=== PATIENT | female | born 1940 | race Caucasian/White ===

== ENCOUNTER 2017-03-09 05:23 | Inpatient (IN) ==
--- NOTE | 2017-03-07 13:31 | XRay Report ---
CLINICAL INFORMATION: Preoperative evaluation TECHNIQUE: Upright PA chest x-ray COMPARISON: Previous examinations dated 10/05/2016, 06/04/2016, 03/10/2016 FINDINGS: Lungs are negative. No parenchymal infiltrate or mass. Heart size and vascularity are normal. Mignon and mediastinum are negative. No pulmonary edema. No pulmonary congestion. Incidental note is made of an anterior cervical fusion plate IMPRESSION: Negative PA chest x-ray Interpreted and Authenticated by: Terence Quick 03/07/17
[2017-03-07 13:56] LABS: Basophils # (Auto) 0 K/mcL (0.0-0.3); Basophils % (Auto) 0.8 % (0.0-2.0); Eosinophils # (Auto) 0.2 K/mcL (0.0-0.7); Eosinophils % (Auto) 3.2 % (0.0-7.0); Granulocytes % (Auto) 65.2 % (38.0-78.0); Lymphocytes # (Auto) 1.4 K/mcL (1.5-4.8); Lymphocytes % (Auto) 22.6 % (15.5-49.0); Mean Cell Volume 93.9 fL (80.0-100.0); Mean Corpuscular HGB Conc 33.1 g/dL (31.0-36.0); Mean Corpuscular Hemoglobin 31.1 pg (26.0-34.0); Monocytes # (Auto) 0.5 K/mcL (0.1-0.9); Monocytes % (Auto) 8.2 % (1.0-12.0); Platelet Count 331 K/mcL (140-440); RBC 3.32 M/mcL (4.00-5.20); Red Cell Distribution Width 15.9 % (11.5-14.5)
[2017-03-07 14:05] LABS: Appearance,Urine CLEAR; Bilirubin,Urine NEG (NEG); Color,Urine YELLOW; Glucose,Urine (UA) NEGATIVE (NEG); Leukocyte Esterase,Urine NEG /uL (NEG); Nitrate,Urine NEG (NEG); Protein,Urine NEG (NEG); Specific Gravity,Urine 1.017 (1.000-1.035); Urine Blood NEG mg/dL (<0.03); Urobilinogen,Urine NEG (NEG)
[2017-03-07 14:22] LABS: ALT/SGPT 19 U/l (0-40); Albumin 4.6 gm/dL (3.2-5.2); Albumin/Globulin Ratio 2.1 (1.0-2.3); Alkaline Phosphatase 68 U/L (39-117); Blood Urea Nitrogen 34 mg/dl (8-23)
[~2017-03-09 05:23] MED LIST: 0.9 % SODIUM CHLORIDE 250 ML IV SCH
[2017-03-09] MEDS ORDERED: PIPERACILLIN SODIUM/TAZOBACTAM 3.375 GM in DEXTROSE 5% IN WATER 50 ML IV SCH (06:30)
[2017-03-09] MEDS ORDERED: metroNIDAZOLE 500 MG/100 ML BAG IV SCH (06:30)
[2017-03-09] MEDS ORDERED: PIPERACILLIN SODIUM/TAZOBACTAM 3.375 GM VIAL IV ONE (08:20)
[2017-03-09] MEDS ORDERED: LIDOCAINE HCL/PF 100 MG/5 ML SYRINGE IV ONE (08:20)
[2017-03-09] MEDS ORDERED: metroNIDAZOLE 500 MG/100 ML BAG IV ONE ×2 (08:20→11:10)
[2017-03-09] MEDS ORDERED: GLYCOPYRROLATE 0.2 MG/ML VIAL IV ONE (08:20)
[2017-03-09] MEDS ORDERED: fentaNYL 250 MCG/5 ML VIAL IV ONE (08:20)
[2017-03-09] MEDS ORDERED: MIDAZOLAM 2 MG/2 ML VIAL IV ONE (08:20)
[2017-03-09] MEDS ORDERED: ROCURONIUM 10 MG/ML ML IV ONE (08:20)
[2017-03-09] MEDS ORDERED: PROPOFOL 200 MG/20 ML VIAL IV ONE (08:20)
[2017-03-09] MEDS ORDERED: DEXAMETHASONE 10 MG/ML VIAL IV ONE (08:20)
[2017-03-09] MEDS ORDERED: HETASTARCH 6% 500 ML BAG IV ONE (08:20)
[2017-03-09] MEDS ORDERED: HYDROmorphone 2 MG/ML SYRINGE IV ONE (08:20)
[2017-03-09] MEDS ORDERED: ONDANSETRON 4 MG/2 ML VIAL IV ONE (08:20)
[2017-03-09] MEDS ORDERED: ePHEDrine 50 MG/ML AMPUL IV ONE (08:20)
[2017-03-09] MEDS ORDERED: NEOSTIGMINE 1 MG/ML VIAL IV ONE (08:20)
[2017-03-09] MEDS ORDERED: PHENYLEPHRINE 10 MG/ML VIAL IV ONE (08:20)
[2017-03-09] MEDS ORDERED: PIPERACILLIN SODIUM/TAZOBACTAM 3.375 GM in DEXTROSE 5% IN WATER 50 ML IV ONE (11:09)
--- NOTE | 2017-03-09 14:15 | Brief Operative Note ---
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
[2017-03-09] MEDS ORDERED: ACETAMINOPHEN 1,000 MG/100 ML BOTTLE IV PRN ×2 (14:33→14:36)
[2017-03-09] MEDS ORDERED: HYDROmorphone 2 MG/ML SYRINGE IV PRN (14:33)
[2017-03-09] MEDS ORDERED: 0.9 % SODIUM CHLORIDE 250 ML IV SCH (14:36)
[2017-03-09] MEDS: 0.9 % SODIUM CHLORIDE 1,000 ML IV SCH (15:10)
[2017-03-09] MEDS: HYDROmorphone 2 MG/ML SYRINGE IV PRN ×3 (16:21→21:53)
[2017-03-09] MEDS: ONDANSETRON 4 MG/2 ML VIAL IV PRN (16:40)
[2017-03-09] MEDS: metroNIDAZOLE 500 MG/100 ML BAG IV SCH ×2 (17:42→22:44)
[2017-03-09] MEDS: METOCLOPRAMIDE 10 MG/2 ML VIAL IV SCH (17:44)
[2017-03-09] MEDS ORDERED: METOCLOPRAMIDE 10 MG/2 ML VIAL IV SCH (18:00)
[2017-03-09] MEDS: PIPERACILLIN SODIUM/TAZOBACTAM 3.375 GM in DEXTROSE 5% IN WATER 50 ML IV SCH (18:52)
[2017-03-09] MEDS: 0.9 % SODIUM CHLORIDE 10 ML SYRINGE IV SCH (21:54)
[2017-03-10] MEDS: METOCLOPRAMIDE 10 MG/2 ML VIAL IV SCH ×4 (00:08→17:33)
[2017-03-10] MEDS: PIPERACILLIN SODIUM/TAZOBACTAM 3.375 GM in DEXTROSE 5% IN WATER 50 ML IV SCH ×4 (00:08→17:34)
[2017-03-10] MEDS: 0.9 % SODIUM CHLORIDE 1,000 ML IV SCH ×5 (00:09→20:31)
[2017-03-10] MEDS: ONDANSETRON 4 MG/2 ML VIAL IV PRN (04:09)
[2017-03-10] MEDS: HYDROmorphone 2 MG/ML SYRINGE IV PRN ×4 (04:09→23:25)
[2017-03-10] MEDS: metroNIDAZOLE 500 MG/100 ML BAG IV SCH ×5 (04:42→22:57)
[2017-03-10] MEDS: 0.9 % SODIUM CHLORIDE 10 ML SYRINGE IV SCH ×3 (05:29→21:11)
[2017-03-10 06:37] LABS: Basophils # (Auto) 0 K/mcL (0.0-0.3); Basophils % (Auto) 0 % (0.0-2.0); Eosinophils # (Auto) 0 K/mcL (0.0-0.7); Eosinophils % (Auto) 0 % (0.0-7.0); Granulocytes % (Auto) 92.4 % (38.0-78.0); Lymphocytes # (Auto) 0.3 K/mcL (1.5-4.8); Lymphocytes % (Auto) 1.9 % (15.5-49.0); Mean Cell Volume 94.1 fL (80.0-100.0); Mean Corpuscular HGB Conc 33.3 g/dL (31.0-36.0); Mean Corpuscular Hemoglobin 31.3 pg (26.0-34.0); Monocytes # (Auto) 0.8 K/mcL (0.1-0.9); Monocytes % (Auto) 5.7 % (1.0-12.0); Platelet Count 284 K/mcL (140-440); RBC 2.87 M/mcL (4.00-5.20); Red Cell Distribution Width 16.3 % (11.5-14.5)
[2017-03-10] MEDS: PANTOPRAZOLE 40 MG VIAL IV SCH (07:26)
[2017-03-10] MEDS ORDERED: PANTOPRAZOLE 40 MG VIAL IV SCH (07:30)
--- NOTE | 2017-03-10 11:41 | General Surgery Progress Note ---
Subjective Patient reports: still having pain, no flatus, no bowel movement, afebrile Narrative: Note initiated : 03/10/17 at 11:38 am Service Date, if different from initiated Date: [] Patient: Danni Dhillon 76 y/o F admitted on 03/09/17 for Colostomy Closure. Chief Complaint: [Patient is doing well. She has had an uneventful night. Her systolic blood pressure has been in the 90s. Her hemoglobin has drifted down to 9 and she will probably need to be transfused. Output through her DURAN is bloody. She does not complain of nausea. She denies chest pain or shortness of breath. Urine output has been acceptable.] Objective Temp Pulse Resp BP Pulse Ox 97.7 F 66 18 97/45 97 03/10/17 08:00 03/10/17 03:58 03/10/17 08:00 03/10/17 08:00 03/10/17 08:00 - Additional Data Intake & Output - Last 24 hours: Intake & Output 03/08/17 03/09/17 03/10/17 03/11/17 05:59 05:59 05:59 05:59 Intake Total 3400 / 3400 Output Total 1515 / 1515 30 / 30 Balance 1885 / 1885 -30 / -30 Weight 170 lb 165 lb 8 oz 175 lb 8 oz - General physical appearance moderate distress, moderate pain - Eyes PERRL - ENT no congestion - Neck no venous distension - Respiratory normal expansion, normal respiratory effort, clear to auscultation - Cardiovascular Cardiovascular exam: Present: normal rate and rhythm, RRR, +S1, +S2. Absent: JVD - Abdomen soft, tender, bowel sounds, distended (Abdomen is distended with active bowel sounds. Her incision looks good.) - Integumentary no rash, no growths, no abnormal pigmentation - Neurologic normal coordination, normal sensation - Psychiatric oriented to time, oriented to person, oriented to place, speech is normal, memory intact - Labs 03/10/17 03:55 03/07/17 12:26 Assessment and Plan (1) Status post colostomy takedown Status: Acute Assessment and plan: Stable first postoperative day Current Visit: Yes (2) Anemia Status: Chronic Assessment and plan: We will transfuse 2 units of packed red cells Current Visit: No (3) Gastroesophageal reflux disease with esophagitis Status: Chronic Assessment and plan: Pantoprazole 40 mg IV daily Current Visit: No (4) Hypertension, essential, benign Status: Chronic Assessment and plan: Hold antihypertensive medications Current Visit: No - Time Spent With Patient Total time spent is greater than 50% in coordination of care (as documented) at patient's floor/unit and/or counseling patient:
[2017-03-10] MEDS ORDERED: 0.9 % SODIUM CHLORIDE 250 ML IV SCH (11:45)
[2017-03-11] MEDS: PIPERACILLIN SODIUM/TAZOBACTAM 3.375 GM in DEXTROSE 5% IN WATER 50 ML IV SCH ×4 (00:11→18:42)
[2017-03-11] MEDS: METOCLOPRAMIDE 10 MG/2 ML VIAL IV SCH ×4 (00:14→17:19)
[2017-03-11] MEDS: 0.9 % SODIUM CHLORIDE 1,000 ML IV SCH ×3 (04:40→15:50)
[2017-03-11] MEDS: metroNIDAZOLE 500 MG/100 ML BAG IV SCH ×4 (05:32→23:00)
[2017-03-11] MEDS: 0.9 % SODIUM CHLORIDE 10 ML SYRINGE IV SCH ×3 (05:53→22:10)
[2017-03-11 06:21] LABS: Basophils # (Auto) 0 K/mcL (0.0-0.3); Basophils % (Auto) 0.2 % (0.0-2.0); Eosinophils # (Auto) 0 K/mcL (0.0-0.7); Eosinophils % (Auto) 0.1 % (0.0-7.0); Granulocytes % (Auto) 90.4 % (38.0-78.0); Lymphocytes # (Auto) 0.5 K/mcL (1.5-4.8); Lymphocytes % (Auto) 2.5 % (15.5-49.0); Mean Cell Volume 93.3 fL (80.0-100.0); Mean Corpuscular HGB Conc 33.5 g/dL (31.0-36.0); Mean Corpuscular Hemoglobin 31.3 pg (26.0-34.0); Monocytes # (Auto) 1.3 K/mcL (0.1-0.9); Monocytes % (Auto) 6.8 % (1.0-12.0); Platelet Count 269 K/mcL (140-440); RBC 3.65 M/mcL (4.00-5.20); Red Cell Distribution Width 16.6 % (11.5-14.5)
[2017-03-11] MEDS: PANTOPRAZOLE 40 MG VIAL IV SCH (07:39)
[2017-03-11] MEDS: ONDANSETRON 4 MG/2 ML VIAL IV PRN ×2 (07:39→13:29)
[2017-03-11] MEDS: HYDROmorphone 2 MG/ML SYRINGE IV PRN (07:50)
[2017-03-11 13:25] LABS: Basophils # (Auto) 0 K/mcL (0.0-0.3); Basophils % (Auto) 0 % (0.0-2.0); Eosinophils # (Auto) 0 K/mcL (0.0-0.7); Eosinophils % (Auto) 0 % (0.0-7.0); Granulocytes % (Auto) 92.4 % (38.0-78.0); Lymphocytes # (Auto) 0.4 K/mcL (1.5-4.8); Lymphocytes % (Auto) 2.4 % (15.5-49.0); Mean Cell Volume 93.2 fL (80.0-100.0); Mean Corpuscular HGB Conc 32.9 g/dL (31.0-36.0); Mean Corpuscular Hemoglobin 30.7 pg (26.0-34.0); Monocytes # (Auto) 0.9 K/mcL (0.1-0.9); Monocytes % (Auto) 5.2 % (1.0-12.0); Platelet Count 285 K/mcL (140-440); Red Cell Distribution Width 16.4 % (11.5-14.5)
[2017-03-11 13:42] LABS: ALT/SGPT 17 U/l (0-40); Albumin 3.4 gm/dL (3.2-5.2); Albumin/Globulin Ratio 1.6 (1.0-2.3); Alkaline Phosphatase 52 U/L (39-117); Bilirubin,Direct < 0.2 mg/dL (0.0-0.3); Blood Urea Nitrogen 15 mg/dl (8-23); Gamma Glutamyl Transpeptidase 13 U/L (5-36); Magnesium 1.9 mg/dL (1.6-2.5); Uric Acid 3.9 mg/dL (2.5-8.0)
--- NOTE | 2017-03-11 14:19 | General Surgery Progress Note ---
Subjective Patient reports: feels better, still having pain, no flatus, no bowel movement Narrative: Note initiated : 03/11/17 at 2:17 pm Service Date, if different from initiated Date: [] Patient: Danni Dhillon 76 y/o F admitted on 03/09/17 for Colostomy Closure. Chief Complaint: [Patient is doing fairly well. She complains of thirst. She has not been receiving ice chips and popsicles as ordered. She also would like to try the [employer]ICE so this will be instituted. She denies shortness of breath. She has not had flatus or bowel movement. DURAN drainage is serosanguineous and small volume.] Objective Temp Pulse Resp BP Pulse Ox 99.0 F H 79 18 146/71 96 03/11/17 12:00 03/11/17 12:00 03/11/17 12:00 03/11/17 08:00 03/11/17 12:00 - Additional Data Intake & Output - Last 24 hours: Intake & Output 03/09/17 03/10/17 03/11/17 03/12/17 05:59 05:59 05:59 05:59 Intake Total 3550 / 3550 3181 / 3181 250 / 250 Output Total 1515 / 1515 1979 / 1979 Balance 2034 / 2034 1201 / 1201 250 / 250 Weight 165 lb 8 oz 175 lb 8 oz 174 lb - General physical appearance no distress, moderate pain - Eyes PERRL - ENT no congestion - Neck no venous distension - Respiratory other (Coarse rhonchi bilaterally; she has very poor cough effort. No wheezes noted) - Cardiovascular Cardiovascular exam: Present: normal rate and rhythm, RRR, +S1, +S2. Absent: JVD - Abdomen soft, tender, bowel sounds, distended (Abdomen is distended with few active bowel sounds; DURAN drainage is serosanguineous; incision looks good) - Integumentary no rash, no growths, no abnormal pigmentation - Neurologic normal coordination, normal sensation - Psychiatric oriented to time, oriented to person, oriented to place, speech is normal, memory intact - Labs 03/11/17 12:29 03/11/17 12:29 Diabetes panel 03/11/17 Range/Units 12:29 Sodium 146 H (133-145) mmol/L Potassium 3.7 (3.3-5.1) mmol/L Chloride 112 H (96-108) mmol/L Carbon Dioxide 22 (22-30) mmol/L BUN 15 (8-23) mg/dl Creatinine 1.0 (0.6-1.1) mg/dl Glucose 125 H (70-105) mg/dL Calcium 8.1 L (8.6-10.4) mg/dl AST 22 (0-37) U/l ALT 17 (0-40) U/l Alkaline Phosphatase 52 (39-117) U/L Total Protein 5.5 L (5.9-8.4) gm/dL Albumin 3.4 (3.2-5.2) gm/dL Triglycerides 38 (<150) mg/dl Calcium panel 03/11/17 Range/Units 12:29 Calcium 8.1 L (8.6-10.4) mg/dl Phosphorus 1.9 L (2.7-4.5) mg/dL Albumin 3.4 (3.2-5.2) gm/dL Pituitary panel 03/11/17 Range/Units 12:29 Sodium 146 H (133-145) mmol/L Potassium 3.7 (3.3-5.1) mmol/L Chloride 112 H (96-108) mmol/L Carbon Dioxide 22 (22-30) mmol/L BUN 15 (8-23) mg/dl Creatinine 1.0 (0.6-1.1) mg/dl Glucose 125 H (70-105) mg/dL Calcium 8.1 L (8.6-10.4) mg/dl Adrenal panel 03/11/17 Range/Units 12:29 Sodium 146 H (133-145) mmol/L Potassium 3.7 (3.3-5.1) mmol/L Chloride 112 H (96-108) mmol/L Carbon Dioxide 22 (22-30) mmol/L BUN 15 (8-23) mg/dl Creatinine 1.0 (0.6-1.1) mg/dl Glucose 125 H (70-105) mg/dL Calcium 8.1 L (8.6-10.4) mg/dl Total Bilirubin 0.6 (0.0-1.0) mg/dL AST 22 (0-37) U/l ALT 17 (0-40) U/l Alkaline Phosphatase 52 (39-117) U/L Total Protein 5.5 L (5.9-8.4) gm/dL Albumin 3.4 (3.2-5.2) gm/dL Assessment and Plan (1) Status post colostomy takedown Status: Acute Assessment and plan: Stable second postoperative day Current Visit: Yes (2) Anemia Status: Chronic Assessment and plan: Posttransfusion hemoglobin 11.4. There is less blood per DURAN Current Visit: No (3) Gastroesophageal reflux disease with esophagitis Status: Chronic Assessment and plan: Pantoprazole 40 mg IV daily Current Visit: No (4) Hypertension, essential, benign Status: Chronic Assessment and plan: Hold antihypertensive medications Current Visit: No - Time Spent With Patient Total time spent is greater than 50% in coordination of care (as documented) at patient's floor/unit and/or counseling patient:
[2017-03-12] MEDS: METOCLOPRAMIDE 10 MG/2 ML VIAL IV SCH ×5 (00:11→23:52)
[2017-03-12] MEDS: PIPERACILLIN SODIUM/TAZOBACTAM 3.375 GM in DEXTROSE 5% IN WATER 50 ML IV SCH ×5 (00:15→23:52)
[2017-03-12] MEDS: 0.9 % SODIUM CHLORIDE 1,000 ML IV SCH ×4 (02:51→22:13)
[2017-03-12] MEDS: metroNIDAZOLE 500 MG/100 ML BAG IV SCH ×4 (04:41→22:36)
[2017-03-12 05:43] LABS: Basophils # (Auto) 0 K/mcL (0.0-0.3); Basophils % (Auto) 0.2 % (0.0-2.0); Eosinophils # (Auto) 0 K/mcL (0.0-0.7); Eosinophils % (Auto) 0 % (0.0-7.0); Granulocytes % (Auto) 91.9 % (38.0-78.0); Lymphocytes # (Auto) 0.5 K/mcL (1.5-4.8); Lymphocytes % (Auto) 2.9 % (15.5-49.0); Mean Cell Volume 93.6 fL (80.0-100.0); Mean Corpuscular HGB Conc 33.1 g/dL (31.0-36.0); Monocytes # (Auto) 0.8 K/mcL (0.1-0.9); Platelet Count 263 K/mcL (140-440); RBC 3.44 M/mcL (4.00-5.20); Red Cell Distribution Width 16.4 % (11.5-14.5)
[2017-03-12 06:01] LABS: ALT/SGPT 16 U/l (0-40); Albumin 3.2 gm/dL (3.2-5.2); Albumin/Globulin Ratio 1.5 (1.0-2.3); Alkaline Phosphatase 56 U/L (39-117); Bilirubin,Direct < 0.2 mg/dL (0.0-0.3); Blood Urea Nitrogen 15 mg/dl (8-23); Gamma Glutamyl Transpeptidase 15 U/L (5-36); Magnesium 1.9 mg/dL (1.6-2.5)
[2017-03-12] MEDS: 0.9 % SODIUM CHLORIDE 10 ML SYRINGE IV SCH ×3 (06:04→21:51)
[2017-03-12] MEDS: PANTOPRAZOLE 40 MG VIAL IV SCH (07:38)
--- NOTE | 2017-03-12 14:24 | General Surgery Progress Note ---
Subjective Patient reports: feels better, pain is less, flatus, bowel movement, diarrhea, afebrile Narrative: Note initiated : 03/12/17 at 2:22 pm Service Date, if different from initiated Date: [] Patient: Danni Dhillon 76 y/o F admitted on 03/09/17 for Colostomy Closure. Chief Complaint: [Patient is doing well. Multiple bowel movements and is passing flatus multiple times. She denies abdominal pain and does not have nausea. Nasogastric tube has drained minimal fluid. She has had some tachycardia up to 140 bpm but denies chest pain or shortness of breath. Her blood pressure is creeping up. DURAN drainage is serosanguineous.] Objective Temp Pulse Resp BP Pulse Ox 98.7 F 95 H 18 162/88 93 03/12/17 12:03 03/12/17 12:03 03/12/17 13:00 03/12/17 12:03 03/12/17 12:03 - Additional Data Intake & Output - Last 24 hours: Intake & Output 03/10/17 03/11/17 03/12/17 03/13/17 05:59 05:59 05:59 05:59 Intake Total 3550 / 3550 3181 / 3181 2642 / 2642 1150 / 1150 Output Total 1515 / 1515 1979 / 1979 50 / 50 Balance 2034 / 2034 1201 / 1201 627 / 627 1100 / 1100 Weight 175 lb 8 oz 174 lb 180 lb 8 oz - General physical appearance well nourished, no distress, moderate pain - Eyes PERRL - ENT no congestion - Neck no masses, no venous distension - Respiratory normal expansion, normal respiratory effort, clear to auscultation - Cardiovascular Cardiovascular exam: Present: irregular rhythm, +S1, +S2, tachycardia. Absent: JVD - Abdomen soft, tender, bowel sounds, distended (Abdomen is minimally distended. She has good active bowel sounds. DURAN drainage is serosanguineous. Her incision looks good.) - Integumentary no rash, no growths, no abnormal pigmentation - Neurologic normal coordination, normal sensation - Musculoskeletal normal gait, normal posture - Psychiatric oriented to time, oriented to person, oriented to place, speech is normal, memory intact - Labs 03/12/17 03:47 03/12/17 03:47 Diabetes panel 03/12/17 Range/Units 03:47 Sodium 146 H (133-145) mmol/L Potassium 3.3 (3.3-5.1) mmol/L Chloride 112 H (96-108) mmol/L Carbon Dioxide 20 L (22-30) mmol/L BUN 15 (8-23) mg/dl Creatinine 1.0 (0.6-1.1) mg/dl Glucose 116 H (70-105) mg/dL Calcium 8.4 L (8.6-10.4) mg/dl AST 20 (0-37) U/l ALT 16 (0-40) U/l Alkaline Phosphatase 56 (39-117) U/L Total Protein 5.4 L (5.9-8.4) gm/dL Albumin 3.2 (3.2-5.2) gm/dL Triglycerides 43 (<150) mg/dl Calcium panel 03/12/17 Range/Units 03:47 Calcium 8.4 L (8.6-10.4) mg/dl Phosphorus 1.1 L (2.7-4.5) mg/dL Albumin 3.2 (3.2-5.2) gm/dL Pituitary panel 03/12/17 Range/Units 03:47 Sodium 146 H (133-145) mmol/L Potassium 3.3 (3.3-5.1) mmol/L Chloride 112 H (96-108) mmol/L Carbon Dioxide 20 L (22-30) mmol/L BUN 15 (8-23) mg/dl Creatinine 1.0 (0.6-1.1) mg/dl Glucose 116 H (70-105) mg/dL Calcium 8.4 L (8.6-10.4) mg/dl Adrenal panel 03/12/17 Range/Units 03:47 Sodium 146 H (133-145) mmol/L Potassium 3.3 (3.3-5.1) mmol/L Chloride 112 H (96-108) mmol/L Carbon Dioxide 20 L (22-30) mmol/L BUN 15 (8-23) mg/dl Creatinine 1.0 (0.6-1.1) mg/dl Glucose 116 H (70-105) mg/dL Calcium 8.4 L (8.6-10.4) mg/dl Total Bilirubin 0.7 (0.0-1.0) mg/dL AST 20 (0-37) U/l ALT 16 (0-40) U/l Alkaline Phosphatase 56 (39-117) U/L Total Protein 5.4 L (5.9-8.4) gm/dL Albumin 3.2 (3.2-5.2) gm/dL Assessment and Plan (1) Status post colostomy takedown Status: Acute Assessment and plan: Stable third postoperative day Early return of the intestinal function with flatus and bowel movement Current Visit: Yes (2) Anemia Status: Chronic Assessment and plan: Posttransfusion hemoglobin 11.4. There is less blood per DURAN Current Visit: No (3) Gastroesophageal reflux disease with esophagitis Status: Chronic Assessment and plan: Pantoprazole 40 mg IV daily Current Visit: No (4) Hypertension, essential, benign Status: Chronic Assessment and plan: Hold antihypertensive medications Current Visit: No - Time Spent With Patient Total time spent is greater than 50% in coordination of care (as documented) at patient's floor/unit and/or counseling patient:
[2017-03-12] MEDS: METOPROLOL TARTRATE 5 MG/5 ML VIAL IV PRN ×2 (16:45→21:51)
[2017-03-12] MEDS ORDERED: DIGOXIN 500 MCG/2 ML AMPUL IV ONE ×6 (17:21→18:30)
[2017-03-12] MEDS ORDERED: METOPROLOL SUCCINATE 25 MG TAB.XL.24H PO ONE (20:00)
[2017-03-12] MEDS ORDERED: 0.9 % SODIUM CHLORIDE 1,000 ML IV SCH (20:15)
[2017-03-13] MEDS: metroNIDAZOLE 500 MG/100 ML BAG IV SCH ×4 (04:52→22:57)
[2017-03-13] MEDS: 0.9 % SODIUM CHLORIDE 10 ML SYRINGE IV SCH ×3 (05:39→22:57)
[2017-03-13] MEDS: PIPERACILLIN SODIUM/TAZOBACTAM 3.375 GM in DEXTROSE 5% IN WATER 50 ML IV SCH ×4 (05:39→23:50)
[2017-03-13] MEDS: METOCLOPRAMIDE 10 MG/2 ML VIAL IV SCH ×4 (05:39→23:50)
[2017-03-13 06:11] LABS: Basophils # (Auto) 0 K/mcL (0.0-0.3); Basophils % (Auto) 0.1 % (0.0-2.0); Eosinophils # (Auto) 0 K/mcL (0.0-0.7); Eosinophils % (Auto) 0.2 % (0.0-7.0); Granulocytes % (Auto) 87.7 % (38.0-78.0); Lymphocytes # (Auto) 0.6 K/mcL (1.5-4.8); Lymphocytes % (Auto) 4.4 % (15.5-49.0); Mean Cell Volume 93.5 fL (80.0-100.0); Mean Corpuscular HGB Conc 33.1 g/dL (31.0-36.0); Monocytes % (Auto) 7.6 % (1.0-12.0); Platelet Count 286 K/mcL (140-440); RBC 3.45 M/mcL (4.00-5.20); Red Cell Distribution Width 15.6 % (11.5-14.5)
[2017-03-13 06:50] LABS: ALT/SGPT 16 U/l (0-40); Albumin 3.2 gm/dL (3.2-5.2); Albumin/Globulin Ratio 1.5 (1.0-2.3); Alkaline Phosphatase 56 U/L (39-117); Bilirubin,Direct < 0.2 mg/dL (0.0-0.3); Blood Urea Nitrogen 17 mg/dl (8-23); Gamma Glutamyl Transpeptidase 16 U/L (5-36); Magnesium 1.8 mg/dL (1.6-2.5); Uric Acid 4.5 mg/dL (2.5-8.0)
[2017-03-13] MEDS: LEVOTHYROXINE SODIUM 112 MCG TABLET PO SCH (07:53)
[2017-03-13] MEDS: PANTOPRAZOLE 40 MG VIAL IV SCH (07:53)
[2017-03-13] MEDS ORDERED: POTASSIUM PHOSPHATE 40 MEQ in DEXTROSE 5% IN WATER 500 ML IV ONE (13:00)
--- NOTE | 2017-03-13 13:09 | General Surgery Progress Note ---
Subjective Patient reports: feels better, pain is less, tolerating liquids well, flatus, bowel movement, diarrhea, afebrile Narrative: Note initiated : 03/13/17 at 1:06 pm Service Date, if different from initiated Date: [] Patient: Danni Dhillon 76 y/o F admitted on 03/09/17 for Colostomy Closure. Chief Complaint: [Patient continues to do well. She had atrial fibrillation with rapid ventricular response last evening. She converted to sinus rhythm with IV dig 2 and metoprolol IV 2. She is now in sinus rhythm with a controlled response less than 90. She did not have any chest pain or shortness of breath. Her serum phosphorus and potassium on decreased and will be replaced. She is tolerating liquids without difficulty and is having multiple bowel movements. DURAN drainage is serosanguineous and minimal in volume.] Objective Temp Pulse Resp BP Pulse Ox 98.3 F 116 H 16 165/83 94 03/13/17 12:00 03/12/17 19:55 03/13/17 12:00 03/13/17 12:00 03/13/17 12:00 - Additional Data Intake & Output - Last 24 hours: Intake & Output 03/11/17 03/12/17 03/13/17 03/14/17 05:59 05:59 05:59 05:59 Intake Total 3181 / 3181 2642 / 2642 2500 / 2500 350 / 350 Output Total 1979 / 1979 2540 / 2540 300 / 300 Balance 1201 / 1201 627 / 627 -40 / -40 50 / 50 Weight 174 lb 180 lb 8 oz 181 lb - General physical appearance well nourished, no distress - Eyes PERRL - ENT no congestion - Neck no venous distension - Respiratory other (Lungs with coarse tubular breath sounds bilaterally with coarse wheezes. Inspiratory effort is extremely poor with measured volume of only about 600 cc on inspiration. Patient does not exert much effort using her inspiratory care.) - Cardiovascular Cardiovascular exam: Present: irregular rhythm, +S1, +S2. Absent: JVD - Abdomen soft, tender, distended (Abdomen is mildly distended she has good active bowel sounds. Her incision looks good and DURAN drainage is serosanguineous) - Integumentary no rash, no growths, no abnormal pigmentation - Neurologic normal coordination, normal sensation - Musculoskeletal normal gait, normal posture - Psychiatric oriented to time, oriented to person, oriented to place, speech is normal, memory intact - Labs 03/13/17 03:44 03/13/17 03:44 Diabetes panel 03/13/17 Range/Units 03:44 Sodium 148 H (133-145) mmol/L Potassium 3.3 (3.3-5.1) mmol/L Chloride 112 H (96-108) mmol/L Carbon Dioxide 22 (22-30) mmol/L BUN 17 (8-23) mg/dl Creatinine 1.0 (0.6-1.1) mg/dl Glucose 119 H (70-105) mg/dL Calcium 8.5 L (8.6-10.4) mg/dl AST 21 (0-37) U/l ALT 16 (0-40) U/l Alkaline Phosphatase 56 (39-117) U/L Total Protein 5.4 L (5.9-8.4) gm/dL Albumin 3.2 (3.2-5.2) gm/dL Triglycerides 50 (<150) mg/dl Calcium panel 03/13/17 Range/Units 03:44 Calcium 8.5 L (8.6-10.4) mg/dl Phosphorus 1.1 L (2.7-4.5) mg/dL Albumin 3.2 (3.2-5.2) gm/dL Pituitary panel 03/13/17 Range/Units 03:44 Sodium 148 H (133-145) mmol/L Potassium 3.3 (3.3-5.1) mmol/L Chloride 112 H (96-108) mmol/L Carbon Dioxide 22 (22-30) mmol/L BUN 17 (8-23) mg/dl Creatinine 1.0 (0.6-1.1) mg/dl Glucose 119 H (70-105) mg/dL Calcium 8.5 L (8.6-10.4) mg/dl Adrenal panel 03/13/17 Range/Units 03:44 Sodium 148 H (133-145) mmol/L Potassium 3.3 (3.3-5.1) mmol/L Chloride 112 H (96-108) mmol/L Carbon Dioxide 22 (22-30) mmol/L BUN 17 (8-23) mg/dl Creatinine 1.0 (0.6-1.1) mg/dl Glucose 119 H (70-105) mg/dL Calcium 8.5 L (8.6-10.4) mg/dl Total Bilirubin 0.6 (0.0-1.0) mg/dL AST 21 (0-37) U/l ALT 16 (0-40) U/l Alkaline Phosphatase 56 (39-117) U/L Total Protein 5.4 L (5.9-8.4) gm/dL Albumin 3.2 (3.2-5.2) gm/dL Assessment and Plan (1) Status post colostomy takedown Status: Acute Assessment and plan: Stable fourth postoperative day Early return of the intestinal function with flatus and bowel movement Current Visit: Yes (2) Anemia Status: Chronic Assessment and plan: Posttransfusion hemoglobin 11.4. There is less blood per DURAN Current Visit: No (3) Gastroesophageal reflux disease with esophagitis Status: Chronic Assessment and plan: Pantoprazole 40 mg IV daily Current Visit: No (4) Hypertension, essential, benign Status: Chronic Assessment and plan: Hold antihypertensive medications Current Visit: No (5) Atrial fibrillation Status: Acute Assessment and plan: Heart rate is controlled and she is primarily in sinus rhythm on digoxin and metoprolol IV Current Visit: Yes - Time Spent With Patient Total time spent is greater than 50% in coordination of care (as documented) at patient's floor/unit and/or counseling patient:
[2017-03-13] MEDS: DIGOXIN 500 MCG/2 ML AMPUL IV SCH (13:46)
--- NOTE | 2017-03-13 16:41 | XRay Report ---
CLINICAL INFORMATION: Wheezing. Abnormal physical examination. TECHNIQUE: AP, semierect portable chest x-ray COMPARISON: Previous chest x-rays dated 03/07/2017, 10/05/2016, 06/04/2016 FINDINGS: Bilateral pulmonary parenchymal infiltrates. There are bibasilar infiltrates. There is dense consolidation in the right upper lobe. There is right perihilar infiltrate. These findings are consistent with pneumonia. Infiltrates are new since 03/07/2017. No change in heart size or pulmonary vascularity. Mild blunting of left costophrenic angle consistent with small effusion IMPRESSION: Bilateral parenchymal infiltrates with dense right upper lobe consolidation. Appearance is consistent with pneumonia. Interpreted and Authenticated by: Terence Quick 03/13/17
[2017-03-14] MEDS: PIPERACILLIN SODIUM/TAZOBACTAM 3.375 GM in DEXTROSE 5% IN WATER 50 ML IV SCH ×4 (05:04→23:53)
[2017-03-14] MEDS: metroNIDAZOLE 500 MG/100 ML BAG IV SCH ×4 (05:46→22:50)
[2017-03-14] MEDS: METOCLOPRAMIDE 10 MG/2 ML VIAL IV SCH (05:46)
[2017-03-14 05:55] LABS: Basophils # (Auto) 0.1 K/mcL (0.0-0.3); Basophils % (Auto) 0.6 % (0.0-2.0); Eosinophils # (Auto) 0.1 K/mcL (0.0-0.7); Eosinophils % (Auto) 1.3 % (0.0-7.0); Granulocytes % (Auto) 86.2 % (38.0-78.0); Lymphocytes # (Auto) 0.7 K/mcL (1.5-4.8); Lymphocytes % (Auto) 5.9 % (15.5-49.0); Mean Cell Volume 91.5 fL (80.0-100.0); Mean Corpuscular HGB Conc 34.3 g/dL (31.0-36.0); Mean Corpuscular Hemoglobin 31.4 pg (26.0-34.0); Monocytes # (Auto) 0.7 K/mcL (0.1-0.9); Platelet Count 271 K/mcL (140-440); RBC 3.27 M/mcL (4.00-5.20); Red Cell Distribution Width 14.6 % (11.5-14.5)
[2017-03-14] MEDS: 0.9 % SODIUM CHLORIDE 10 ML SYRINGE IV SCH ×3 (05:58→21:20)
[2017-03-14] MEDS: LEVOTHYROXINE SODIUM 112 MCG TABLET PO SCH (06:52)
[2017-03-14] MEDS: PANTOPRAZOLE 40 MG VIAL IV SCH (06:52)
[2017-03-14] MEDS: IPRATROPIUM/ALBUTEROL 3 ML AMPUL.NEB NEB SCH ×4 (11:58→23:11)
[2017-03-14] MEDS: DIGOXIN 500 MCG/2 ML AMPUL IV SCH (14:04)
--- NOTE | 2017-03-14 15:14 | General Surgery Progress Note ---
Subjective Patient reports: feels better, pain is less, tolerating liquids well, flatus, bowel movement, shortness of breath, afebrile Narrative: Note initiated : 03/14/17 at 3:12 pm Service Date, if different from initiated Date: [] Patient: Danni Dhillon 76 y/o F admitted on 03/09/17 for Colostomy Closure. Chief Complaint: [Patient is having no difficulty referable to her GI tract. She is tolerating full liquids and is having multiple bowel movements and passing copious flatus. She however has been poorly cooperative with regards to breathing and she has had mild hypoxemia and required more oxygen to maintain her saturation above 92%. Chest x-ray shows developing pneumonitis in the right apex and right mid lung field. She is made aware of this and strongly encouraged to participate with her lung toilet. She will get DuoNeb's every 4 hours. She will also be required to be out of bed sitting up as much as possible and to use her inspiratory care every hour while awake. Hopefully her pneumonitis will not progress.] Objective Temp Pulse Resp BP Pulse Ox 98.6 F 77 16 142/64 93 03/14/17 11:59 03/14/17 12:00 03/14/17 12:00 03/14/17 11:59 03/14/17 11:59 - Additional Data Intake & Output - Last 24 hours: Intake & Output 03/12/17 03/13/17 03/14/17 03/15/17 05:59 05:59 05:59 05:59 Intake Total 2642 / 2642 2500 / 2500 1400 / 1400 1764.0909 / 1764.0909 Output Total 2014 2540 / 2540 1460 / 1460 440 / 440 Balance 627 / 627 -40 / -40 -60 / -60 1324.0909 / 1324.0909 Weight 180 lb 8 oz 181 lb 181 lb 6.4 oz 181 lb 6.4 oz - General physical appearance no distress - Eyes PERRL - ENT no congestion - Neck no venous distension - Respiratory other (Decreased breath sounds bilaterally due to poor inspiratory effort. She has markedly decreased lung sounds on the right with coarse tubular breath sounds and coarse wheezes on the right) - Cardiovascular Cardiovascular exam: Present: irregular rhythm, +S1, +S2. Absent: JVD - Abdomen soft, non tender, bowel sounds (Good active bowel sounds throughout; incision looks good; DURAN drainage is serosanguineous) - Integumentary no rash, no growths, no abnormal pigmentation - Neurologic normal coordination, normal sensation - Musculoskeletal normal gait, normal posture - Psychiatric oriented to time, oriented to person, oriented to place, speech is normal, memory intact - Labs 03/14/17 03:37 03/13/17 03:44 Assessment and Plan (1) Status post colostomy takedown Status: Acute Assessment and plan: Stable fifth postoperative day Early return of the intestinal function with flatus and bowel movement Current Visit: Yes (2) Anemia Status: Chronic Assessment and plan: Posttransfusion hemoglobin 11.4. There is less blood per DURAN Current Visit: No (3) Gastroesophageal reflux disease with esophagitis Status: Chronic Assessment and plan: Pantoprazole 40 mg IV daily Current Visit: No (4) Hypertension, essential, benign Status: Chronic Assessment and plan: Hold antihypertensive medications Current Visit: No (5) Atrial fibrillation Status: Acute Assessment and plan: Heart rate is controlled and she is primarily in sinus rhythm on digoxin and metoprolol IV Current Visit: Yes (6) Pneumonitis Status: Acute Assessment and plan: Increase in Spira care every hour DuoNeb every 4 hours Out of bed as much as possible Current Visit: Yes - Time Spent With Patient Total time spent is greater than 50% in coordination of care (as documented) at patient's floor/unit and/or counseling patient:
[2017-03-15] MEDS: IPRATROPIUM/ALBUTEROL 3 ML AMPUL.NEB NEB SCH ×6 (03:23→23:04)
[2017-03-15] MEDS: metroNIDAZOLE 500 MG/100 ML BAG IV SCH ×2 (04:51→11:01)
[2017-03-15] MEDS: 0.9 % SODIUM CHLORIDE 10 ML SYRINGE IV SCH ×3 (05:56→21:18)
[2017-03-15] MEDS: PIPERACILLIN SODIUM/TAZOBACTAM 3.375 GM in DEXTROSE 5% IN WATER 50 ML IV SCH ×4 (05:56→17:53)
[2017-03-15] MEDS: ONDANSETRON 4 MG/2 ML VIAL IV PRN (07:07)
[2017-03-15] MEDS: PANTOPRAZOLE 40 MG VIAL IV SCH (07:32)
[2017-03-15] MEDS: LEVOTHYROXINE SODIUM 112 MCG TABLET PO SCH (07:32)
--- NOTE | 2017-03-15 08:07 | XRay Report ---
HISTORY: Reason for Exam: Follow-up pulmonary infiltrates FINDINGS: There are residual mild generalized infiltrates in both lungs. The greatest involvement is in the right upper lobe and above the left diaphragm and medial to the left heart border. There has been significant improvement since 03/13/17. There is a tiny left-sided pleural effusion. The heart size is normal.. Distal end of the right clavicle has been previously resected. IMPRESSION: Resolving bilateral pneumonia Interpreted and Authenticated by: Shady Mazariegos 03/15/17
--- NOTE | 2017-03-15 11:08 | General Surgery Progress Note ---
Subjective Patient reports: feels better, pain is less, tolerating liquids well, flatus, bowel movement, afebrile Narrative: Note initiated : 03/15/17 at 11:05 am Service Date, if different from initiated Date: [] Patient: Danni Dhillon 76 y/o F admitted on 03/09/17 for Colostomy Closure. Chief Complaint: [Patient is more cooperative today. She has a more productive cough. She is moving much more air in her lungs bilaterally. She still has coarse tubular breath sounds and rhonchi. Air movement on the right is less than on the left. She denies abdominal pain and she is tolerated full liquids without difficulty.] Objective Temp Pulse Resp BP Pulse Ox 98.4 F 83 20 127/66 93 03/15/17 07:34 03/15/17 08:01 03/15/17 08:01 03/15/17 08:36 03/15/17 08:01 - Additional Data Intake & Output - Last 24 hours: Intake & Output 03/13/17 03/14/17 03/15/17 03/16/17 05:59 05:59 05:59 05:59 Intake Total 2500 / 2500 1400 / 1400 3354.0909 / 3354.0909 370 / 370 Output Total 2540 / 2540 1460 / 1460 1065 / 1065 100 / 100 Balance -40 / -40 -60 / -60 2289.0909 / 2289.0909 270 / 270 Weight 181 lb 181 lb 6.4 oz 182 lb - General physical appearance no distress, no pain - Eyes PERRL - ENT no congestion - Neck no venous distension - Respiratory other (Coarse tubular breath sounds and coarse wheezes bilaterally with decreased air movement on the right) - Cardiovascular Cardiovascular exam: Present: irregular rhythm, +S1, +S2. Absent: JVD - Abdomen soft, non tender (Abdomen is nondistended. She has good active bowel sounds. Her incision looks good.) - Neurologic normal coordination, normal sensation - Musculoskeletal normal gait, normal posture - Psychiatric oriented to time, oriented to person, oriented to place, speech is normal, memory intact - Labs 03/14/17 03:37 03/13/17 03:44 Assessment and Plan (1) Status post colostomy takedown Status: Acute Assessment and plan: Stable sixth postoperative day Early return of the intestinal function with flatus and bowel movement Current Visit: Yes (2) Anemia Status: Chronic Assessment and plan: . There is less blood per DURAN Current Visit: No (3) Gastroesophageal reflux disease with esophagitis Status: Chronic Assessment and plan: Pantoprazole 40 mg IV daily Current Visit: No (4) Hypertension, essential, benign Status: Chronic Assessment and plan: Hold antihypertensive medications Current Visit: No (5) Atrial fibrillation Status: Acute Assessment and plan: Heart rate is controlled and she is primarily in sinus rhythm on digoxin and metoprolol IV Current Visit: Yes (6) Pneumonitis Status: Acute Assessment and plan: Increase in Spira care every hour DuoNeb every 4 hours Out of bed as much as possible Current Visit: Yes - Time Spent With Patient Total time spent is greater than 50% in coordination of care (as documented) at patient's floor/unit and/or counseling patient:
[2017-03-15] MEDS ORDERED: MEPERIDINE 50 MG TABLET PO PRN (11:12)
[2017-03-15] MEDS ORDERED: ACETAMINOPHEN 1,000 MG/100 ML BOTTLE IV PRN (12:01)
[2017-03-15] MEDS ORDERED: ONDANSETRON 4 MG/2 ML VIAL IV PRN (12:01)
[2017-03-15 13:52] LABS: ALT/SGPT 16 U/l (0-40); Albumin 3.4 gm/dL (3.2-5.2); Albumin/Globulin Ratio 1.8 (1.0-2.3); Alkaline Phosphatase 44 U/L (39-117); Bilirubin,Direct < 0.2 mg/dL (0.0-0.3); Blood Urea Nitrogen 14 mg/dl (8-23); Gamma Glutamyl Transpeptidase 17 U/L (5-36); Magnesium 1.6 mg/dL (1.6-2.5); Uric Acid 2.5 mg/dL (2.5-8.0)
[2017-03-15 13:54] LABS: Basophils # (Auto) 0 K/mcL (0.0-0.3); Basophils % (Auto) 0.4 % (0.0-2.0); Eosinophils # (Auto) 0.2 K/mcL (0.0-0.7); Eosinophils % (Auto) 2.3 % (0.0-7.0); Granulocytes % (Auto) 77.4 % (38.0-78.0); Lymphocytes # (Auto) 0.8 K/mcL (1.5-4.8); Mean Cell Volume 92.9 fL (80.0-100.0); Mean Corpuscular HGB Conc 33.8 g/dL (31.0-36.0); Mean Corpuscular Hemoglobin 31.4 pg (26.0-34.0); Monocytes # (Auto) 0.8 K/mcL (0.1-0.9); Monocytes % (Auto) 9.9 % (1.0-12.0); Platelet Count 312 K/mcL (140-440); Red Cell Distribution Width 15.3 % (11.5-14.5)
[2017-03-15] MEDS ORDERED: POTASSIUM CHLORIDE 40 MEQ in DEXTROSE 5% IN WATER 500 ML IV ONE (13:57)
[2017-03-15] MEDS ORDERED: DIGOXIN 125 MCG TABLET PO SCH (14:00)
[2017-03-15] MEDS: MEPERIDINE 50 MG TABLET PO PRN ×2 (15:16→21:11)
[2017-03-15] MEDS: DIGOXIN 125 MCG TABLET PO SCH (15:18)
[2017-03-15] MEDS: BRIMONIDINE TARTRATE OD SCH (20:26)
[2017-03-15] MEDS: LATANOPROST 0.005% OS SCH (20:26)
[2017-03-15] MEDS ORDERED: BRIMONIDINE TARTRATE OD SCH (21:00)
[2017-03-15] MEDS ORDERED: LATANOPROST 0.005% OS SCH (21:00)
[2017-03-16] MEDS: IPRATROPIUM/ALBUTEROL 3 ML AMPUL.NEB NEB SCH ×6 (03:02→23:17)
[2017-03-16 05:01] LABS: Basophils # (Auto) 0 K/mcL (0.0-0.3); Basophils % (Auto) 0.6 % (0.0-2.0); Eosinophils # (Auto) 0.4 K/mcL (0.0-0.7); Eosinophils % (Auto) 5.1 % (0.0-7.0); Granulocytes % (Auto) 71.9 % (38.0-78.0); Lymphocytes % (Auto) 12.5 % (15.5-49.0); Mean Cell Volume 92.4 fL (80.0-100.0); Mean Corpuscular HGB Conc 33.3 g/dL (31.0-36.0); Mean Corpuscular Hemoglobin 30.8 pg (26.0-34.0); Monocytes # (Auto) 0.8 K/mcL (0.1-0.9); Monocytes % (Auto) 9.9 % (1.0-12.0); Platelet Count 301 K/mcL (140-440); RBC 3.14 M/mcL (4.00-5.20); Red Cell Distribution Width 15.8 % (11.5-14.5)
[2017-03-16 05:25] LABS: ALT/SGPT 13 U/l (0-40); Albumin/Globulin Ratio 1.4 (1.0-2.3); Alkaline Phosphatase 41 U/L (39-117); Bilirubin,Direct < 0.2 mg/dL (0.0-0.3); Blood Urea Nitrogen 13 mg/dl (8-23); Gamma Glutamyl Transpeptidase 17 U/L (5-36); Magnesium 1.6 mg/dL (1.6-2.5); Uric Acid 2.3 mg/dL (2.5-8.0)
[2017-03-16] MEDS: PIPERACILLIN SODIUM/TAZOBACTAM 3.375 GM in DEXTROSE 5% IN WATER 50 ML IV SCH ×4 (05:34→17:42)
[2017-03-16] MEDS: 0.9 % SODIUM CHLORIDE 10 ML SYRINGE IV SCH ×3 (05:34→23:08)
[2017-03-16] MEDS ORDERED: PANTOPRAZOLE 40 MG VIAL IV SCH (07:30)
[2017-03-16] MEDS: PANTOPRAZOLE 40 MG VIAL IV SCH (08:16)
[2017-03-16] MEDS: METOPROLOL SUCCINATE 25 MG TAB.XL.24H PO SCH (08:17)
[2017-03-16] MEDS: LEVOTHYROXINE SODIUM 112 MCG TABLET PO SCH (08:17)
[2017-03-16] MEDS: BRIMONIDINE TARTRATE OD SCH ×2 (08:18→21:00)
--- NOTE | 2017-03-16 08:26 | XRay Report ---
HISTORY: Reason for Exam:f/u of pneumothorax and pneumonia. FINDINGS: No pneumothorax or pleural effusion are present. Patient still has mild bilateral pneumonia with involvement in the right upper lobe and medially in the left lower lobe. The heart size is normal. There has been no significant change since 03/15/17. IMPRESSION: Stable mild bilateral pneumonia with greatest involvement in the right upper lobe Interpreted and Authenticated by: Shady Mazariegos 03/16/17
[2017-03-16] MEDS ORDERED: METOPROLOL SUCCINATE 25 MG TAB.XL.24H PO SCH (09:00)
[2017-03-16] MEDS: DIGOXIN 125 MCG TABLET PO SCH (14:12)
[2017-03-16] MEDS ORDERED: POTASSIUM PHOSPHATE 40 MEQ in DEXTROSE 5% IN WATER 500 ML IV ONE (16:07)
--- NOTE | 2017-03-16 16:13 | General Surgery Progress Note ---
Subjective Patient reports: feels better, pain is less, tolerating a regular diet, flatus, bowel movement, afebrile Narrative: Note initiated : 03/16/17 at 4:10 pm Service Date, if different from initiated Date: [] Patient: Danni Dhillon 76 y/o F admitted on 03/09/17 for Colostomy Closure. Chief Complaint: [Patient is doing much better. She has minimal nonproductive cough. She has good oxygen saturation of 95% on room air. Her lungs are much clearer especially on the right. Chest x-ray is significantly improved.] Objective Temp Pulse Resp BP Pulse Ox 98.1 F 78 20 115/74 95 03/16/17 12:00 03/16/17 11:05 03/16/17 12:00 03/16/17 12:00 03/16/17 12:00 - Additional Data Intake & Output - Last 24 hours: Intake & Output 03/14/17 03/15/17 03/16/17 03/17/17 05:59 05:59 05:59 05:59 Intake Total 1400 / 1400 3354.0909 / 3354.0909 1580 / 1580 490 / 490 Output Total 1460 / 1460 1065 / 1065 115 / 115 Balance -60 / -60 2289.0909 / 2289.0909 1465 / 1465 490 / 490 Weight 181 lb 6.4 oz 182 lb 181 lb 181 lb - Respiratory normal expansion, normal respiratory effort, clear to auscultation - Cardiovascular Cardiovascular exam: Present: irregular rhythm, +S1, +S2. Absent: JVD - Abdomen soft, non tender, bowel sounds (Abdomen is benign and nontender. She has good active bowel sounds. Her incision looks good.) - Integumentary no rash, no growths, no abnormal pigmentation - Neurologic normal coordination, normal sensation - Musculoskeletal normal gait, normal posture - Psychiatric oriented to time, oriented to person, oriented to place, speech is normal, memory intact - Labs 03/16/17 03:40 03/16/17 03:40 Diabetes panel 03/16/17 Range/Units 03:40 Sodium 144 (133-145) mmol/L Potassium 3.0 L (3.3-5.1) mmol/L Chloride 105 (96-108) mmol/L Carbon Dioxide 26 (22-30) mmol/L BUN 13 (8-23) mg/dl Creatinine 0.9 (0.6-1.1) mg/dl Glucose 116 H (70-105) mg/dL Calcium 8.1 L (8.6-10.4) mg/dl AST 13 (0-37) U/l ALT 13 (0-40) U/l Alkaline Phosphatase 41 (39-117) U/L Total Protein 5.1 L (5.9-8.4) gm/dL Albumin 3.0 L (3.2-5.2) gm/dL Triglycerides 69 (<150) mg/dl Calcium panel 03/16/17 Range/Units 03:40 Calcium 8.1 L (8.6-10.4) mg/dl Phosphorus 1.9 L (2.7-4.5) mg/dL Albumin 3.0 L (3.2-5.2) gm/dL Pituitary panel 03/16/17 Range/Units 03:40 Sodium 144 (133-145) mmol/L Potassium 3.0 L (3.3-5.1) mmol/L Chloride 105 (96-108) mmol/L Carbon Dioxide 26 (22-30) mmol/L BUN 13 (8-23) mg/dl Creatinine 0.9 (0.6-1.1) mg/dl Glucose 116 H (70-105) mg/dL Calcium 8.1 L (8.6-10.4) mg/dl Adrenal panel 03/16/17 Range/Units 03:40 Sodium 144 (133-145) mmol/L Potassium 3.0 L (3.3-5.1) mmol/L Chloride 105 (96-108) mmol/L Carbon Dioxide 26 (22-30) mmol/L BUN 13 (8-23) mg/dl Creatinine 0.9 (0.6-1.1) mg/dl Glucose 116 H (70-105) mg/dL Calcium 8.1 L (8.6-10.4) mg/dl Total Bilirubin 0.4 (0.0-1.0) mg/dL AST 13 (0-37) U/l ALT 13 (0-40) U/l Alkaline Phosphatase 41 (39-117) U/L Total Protein 5.1 L (5.9-8.4) gm/dL Albumin 3.0 L (3.2-5.2) gm/dL Assessment and Plan (1) Status post colostomy takedown Status: Acute Assessment and plan: Stable 7th postoperative day Current Visit: Yes (2) Anemia Status: Chronic Assessment and plan: Stable Current Visit: No (3) Gastroesophageal reflux disease with esophagitis Status: Chronic Assessment and plan: Pantoprazole 40 mg IV daily Current Visit: No (4) Hypertension, essential, benign Status: Chronic Assessment and plan: Hold antihypertensive medications Current Visit: No (5) Atrial fibrillation Status: Acute Assessment and plan: Heart rate is controlled and she is primarily in sinus rhythm on digoxin and metoprolol IV Current Visit: Yes (6) Pneumonitis Status: Acute Assessment and plan: Increase in Spira care every hour DuoNeb every 4 hours Out of bed as much as possible Current Visit: Yes - Time Spent With Patient Total time spent is greater than 50% in coordination of care (as documented) at patient's floor/unit and/or counseling patient:
[2017-03-16] MEDS ORDERED: MAGNESIUM SULFATE 32.48 MEQ in DEXTROSE 5% IN WATER 50 ML IV ONE (16:21)
[2017-03-16] MEDS: LATANOPROST 0.005% OS SCH (21:00)
[2017-03-17] MEDS: PIPERACILLIN SODIUM/TAZOBACTAM 3.375 GM in DEXTROSE 5% IN WATER 50 ML IV SCH ×2 (00:15→05:33)
[2017-03-17] MEDS: IPRATROPIUM/ALBUTEROL 3 ML AMPUL.NEB NEB SCH ×2 (03:42→07:00)
[2017-03-17] MEDS: 0.9 % SODIUM CHLORIDE 10 ML SYRINGE IV SCH (05:34)
[2017-03-17 07:07] LABS: Basophils # (Auto) 0 K/mcL (0.0-0.3); Basophils % (Auto) 0.6 % (0.0-2.0); Eosinophils # (Auto) 0.5 K/mcL (0.0-0.7); Granulocytes % (Auto) 71.2 % (38.0-78.0); Lymphocytes # (Auto) 0.9 K/mcL (1.5-4.8); Lymphocytes % (Auto) 11.9 % (15.5-49.0); Mean Cell Volume 92.7 fL (80.0-100.0); Mean Corpuscular HGB Conc 33.5 g/dL (31.0-36.0); Mean Corpuscular Hemoglobin 31.1 pg (26.0-34.0); Monocytes # (Auto) 0.8 K/mcL (0.1-0.9); Monocytes % (Auto) 10.3 % (1.0-12.0); Platelet Count 362 K/mcL (140-440); RBC 3.33 M/mcL (4.00-5.20); Red Cell Distribution Width 15.3 % (11.5-14.5)
[2017-03-17] MEDS: PANTOPRAZOLE 40 MG VIAL IV SCH (07:14)
[2017-03-17] MEDS: LEVOTHYROXINE SODIUM 112 MCG TABLET PO SCH (07:14)
[2017-03-17 07:43] LABS: ALT/SGPT 14 U/l (0-40); Albumin 3.4 gm/dL (3.2-5.2); Albumin/Globulin Ratio 1.5 (1.0-2.3); Alkaline Phosphatase 45 U/L (39-117); Bilirubin,Direct < 0.2 mg/dL (0.0-0.3); Blood Urea Nitrogen 10 mg/dl (8-23); Gamma Glutamyl Transpeptidase 25 U/L (5-36); Magnesium 2.2 mg/dL (1.6-2.5); Uric Acid 2.2 mg/dL (2.5-8.0)
--- NOTE | 2017-03-17 08:42 | XRay Report ---
HISTORY: Reason for Exam:f/u pneumonia FINDINGS: Patient has a small to moderate size consolidating infiltrate behind the left heart border. There is also a tiny left-sided pleural effusion. This has become worse since 03/16/17. The right upper lobe infiltrate has nearly resolved. The remainder the lungs are clear. The heart size is within normal limits. IMPRESSION: Worsening infiltrate left lower lobe and resolving right upper lobe infiltrate Interpreted and Authenticated by: Shady Mazariegos 03/17/17
[2017-03-17] MEDS: METOPROLOL SUCCINATE 25 MG TAB.XL.24H PO SCH (09:06)
[2017-03-17] MEDS: BRIMONIDINE TARTRATE OD SCH (09:06)
--- NOTE | 2017-03-17 11:25 | Discharge Summary ---
Providers - Providers Patient information: Note initiated : 03/17/17 at 11:22 am Service Date, if different from initiated Date: [] Patient: Danni Dhillon 76 y/o F admitted on 03/09/17 for Colostomy Closure. Chief Complaint: [] Date of admission: 03/09/17 Discharge date: 03/17/17 Attending physician: Benita Oliver Hospitalization Hospital course: 76-year-old female who was admitted on 09 March after colonoscopy closure. She had an uneventful hospital stay except for development of right sided pneumonitis due to atelectasis and inactivity. This was treated with IV antibiotics and pulmonary toilet. She has gradually improved and now her lungs are essentially clear though she has a small amount of residual infiltrate on her chest x-ray. She did not have any difficulty relative to her colon re- anastomosis. She was having bowel movements on the third postoperative day and had rapid progression of her diet. Her DURAN drain has minimal fluid output and is removed on the day of discharge. She has short-term atrial fibrillation with fast ventricular response. This responded to digoxin and metoprolol. These will be continued for 1 month postdischarge and she will be referred to her primary physician. She has no other difficulties and is stable for discharge Discharge diagnosis: Colostomy status Secondary discharge diagnosis: Paroxysmal atrial fibrillation with rapid ventricular response acute pneumonitis right lung Hypertension Reason for admission: Colostomy closure Procedures: Colostomy closure Pertinent studies/significant findings: None Complications: Postoperative acute pneumonitis and atrial fibrillation with RVR Exam Temp Pulse Resp BP Pulse Ox 97.7 F 76 16 145/72 97 03/17/17 07:29 03/17/17 07:51 03/17/17 07:51 03/17/17 07:29 03/17/17 07:53 - General physical appearance well developed, well nourished, no distress, other (Patient is weak but otherwise is doing well) - Eyes PERRL, normal ocular movement - ENT normal pinna, normal nares, normal mucosa, no hearing loss, no congestion - Head Head exam IM: Present: atraumatic, normocephalic - Neck no masses, no bruits, trachea midline, no lymphadectomy, no venous distension - Cardiovascular Cardiovascular exam IM: Present: normal rate and rhythm - Respiratory normal expansion, normal respiratory effort, clear to percussion, other ( Decreased breath sounds right lung field with scattered rhonchi) - Abdomen Abdomen: Present: soft, tender, bowel sounds, surgical scars (Small amount of blood along incision otherwise healing uneventfully) Hernia: Present: none - Genitourinary Present: normal external genitalia - Integumentary Present: no rash, no growths, no abnormal pigmentation - Neurologic Present: normal coordination, normal sensation - Musculoskeletal Present: normal gait, normal posture - Psychiatric Present: oriented to time, oriented to person, oriented to place, speech is normal, memory intact Discharge Plan - Patient/Caregiver Discharge Instructions Activity: increase activity as tolerated Diet: Regular Diet Additional Instructions: Use INSpira care every hour while awake Regular diet as tolerated Amoxicillin 875 mg twice daily 7 days KCl 20 mEq twice daily 5 days Follow-up office visit on 29 March 2017 - Follow up Plan Disposition: Home, Self-Care Prognosis: Good Rehab Potential: Good I certify that the patient requires SNF services.: No Overall status at discharge: patient is not back to baseline Pending Studies Resuscitation Status Full Code Diet Regular Diet Start TueMar 15 Lunch Albuterol/Ipratropium (Duoneb) 3 ml NEB Q4HRT [facility] Last Admin: 03/17/17 07:00 Dose: 3 ml Admin: 03/17/17 03:42 Dose: 3 ml Admin: 03/16/17 23:17 Dose: 3 ml Admin: 03/16/17 19:50 Dose: 3 ml Admin: 03/16/17 16:06 Dose: 3 ml Admin: 03/16/17 11:05 Dose: 3 ml Admin: 03/16/17 07:02 Dose: 3 ml Admin: 03/16/17 03:02 Dose: 3 ml Admin: 03/15/17 23:04 Dose: 3 ml Admin: 03/15/17 18:49 Dose: Not Given Admin: 03/15/17 18:48 Dose: 3 ml Digoxin (Lanoxin) 250 mcg PO DAILY@1400 [facility] Last Admin: 03/16/17 14:12 Dose: 250 mcg Admin: 03/15/17 15:18 Dose: 250 mcg Piperacillin Sod/Tazobactam (Sod 3.375 gm/ Dextrose) 50 mls @ 100 mls/hr IV Q6H [facility] Last Infusion: 03/17/17 07:18 Dose: 100 mls/hr Admin: 03/17/17 05:33 Dose: 100 mls/hr Infusion: 03/17/17 00:45 Dose: 100 mls/hr Admin: 03/17/17 00:15 Dose: 100 mls/hr Infusion: 03/16/17 18:12 Dose: 100 mls/hr Admin: 03/16/17 17:42 Dose: 100 mls/hr Infusion: 03/16/17 13:23 Dose: 100 mls/hr Admin: 03/16/17 12:53 Dose: 100 mls/hr Infusion: 03/16/17 08:19 Dose: 0 mls/hr Admin: 03/16/17 05:34 Dose: 100 mls/hr Infusion: 03/16/17 00:30 Dose: 0 mls/hr Admin: 03/16/17 00:00 Dose: 100 mls/hr Infusion: 03/15/17 18:30 Dose: 0 mls/hr Admin: 03/15/17 17:53 Dose: 100 mls/hr Infusion: 03/15/17 15:24 Dose: 100 mls/hr Admin: 03/15/17 12:32 Dose: 100 mls/hr Levothyroxine Sodium (Synthroid) 112 mcg PO QAMAC [facility] Last Admin: 03/17/17 07:14 Dose: 112 mcg Admin: 03/16/17 08:17 Dose: 112 mcg Meperidine HCl (Demerol) 50 mg PO Q4HP PRN PRN Reason: Pain Last Admin: 03/15/17 21:11 Dose: 50 mg Admin: 03/15/17 15:16 Dose: 50 mg Metoprolol Succinate (Toprol Xl) 25 mg PO DAILY [facility] Last Admin: 03/17/17 09:06 Dose: 25 mg Admin: 03/16/17 08:17 Dose: 25 mg Pantoprazole Sodium (Protonix) 40 mg IV QAMAC [facility] Last Admin: 03/17/17 07:14 Dose: 40 mg Admin: 03/16/17 08:16 Dose: 40 mg Brimonidine Tartrate (Ophthalmic Solution) 1 dose OD BID [facility] Last Admin: 03/17/17 09:06 Dose: 1 dose Admin: 03/16/17 21:00 Dose: 1 dose Admin: 03/16/17 08:18 Dose: 1 dose Admin: 03/15/17 20:26 Dose: 1 dose Latanoprost 0.005% [ (Xalatan] Ophth Drops) 1 dose OS HS CONCEPCION Last Admin: 03/16/17 21:00 Dose: 1 dose Admin: 03/15/17 20:26 Dose: 1 dose Sodium Chloride (Saline Flush) 10 ml IV Q8 CONCEPCION Last Admin: 03/17/17 05:34 Dose: 10 ml Admin: 03/16/17 23:08 Dose: 10 ml Admin: 03/16/17 12:55 Dose: 10 ml Admin: 03/16/17 05:34 Dose: 10 ml Admin: 03/15/17 21:18 Dose: 10 ml Admin: 03/15/17 15:18 Dose: 10 ml Shift Summary 03/17/17 04:07 Shift Summary by David Ferguson up w/SBA and FWW, only needs assist w/IV pole, have ran NS at TKO after ABO at midnight d/t new IV start just prior to shift change and possible d/c home today per pt if "chest xray has improved again this morning according to the doctor", pt didn't want to take the chance of needing another IV start again, pt received k-rider yesterday for K+ of 3.0 that infused until midnight, pt developed PNA after surgery, received HHN tx Q6H, does have occ. productive cough, voiding per BR yellow urine and has had 3 small loose brown stools, wears a peripad but hasn't been incontinent thus far, refused SCDS tonight but is wearing knee high TEDS, DURAN 5ml SS output, poss. d/c of DURAN today according to the patient, alexandra and tegaderm to abdomen with min. drg noted, per dayshift RN this drg is ok w/Dr. and dsgs don't need to be changed, no prns given t/o shift, pt particular with cares but pleasant and cooperative with cares Initialized on 03/17/17 04:07 - END OF NOTE
== END 2017-03-17 13:00 | disposition home or self-care (01) | DRG 330 ==
LOC: MEDSUR 05:23 → ICU 14:50 → MEDSUR 03-16 11:55
PROVIDERS: ADMIT Family Medicine Adult Medicine; ATTEND Family Medicine Adult Medicine

== ENCOUNTER 2020-03-05 21:04 | Inpatient (IN) ==
--- NOTE | 2020-03-05 21:24 | Emergency Department Note ---
Abdominal Pain HPI General Chief Complaint: Abdominal Pain Stated Complaint: abdomina pain Time Seen by Provider: 03/05/20 21:27 Source: patient Mode of arrival: ambulatory Limitations: no limitations History of Present Illness HPI Narrative: Narrative: 79-year-old female presents with diffuse abdominal pain that has progressively gotten worse throughout the day. Started this morning but since about 6 PM tonight has been pretty miserable. States she has a history of bowel obstructions and believes she has one again. She was just generally uncomfortable for a long time and to the last 3 hours or so when the pain started getting much more severe. Is all over her entire abdomen but worse in the left lower quadrant. Has significant nausea but has not vomited. No diarrhea. Last normal bowel movement with this this morning but was small. Denies any diarrhea in the last several weeks. No fever or chills. No cough or cold symptoms. No recent travel. States she has had bowel resections and a colostomy reversed and has seen Dr. Oliver here in the past. Related Data Home Medications Medication Instructions Recorded Confirmed brimonidine 0.2 % eye drops 1 drp OD BID ml 02/07/17 02/04/20 latanoprost 0.005 % eye drops 1 drp OPHTHALMIC QDAY 06/07/17 02/04/20 diphenhydramine HCl 25 mg tablet 25 mg PO .COMPLEX PRN tab 03/02/18 02/04/20 pantoprazole 40 mg tablet,delayed 40 mg PO QDAY tab 03/28/18 02/04/20 release potassium chloride 10 mEq 10 meq PO .COMPLEX tab 03/28/18 02/04/20 tablet,extended release Previous Rx's Medication Instructions Recorded celecoxib 200 mg capsule 200 mg PO QDAY #90 cap 01/25/18 rivaroxaban 15 mg tablet 15 mg PO QDAY #90 tab 03/02/18 levothyroxine 112 mcg tablet 112 mcg PO DAILY #90 tab 04/25/18 polyethylene glycol 3350 17 9 g PO .q2day #238 g 05/31/18 gram/dose oral powder dicyclomine 20 mg tablet 20 mg PO QID #30 tab 10/12/18 ondansetron 4 mg SL Q4-6HP PRN #10 tab 12/24/18 ondansetron 4 mg SL Q4-6HP PRN #20 tab 11/13/19 oxycodone 5 mg PO Q4HP PRN #12 tab 11/13/19 Allergies Allergy/AdvReac Type Severity Reaction Status Date / Time hydrocodone AdvReac Severe Vomiting Verified 02/04/20 14:59 Erythromycin Base AdvReac Intermediate Rash Verified 02/04/20 14:59 acetaminophen [From Tylenol] AdvReac Mild Hallucinati Verified 02/04/20 14:59 ng ciprofloxacin AdvReac Mild Diarrhea Verified 02/04/20 14:59 Diclofenac AdvReac Mild Nausea Verified 02/04/20 14:59 doxycycline AdvReac Mild Nausea Verified 02/04/20 14:59 lansoprazole [From Prevacid] AdvReac Mild Confusion Verified 02/04/20 14:59 [id number] [From Align] AdvReac Unknown Diarrhea Verified 02/04/20 14:59 Review of Systems ROS ROS Narrative: Narrative: All systems ED: reviewed and negative except as stated. 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) Atrial fibrillation (Chronic) Hypertension, essential, benign (Chronic) Persistent hoarseness (Chronic) Anemia (Chronic) Constipation by delayed colonic transit (Chronic) Urinary frequency (Chronic) Sciatica of left side (Chronic) Traumatic hematoma of buttock (Acute) Fall from slip, trip, or stumble (Acute) Chronic cough (Chronic) Esophageal ring (Chronic) Gastritis (Chronic) Gastroesophageal reflux disease with esophagitis (Chronic) Allergic arthritis involving hand (Chronic) Hypothyroidism (Chronic) Urinary tract infection, recurrent (Chronic) Rhinitis, allergic (Chronic) Osteoarthritis (Chronic) Hyperlipidemia (Chronic) Degeneration of cervical intervertebral disc (Chronic) Medical History Abdominal pain (Resolved) Allergic arthritis involving hand (Chronic) Anemia (Resolved) Anemia (Resolved) Anemia (Chronic) Atrial fibrillation (Chronic) Bleeding (Resolved) Blepharitis (Resolved) Change in Voice (Resolved) Chest pain (Resolved) Cholecystitis (Resolved) Chronic adrenal insufficiency (Ruled-out) Chronic cough (Chronic) Community acquired pneumonia (Resolved) Complication of ostomy (Resolved) Constipation by delayed colonic transit (Chronic) Degeneration of cervical intervertebral disc (Chronic) DVT (deep venous thrombosis) (Resolved) Dysphagia (Resolved) Elevated troponin (Resolved) 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 - [facility] Enterocutaneous fistula (Resolved) the fistulas have healed but were never surgically addressed so that the site of the fistula origination is not known Esophageal ring (Chronic) Post dilation Fatigue (Resolved) Fecal impaction (Resolved) Gastritis (Chronic) Gastroenteritis (Resolved) Gastroesophageal reflux disease with esophagitis (Chronic) Hyperlipidemia (Chronic) Hypertension, essential, benign (Chronic) Hypotension (Resolved) Hypothyroidism (Chronic) 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) Nuclear sclerosis (Resolved) Osteoarthritis (Chronic) Perforated diverticulum of large intestine (Resolved) with sepsis, respiratory failure, ventilation, colostomy 2014, hospitalized for months, SNF for weeks post hospitalization Peritonitis (Resolved) Persistent hoarseness (Chronic) Pneumonitis (Resolved) Postmenopausal (Resolved) Protein calorie malnutrition (Resolved) Recurrent upper respiratory infection (URI) (Resolved) Rhinitis, allergic (Chronic) Sciatica of left side (Chronic) Seasonal allergies (Resolved) Severe sepsis (Resolved) Small bowel obstruction due to adhesions (Resolved) Syncope (Resolved) Syncope, cardiogenic (Resolved) Thrombus (Resolved) 05/08/2015 - [facility]: RUE nonocclusive thrombus secondary to PICC Line Urinary frequency (Chronic) Urinary tract infection, recurrent (Chronic) Jul 28 - VRE and pseudomonas Surgical History History of bladder repair surgery (Resolved) 1980-A & P repair 1990-Ovarian cyst, Bladder repair History of esophagogastroduodenoscopy (Resolved 01/30/16) 11/03/15 History of hysterectomy (Resolved) 1975 History of knee replacement (Resolved) 2008-right History of neck surgery (Resolved) 1999-neck fusion History of oophorectomy (Resolved) History of right knee joint replacement (Resolved) History of rotator cuff surgery (Resolved) 1998 Hx of arthroscopic knee surgery (Resolved) 2008. Meniscal tear and arthritis. Hx of cholecystectomy (Resolved) Hx of hysterectomy (Resolved) Hx of reduction mammoplasty (Resolved) 05/09/2009 Hx of reduction mammoplasty (Resolved) 1999 Hx of shoulder surgery (Resolved) 2001 Status post colostomy (Resolved) Status post colostomy takedown (Resolved) Status post Celina procedure (Chronic 02/27/15) Family History Unknown Malignant neoplasm of bone Primary malignant neoplasm of bone marrow Cardiac disease Hypertension Malignant neoplasm of lung Malignant neoplasm of pancreas Social History Smoking Status: Former smoker Exam Narrative Narrative: Narrative: General Limitations: no limitations General appearance: alert Head Head: atraumatic, normocephalic and normal inspection Eye Eye: Present normal appearance ENT ENT: Present mucous membranes moist Chest Chest: Present symmetric chest wall rise Respiratory Respiratory: Present normal lung sounds bilaterally; Absent respiratory distress, rales/crackles, wheezes, stridor and accessory muscle use Cardiovascular Cardiovascular: Present regular rate and normal heart sounds Adbominal Abdominal: Present soft, tenderness (difusue but worse LUQ and LLQ), guarding (LLQ) and hypoactive bowel sounds Extremities Extremities: Present normal inspection; Absent pedal edema Back Back: Absent CVA tenderness (R) and CVA tenderness (L) Neurological Neurological: Present alert and oriented X3 Psychiatric Psychiatric: Present normal affect and normal mood Skin Skin: Present warm, dry and intact; Absent normal color Course Course Course Narrative: At [address] Alaniz, supervising ER physician to assume care due to shift change. 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: Yes Clinical Impression: Abdominal pain Patient Disposition: Still a Patient Condition: Fair Follow up with: Julius Gunter MD [Primary Care Provider] - Prescriptions: No Action celecoxib 200 mg capsule 200 mg PO QDAY Qty: 90 RF: 1 levothyroxine 112 mcg tablet 112 mcg PO DAILY Qty: 90 RF: 3 latanoprost [Xalatan] 0.005 % drops 1 drp OPHTHALMIC QDAY RF: 0 diphenhydramine HCl [Benadryl Allergy] 25 mg tablet 25 mg PO .COMPLEX PRNRF: 0 rivaroxaban [Xarelto] 15 mg tablet 15 mg PO QDAY Qty: 90 RF: 3 polyethylene glycol 3350 [Miralax] 17 gram/dose powder 9 g PO .q2day Qty: 238 RF: 12 pantoprazole 40 mg tablet,delayed release (DR/EC) 40 mg PO QDAY RF: 0 potassium chloride 10 mEq tablet extended release 10 meq PO .COMPLEX RF: 0 dicyclomine 20 mg tablet 20 mg PO QID Qty: 30 RF: 3 brimonidine 0.2 % drops 1 drp OD BID RF: 0 ondansetron 4 MG tablet 4 mg SL Q4-6HP PRN (Reason: Nausea) Qty: 10 RF: 0 ondansetron 4 MG tablet 4 mg SL Q4-6HP PRN (Reason: nausea or vomiting) Qty: 20 RF: 0 oxycodone 5 MG tablet 5 mg PO Q4HP PRN (Reason: Pain) Qty: 12 RF: 0
[2020-03-05 21:46] LABS: POC Blood Urea Nitrogen 27 mg/dl (8-23); POC CO2 26 mmol/L (22-30); POC Calcium, Ionized 1.28 mmol/L (1.16-1.32); POC Chloride 105 mmol/L (96-108); POC Creatinine 1.2 mg/dl (0.6-1.1); POC Glucose, Random 125 mg/dL (70-105); POC Potassium 4.1 mmol/L (3.3-5.1); POC Sodium 143 mmol/L (133-145)
[2020-03-05 22:11] LABS: Basophils # (Auto) 0.04 K/mcL (0.00-0.30); Basophils % (Auto) 0.5 % (0.0-2.0); Eosinophils # (Auto) 0.12 K/mcL (0.00-0.70); Eosinophils % (Auto) 1.4 % (0.0-7.0); Granulocytes % (Auto) 75.8 % (38.0-78.0); Hematocrit 29.1 % (34.1-44.9); Hemoglobin 9.7 g/dL (11.2-15.7); Lymphocytes # (Auto) 1.17 K/mcL (1.50-4.80); Mean Corpuscular HGB Conc 33.3 g/dL (31.0-36.0); Mean Platelet Volume 9.7 fL (7.4-10.4); Monocytes # (Auto) 0.69 K/mcL (0.10-0.90); Monocytes % (Auto) 8.3 % (1.0-12.0); Platelet Count 312 K/mcL (140-440); RBC 3.03 M/mcL (3.59-5.38); WBC 8.3 K/mcL (4.50-11.00)
--- NOTE | 2020-03-05 22:20 | Emergency Department Note ---
Abdominal Pain HPI General Chief Complaint: Abdominal Pain Stated Complaint: abdomina pain Time Seen by Provider: 03/05/20 21:27 Source: patient Mode of arrival: ambulatory Limitations: no limitations History of Present Illness HPI Narrative: Narrative: This 79-year-old female patient is checked out to me at shift change by Jacinda HUNETR. I agree with her evaluation management documentation. Patient has a history of small bowel obstructions and comes in for worsening pain tonight since 6 PM. Feels like previous bowel obstruction Related Data Home Medications Medication Instructions Recorded Confirmed brimonidine 0.2 % eye drops 1 drp OD BID ml 02/07/17 03/05/20 latanoprost 0.005 % eye drops 1 drp OPHTHALMIC QDAY 06/07/17 03/05/20 potassium chloride 10 mEq 10 meq PO .COMPLEX tab 03/28/18 03/05/20 tablet,extended release ipratropium bromide 1 spray INTRANASAL DAILY 03/05/20 03/05/20 promethazine 25 mg PO Q6H PRN 03/05/20 03/05/20 Previous Rx's Medication Instructions Recorded celecoxib 200 mg capsule 200 mg PO QDAY #90 cap 01/25/18 rivaroxaban 15 mg tablet 15 mg PO QDAY #90 tab 03/02/18 levothyroxine 112 mcg tablet 112 mcg PO DAILY #90 tab 04/25/18 dicyclomine 20 mg tablet 20 mg PO QID #30 tab 10/12/18 Allergies Allergy/AdvReac Type Severity Reaction Status Date / Time hydrocodone AdvReac Severe Vomiting Verified 02/04/20 14:59 Erythromycin Base AdvReac Intermediate Rash Verified 02/04/20 14:59 acetaminophen [From Tylenol] AdvReac Mild Hallucinati Verified 02/04/20 14:59 ng ciprofloxacin AdvReac Mild Diarrhea Verified 02/04/20 14:59 Diclofenac AdvReac Mild Nausea Verified 02/04/20 14:59 doxycycline AdvReac Mild Nausea Verified 02/04/20 14:59 lansoprazole [From Prevacid] AdvReac Mild Confusion Verified 02/04/20 14:59 [id number] [From Align] AdvReac Unknown Diarrhea Verified 02/04/20 14:59 Review of Systems ROS ROS Narrative: Narrative: PFSH Narrative Patient History Narrative: Narrative: Medical/Surgical/Family History All Active Problems (Updated 03/05/20 @ 22:19 by Cem Alaniz MD) Partial obstruction of small intestine (Acute) skilled nursing current use of anticoagulant therapy (Chronic) Atrial fibrillation (Chronic) Hypertension, essential, benign (Chronic) Persistent hoarseness (Chronic) Anemia (Chronic) Constipation by delayed colonic transit (Chronic) Urinary frequency (Chronic) Sciatica of left side (Chronic) Traumatic hematoma of buttock (Acute) Fall from slip, trip, or stumble (Acute) Chronic cough (Chronic) Esophageal ring (Chronic) Gastritis (Chronic) Gastroesophageal reflux disease with esophagitis (Chronic) Allergic arthritis involving hand (Chronic) Hypothyroidism (Chronic) Urinary tract infection, recurrent (Chronic) Rhinitis, allergic (Chronic) Osteoarthritis (Chronic) Hyperlipidemia (Chronic) Degeneration of cervical intervertebral disc (Chronic) Medical History Abdominal pain (Resolved) Allergic arthritis involving hand (Chronic) Anemia (Resolved) Anemia (Resolved) Anemia (Chronic) Atrial fibrillation (Chronic) Bleeding (Resolved) Blepharitis (Resolved) Change in Voice (Resolved) Chest pain (Resolved) Cholecystitis (Resolved) Chronic adrenal insufficiency (Ruled-out) Chronic cough (Chronic) Community acquired pneumonia (Resolved) Complication of ostomy (Resolved) Constipation by delayed colonic transit (Chronic) Degeneration of cervical intervertebral disc (Chronic) DVT (deep venous thrombosis) (Resolved) Dysphagia (Resolved) Elevated troponin (Resolved) 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) Nuclear sclerosis (Resolved) Osteoarthritis (Chronic) Perforated diverticulum of large intestine (Resolved) with sepsis, respiratory failure, ventilation, colostomy 2014, hospitalized for months, SNF for weeks post hospitalization Peritonitis (Resolved) Persistent hoarseness (Chronic) Pneumonitis (Resolved) Postmenopausal (Resolved) Protein calorie malnutrition (Resolved) Recurrent upper respiratory infection (URI) (Resolved) Rhinitis, allergic (Chronic) Sciatica of left side (Chronic) Seasonal allergies (Resolved) Severe sepsis (Resolved) Small bowel obstruction due to adhesions (Resolved) Syncope (Resolved) Syncope, cardiogenic (Resolved) Thrombus (Resolved) 05/08/2015 - [facility]: RUE nonocclusive thrombus secondary to PICC Line Urinary frequency (Chronic) Urinary tract infection, recurrent (Chronic) Jul 28 - VRE and pseudomonas Surgical History History of bladder repair surgery (Resolved) 1980-A & P repair 1990-Ovarian cyst, Bladder repair History of esophagogastroduodenoscopy (Resolved 01/30/16) 11/03/15 History of hysterectomy (Resolved) 1975 History of knee replacement (Resolved) 2008-right History of neck surgery (Resolved) 1999-neck fusion History of oophorectomy (Resolved) History of right knee joint replacement (Resolved) History of rotator cuff surgery (Resolved) 1998 Hx of arthroscopic knee surgery (Resolved) 2008. Meniscal tear and arthritis. Hx of cholecystectomy (Resolved) Hx of hysterectomy (Resolved) Hx of reduction mammoplasty (Resolved) 05/09/2009 Hx of reduction mammoplasty (Resolved) 1999 Hx of shoulder surgery (Resolved) 2001 Status post colostomy (Resolved) Status post colostomy takedown (Resolved) Status post Celina procedure (Chronic 02/27/15) Family History Unknown Malignant neoplasm of bone Primary malignant neoplasm of bone marrow Cardiac disease Hypertension Malignant neoplasm of lung Malignant neoplasm of pancreas Social History Smoking Status: Former smoker Exam Narrative Narrative: Narrative: General Limitations: no limitations General appearance: alert Course Vital Signs Vital signs: Vital Signs Temperature 97.6 F 03/05/20 21:06 Pulse Rate 77 03/05/20 21:06 Respiratory Rate 17 03/05/20 21:06 Blood Pressure 125/80 03/05/20 21:06 Pulse Oximetry (%) 100 03/05/20 21:06 Temperature 97.6 F 03/05/20 21:06 Pulse Rate 60 03/05/20 23:01 Respiratory Rate 17 03/05/20 21:06 Blood Pressure 98/50 03/05/20 23:01 Pulse Oximetry (%) 95 03/05/20 23:01 MDM MDM Narrative Medical decision making narrative: Narrative: After reviewing Jacinda Dejesus's notes I assumed care of the patient. X-ray of the abdomen shows nonspecific findings that could be consistent with partial small bowel obstruction. Patient refused nasogastric tube but was complaining of some nausea. Zofran is ordered along with Dilaudid for pain medicine After labs came back I discussed the results with the patient and Dr. Oliver, general surgeon. He agreed to accept the patient for further care and evaluation in the hospital. I will write transition orders for her tonight Lab Data Lab results reviewed: Yes I reviewed the patient's lab results. Result diagrams: 03/05/20 21:34 03/05/20 21:34 Labs: Lab Results 03/05/20 03/05/20 Range/Units 21:34 21:34 WBC 8.3 (4.50-11.00) K/mcL RBC 3.03 L (3.59-5.38) M/mcL Hgb 9.7 L (11.2-15.7) g/dL Hct 29.1 L (34.1-44.9) % POC Hct 32.0 L (36.0-48.0) % MCV 96.0 (80.0-100.0) fL MCH 32.0 (26.0-34.0) pg MCHC 33.3 (31.0-36.0) g/dL RDW 20.0 H (11.5-14.5) % Plt Count 312 (140-440) K/mcL MPV 9.7 (7.4-10.4) fL Gran % 75.8 (38.0-78.0) % Lymph % (Auto) 14.0 L (15.5-49.0) % [place] % (Auto) 8.3 (1.0-12.0) % Eos % (Auto) 1.4 (0.0-7.0) % Baso % (Auto) 0.5 (0.0-2.0) % Gran # 6.32 (1.80-8.00) K/mcL Lymph # (Auto) 1.17 L (1.50-4.80) K/mcL [place] # (Auto) 0.69 (0.10-0.90) K/mcL Eos # (Auto) 0.12 (0.00-0.70) K/mcL Baso # (Auto) 0.04 (0.00-0.30) K/mcL POC Sodium 143 (133-145) mmol/L Sodium 143 (133-145) mmol/L POC Potassium 4.1 (3.3-5.1) mmol/L Potassium 4.2 (3.3-5.1) mmol/L POC Chloride 105 (96-108) mmol/L Chloride 106 (96-108) mmol/L Carbon Dioxide 26 (22-30) mmol/L POC Total CO2 26 (22-30) mmol/L Anion Gap 11.0 (8-16) POC BUN 27 H (8-23) mg/dl BUN 26 H (8-23) mg/dl Creatinine 1.2 H (0.6-1.1) mg/dl POC Creatinine 1.2 H (0.6-1.1) mg/dl GFR Calculation 43 Glucose 127 H (70-105) mg/dL POC Glucose 125 H (70-105) mg/dL Calcium 9.3 (8.6-10.4) mg/dl POC WB Ioniz Calcium 1.28 (1.16-1.32) mmol/L Total Bilirubin 0.4 (0.0-1.0) mg/dL AST 26 (0-37) U/l ALT 18 (0-40) U/l Alkaline Phosphatase 53 (39-117) U/L Total Protein 6.3 (5.9-8.4) gm/dL Albumin 4.4 (3.2-5.2) gm/dL Globulin 1.9 L (2.2-3.7) gm/dL Albumin/Globulin Ratio 2.3 (1.0-2.3) Lipase 36 (7-60) U/L Radiology Data Radiology results reviewed: Yes I reviewed the patient's radiology results. Radiology results narrative: X-ray shows several loops of dilated small bowel with air-fluid levels as well as copious stool-could be consistent with small bowel obstruction Discharge Plan Patient/Caregiver Discharge Instructions Pt seen by ELECTRIC ORGAN INSPECTOR AND REPAIRER/PA only: No Clinical Impression: Partial obstruction of small intestine Patient Disposition: Xfer As Outpt/Obs ([facility]) Condition: Fair Follow up with: Julius Gunter MD [Primary Care Provider] - Benita Oliver MD [Physician] - Prescriptions: No Action celecoxib 200 mg capsule 200 mg PO QDAY Qty: 90 RF: 1 levothyroxine 112 mcg tablet 112 mcg PO DAILY Qty: 90 RF: 3 latanoprost [Xalatan] 0.005 % drops 1 drp OPHTHALMIC QDAY RF: 0 rivaroxaban [Xarelto] 15 mg tablet 15 mg PO QDAY Qty: 90 RF: 3 potassium chloride 10 mEq tablet extended release 10 meq PO .COMPLEX RF: 0 dicyclomine 20 mg tablet 20 mg PO QID Qty: 30 RF: 3 brimonidine 0.2 % drops 1 drp OD BID RF: 0 promethazine 25 mg Tablet 25 mg PO Q6H PRN (Reason: Nausea And Vomiting) RF: 0 ipratropium bromide 0.03 % [place],Non-Aerosol 1 spray INTRANASAL DAILY RF: 0
[2020-03-05 22:33] LABS: ALT/SGPT 18 U/l (0-40); AST/SGOT 26 U/l (0-37); Albumin 4.4 gm/dL (3.2-5.2); Albumin/Globulin Ratio 2.3 (1.0-2.3); Alkaline Phosphatase 53 U/L (39-117); Bilirubin,Total 0.4 mg/dL (0.0-1.0); Blood Urea Nitrogen 26 mg/dl (8-23); Calcium 9.3 mg/dl (8.6-10.4); Carbon Dioxide 26 mmol/L (22-30); Chloride 106 mmol/L (96-108); Globulin 1.9 gm/dL (2.2-3.7); Glomerular Filtration Rate 43; Glucose 127 mg/dL (70-105)
[2020-03-05] MEDS ORDERED: HYDROmorphone 0.5 MG/0.5 ML SYRINGE IV PRN (23:09)
[2020-03-05] MEDS ORDERED: ONDANSETRON 4 MG/2 ML VIAL IV ONE (23:09)
[2020-03-05] MEDS ORDERED: NALOXONE HCL 0.4 MG/ML VIAL IV PRN (23:25)
[2020-03-05] MEDS ORDERED: ACETAMINOPHEN 325 MG TABLET PO PRN (23:25)
[2020-03-05 23:38] LABS: Appearance,Urine CLEAR; Bilirubin,Urine NEG (NEG); Color,Urine YELLOW; Culture Indicated,Urine NO; Glucose,Urine (UA) NEGATIVE (NEG); Ketones,Urine NEG (NEG); Leukocyte Esterase,Urine NEG /uL (NEG); Nitrate,Urine NEG (NEG); Protein,Urine NEG (NEG); Specific Gravity,Urine 1.017 (1.000-1.035); Urine Blood NEG mg/dL (<0.03); Urobilinogen,Urine NEG (NEG)
[2020-03-05] MEDS: 0.9 % SODIUM CHLORIDE 1,000 ML IV SCH (23:55)
--- NOTE | 2020-03-06 05:57 | XRay Report ---
INDICATION: abdominal pain, distention TECHNIQUE: Supine and upright abdomen. COMPARISON: Previous examination dated 12/24/2018 FINDINGS:Multiple surgical clips in the pelvis. There is gas and fecal material within the colon. No dilated gas-filled small bowel. Bowel gas pattern is nonspecific and nonobstructive. There is no pneumoperitoneum. No biliary or portal venous gas. There is no pneumatosis. Incidental note is made of severe multilevel degenerative disc disease in the lumbar spine. There is mild degenerative joint disease in both hips. IMPRESSION: 1. Nonspecific and nonobstructive bowel gas pattern 2. No focal abnormality Interpreted and Authenticated by: Terence Quick 03/06/20
[2020-03-06] MEDS: 0.9 % SODIUM CHLORIDE 1,000 ML IV SCH (11:50)
[2020-03-06] MEDS ORDERED: ACETAMINOPHEN 650 MG/65 ML BOTTLE IV PRN (12:30)
[2020-03-06] MEDS: DICYCLOMINE 20 MG TABLET PO SCH ×3 (14:18→21:53)
[2020-03-06] MEDS: SIMETHICONE 80 MG TAB.CHEW CHEWED SCH ×3 (14:19→21:53)
[2020-03-06] MEDS: ONDANSETRON 4 MG/2 ML VIAL IV PRN (19:10)
--- NOTE | 2020-03-06 19:18 | General Surg History&Physical ---
HPI History of Present Illness Patient information: Note initiated : 03/06/20 at 7:17 pm Service Date, if different from initiated Date: [] Patient: Danni Dhillon a 79 y/o F admitted on 03/06/20 for abdominal pain. Chief Complaint: [] Chief complaint: crampy abdominal pain with nausea History of present illness: Ms. Dhillon is a 79 year old F with a 24-hour history of diffuse abdominal pain. The pain has become more severe throughout the day. She has a history of partial intestinal obstruction. Pain is worse on the lef t side and primarily in the left lower quadrant. She had nausea but no vomiting. She did have a small bowel movement earlier today. Patient has a history of multiple intestinal operation with bowel resection and colostomy with colostomy closure. She also had an enterocutaneous fistula which closed primarily. Abdominal x-rays suggest partial intestinal obstruction and she is admitted for treatment. Constitutional Constitutional: Present fatigue, headache(s), lethargy, malaise, weakness and weight loss EENT Eyes: Absent change in vision and loss of vision Ears: Present decreased hearing; Absent ear discharge and tinnitus Nose, mouth and throat: Present abnormal hearing, disequilibrium, dry mouth and headache(s) Cardiovascular Cardiovascular: Absent chest pain, dyspnea on exertion, leg edema, lightheadedness, paroxysmal nocturnal dyspnea, pedal edema, rapid heart rate and syncope Respiratory Respiratory: Absent cough, dyspnea, wheezing, snoring and pain with cough Gastrointestinal Gastrointestinal: Present abdominal pain, belching, change in bowel habits, constipation, cramping, heartburn, nausea and vomiting; Absent melena Genitourinary Genitourinary: Present urinary incontinence Musculoskeletal Musculoskeletal: Present arthralgias, muscle cramps, myalgias and neck pain Integumentary Integumentary: Absent pruritus and swelling Neurological Neurological: Present abnormal gait, abnormal hearing, headache(s), memory loss, tremor(s) and weakness; Absent convulsions and dizziness Psychiatric Psychiatric: Present abnormal sleep pattern and depression Hematologic/Lymphatic Hematologic/Lymphatic: Present other (patient is on chronic anti- coagulant therapy); Absent easy bleeding, easy bruising and lymphadenopathy Allergic/Immunologic Allergic/Immunologic: Absent tongue swelling, throat swelling, uticaria, wheezing and lip swelling [facility] Medical History Abdominal pain (Resolved) Allergic arthritis involving hand (Chronic) Anemia (Resolved) Anemia (Resolved) Anemia (Chronic) Atrial fibrillation (Chronic) Bleeding (Resolved) Blepharitis (Resolved) Change in Voice (Resolved) Chest pain (Resolved) Cholecystitis (Resolved) Chronic adrenal insufficiency (Ruled-out) Chronic cough (Chronic) Community acquired pneumonia (Resolved) Complication of ostomy (Resolved) Constipation by delayed colonic transit (Chronic) advanced to full liquid diet Milk of magnesia 30 cc every 4 hours 3 Repeat abdominal x-rays in the morning Degeneration of cervical intervertebral disc (Chronic) DVT (deep venous thrombosis) (Resolved) Dysphagia (Resolved) Elevated troponin (Resolved) 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 - [facility] Enterocutaneous fistula (Resolved) the fistulas have healed but were never surgically addressed so that the site of the fistula origination is not known Esophageal ring (Chronic) Post dilation Fatigue (Resolved) Fecal impaction (Resolved) Gastritis (Chronic) Gastroenteritis (Resolved) Gastroesophageal reflux disease with esophagitis (Chronic) Hyperlipidemia (Chronic) Hypertension, essential, benign (Chronic) add oral medications as needed Hypotension (Resolved) 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) Nuclear sclerosis (Resolved) Osteoarthritis (Chronic) Perforated diverticulum of large intestine (Resolved) with sepsis, respiratory failure, ventilation, colostomy 2014, hospitalized for months, SNF for weeks post hospitalization Peritonitis (Resolved) Persistent hoarseness (Chronic) Pneumonitis (Resolved) Postmenopausal (Resolved) Protein calorie malnutrition (Resolved) Recurrent upper respiratory infection (URI) (Resolved) Rhinitis, allergic (Chronic) Sciatica of left side (Chronic) Seasonal allergies (Resolved) Severe sepsis (Resolved) Small bowel obstruction due to adhesions (Resolved) Syncope (Resolved) Syncope, cardiogenic (Resolved) Thrombus (Resolved) 05/08/2015 - [facility]: RUE nonocclusive thrombus secondary to PICC Line Urinary frequency (Chronic) Urinary tract infection, recurrent (Chronic) Jul 28 - VRE and pseudomonas Surgical History History of bladder repair surgery (Resolved) 1980-A & P repair 1990-Ovarian cyst, Bladder repair History of esophagogastroduodenoscopy (Resolved 01/30/16) 11/03/15 History of hysterectomy (Resolved) 1975 History of knee replacement (Resolved) 2008-right History of neck surgery (Resolved) 1999-neck fusion History of oophorectomy (Resolved) History of right knee joint replacement (Resolved) History of rotator cuff surgery (Resolved) 1998 Hx of arthroscopic knee surgery (Resolved) 2008. Meniscal tear and arthritis. Hx of cholecystectomy (Resolved) Hx of hysterectomy (Resolved) Hx of reduction mammoplasty (Resolved) 05/09/2009 Hx of reduction mammoplasty (Resolved) 1999 Hx of shoulder surgery (Resolved) 2001 Status post colostomy (Resolved) Status post colostomy takedown (Resolved) Status post Celina procedure (Chronic 02/27/15) Family History Unknown Malignant neoplasm of bone Primary malignant neoplasm of bone marrow Cardiac disease Hypertension Malignant neoplasm of lung Malignant neoplasm of pancreas Social History smoking status: Former smoker MEDS/ALLERGIES Home Medications and Allergies Home Medications Medication Instructions Recorded Confirmed Type brimonidine 0.2 % eye drops 1 drp OD BID ml 02/07/17 03/06/20 History latanoprost 0.005 % eye drops 1 drp OPHTHALMIC QDAY 06/07/17 03/06/20 History celecoxib 200 mg capsule 200 mg PO QDAY #90 cap 01/25/18 03/06/20 Rx rivaroxaban 15 mg tablet 15 mg PO QDAY #90 tab 03/02/18 03/06/20 Rx potassium chloride 10 mEq 10 meq PO .COMPLEX tab 03/28/18 03/06/20 History tablet,extended release levothyroxine 112 mcg tablet 112 mcg PO DAILY #90 tab 04/25/18 03/06/20 Rx ipratropium bromide 1 spray INTRANASAL PRN PRN 03/05/20 03/06/20 History promethazine 25 mg PO Q6H PRN 03/05/20 03/06/20 History biotin 5,000 mcg SUBLINGUAL QDAY 03/06/20 03/06/20 History cetirizine [Aller-Dorene] 10 mg PO QDAY 03/06/20 03/06/20 History dicyclomine 20 mg PO PRN PRN 03/06/20 03/06/20 History magnesium oxide 400 mg PO QDAY 03/06/20 03/06/20 History polyethylene glycol 3350 [Miralax] See Rx Instructions .ROUTE .COMPLEX 03/06/20 03/06/20 History dicyclomine 20 mg PO QID #60 tab 03/09/20 Rx Allergies Allergy/AdvReac Type Severity Reaction Status Date / Time acetaminophen [From Tylenol] AdvReac Intermediate Hallucinati Verified 03/09/20 08:18 ng ciprofloxacin AdvReac Mild Diarrhea Verified 03/06/20 01:12 Diclofenac AdvReac Mild Nausea Verified 03/06/20 01:12 doxycycline AdvReac Mild Nausea Verified 03/06/20 01:12 Erythromycin Base AdvReac Mild Rash Verified 03/09/20 08:18 [id number] [From Align] AdvReac Mild Diarrhea Verified 03/09/20 08:18 hydrocodone AdvReac Mild Vomiting Verified 03/09/20 08:18 lansoprazole [From Prevacid] AdvReac Mild Confusion Verified 03/06/20 01:12 Physical Examination Vital Signs Vital signs: Temp Pulse Resp BP Pulse Ox 98.0 F 55 L 16 113/58 93 03/06/20 16:00 03/06/20 16:00 03/06/20 16:00 03/06/20 16:00 03/06/20 16:00 General physical appearance General physical exam: well developed, well nourished, no distress, no pain and chronically ill Eyes Eye exam: PERRL, normal ocular movement and pale ENT ENT exam: normal pinna, normal nares, normal mucosa, no hearing loss, no congestion and decreased hearing Head Head exam IM: Present atraumatic, normal inspection and normocephalic Cardiovascular Cardiovascular exam IM: Present normal rate and rhythm, RRR, +S1, +S2 and systolic murmur; Absent gallop and JVD Respiratory Respiratory exam: normal expansion, normal respiratory effort, clear to percussion and clear to auscultation Abdomen Abdomen: Present soft, tender (mild midabdominal tenderness), bowel sounds (good active bowel sounds) and surgical scars; Absent organomegaly, wound, masses, guarding, rigid, rebound and distended Integumentary Integumentary: Present no rash, no growths and no abnormal pigmentation Neurologic Neurologic: Present normal coordination and normal sensation Musculoskeletal Musculoskeletal: Present normal gait, normal posture and other Psychiatric Psychiatric: Present oriented to time, oriented to person, oriented to place, speech is normal and memory intact Results Labs Result diagrams: 03/05/20 21:34 03/09/20 05:00 Labs: Abnormal lab results 03/05/20 03/05/20 Range/Units 21:34 21:34 RBC 3.03 L (3.59-5.38) M/mcL Hgb 9.7 L (11.2-15.7) g/dL Hct 29.1 L (34.1-44.9) % POC Hct 32.0 L (36.0-48.0) % RDW 20.0 H (11.5-14.5) % Lymph % (Auto) 14.0 L (15.5-49.0) % Lymph # (Auto) 1.17 L (1.50-4.80) K/mcL POC BUN 27 H (8-23) mg/dl BUN 26 H (8-23) mg/dl Creatinine 1.2 H (0.6-1.1) mg/dl POC Creatinine 1.2 H (0.6-1.1) mg/dl Glucose 127 H (70-105) mg/dL POC Glucose 125 H (70-105) mg/dL Globulin 1.9 L (2.2-3.7) gm/dL Diabetes panel 03/05/20 Range/Units 21:34 Sodium 143 (133-145) mmol/L Potassium 4.2 (3.3-5.1) mmol/L Chloride 106 (96-108) mmol/L Carbon Dioxide 26 (22-30) mmol/L BUN 26 H (8-23) mg/dl Creatinine 1.2 H (0.6-1.1) mg/dl Glucose 127 H (70-105) mg/dL Calcium 9.3 (8.6-10.4) mg/dl AST 26 (0-37) U/l ALT 18 (0-40) U/l Alkaline Phosphatase 53 (39-117) U/L Total Protein 6.3 (5.9-8.4) gm/dL Albumin 4.4 (3.2-5.2) gm/dL Calcium panel 03/05/20 Range/Units 21:34 Calcium 9.3 (8.6-10.4) mg/dl Albumin 4.4 (3.2-5.2) gm/dL Pituitary panel 03/05/20 Range/Units 21:34 Sodium 143 (133-145) mmol/L Potassium 4.2 (3.3-5.1) mmol/L Chloride 106 (96-108) mmol/L Carbon Dioxide 26 (22-30) mmol/L BUN 26 H (8-23) mg/dl Creatinine 1.2 H (0.6-1.1) mg/dl Glucose 127 H (70-105) mg/dL Calcium 9.3 (8.6-10.4) mg/dl Adrenal panel 03/05/20 Range/Units 21:34 Sodium 143 (133-145) mmol/L Potassium 4.2 (3.3-5.1) mmol/L Chloride 106 (96-108) mmol/L Carbon Dioxide 26 (22-30) mmol/L BUN 26 H (8-23) mg/dl Creatinine 1.2 H (0.6-1.1) mg/dl Glucose 127 H (70-105) mg/dL Calcium 9.3 (8.6-10.4) mg/dl Total Bilirubin 0.4 (0.0-1.0) mg/dL AST 26 (0-37) U/l ALT 18 (0-40) U/l Alkaline Phosphatase 53 (39-117) U/L Total Protein 6.3 (5.9-8.4) gm/dL Albumin 4.4 (3.2-5.2) gm/dL All other labs normal. A/P Assessment and plan (1) Partial obstruction of small intestine: Status: Acute Comment: nothing by mouth except for ice chips and popsicles Metoclopramide 10 mg IV every 6 hours Promethazine 25 mg IV every 4 hours when necessary nausea Follow-up abdominal x-rays in the morning (2) Constipation by delayed colonic transit: Status: Chronic Comment: if patient shows progression of gas in her colon will start on MiraLAX and probably give milk of magnesia to facilitate bowel movement (3) Atrial fibrillation: Status: Chronic Comment: will restart anticoagulant therapy as soon as possible (4) Hypertension, essential, benign: Status: Chronic Comment: add oral medications as needed Time Spent With Patient Time: Total time spent is greater than 50% in coordination of care (as documented) at patient's floor/unit and/or counseling patient:
[2020-03-06] MEDS ORDERED: METOCLOPRAMIDE 10 MG/2 ML VIAL IV ONE (20:00)
[2020-03-06] MEDS ORDERED: METOCLOPRAMIDE 10 MG/2 ML VIAL ONE (20:07)
[2020-03-06] MEDS: POLYETHYLENE GLYCOL 3350 17 GM PACKET PO SCH (21:53)
[2020-03-06] MEDS: PROMETHAZINE 25 MG/ML VIAL IV PRN (22:35)
[2020-03-07] MEDS: METOCLOPRAMIDE 10 MG/2 ML VIAL IV SCH ×5 (00:39→23:50)
[2020-03-07] MEDS: 0.9 % SODIUM CHLORIDE 1,000 ML IV SCH ×2 (00:39→13:15)
[2020-03-07] MEDS: ONDANSETRON 4 MG/2 ML VIAL IV PRN ×3 (00:46→18:59)
[2020-03-07] MEDS: POLYETHYLENE GLYCOL 3350 17 GM PACKET PO SCH ×3 (00:55→10:57)
[2020-03-07] MEDS: PROMETHAZINE 25 MG/ML VIAL IV PRN ×3 (03:29→11:45)
--- NOTE | 2020-03-07 07:13 | XRay Report ---
INDICATION: FOR F/U OF ILEUS TECHNIQUE: Supine and upright abdomen. COMPARISON: Previous examination dated 03/05/2020 and 12/24/2018 FINDINGS:Gas and fecal material within the colon. There is prominent gas filled small bowel, especially in the left upper quadrant. This measures approximately 2.5 to 3 cm in diameter. There are scattered small bowel air-fluid levels. Mild small bowel dilatation is worse than on 03/05/2020. This may be secondary to ileus or developing obstruction. Continued follow-up recommended. There is no pneumoperitoneum. No biliary or portal venous gas. There is no pneumatosis. IMPRESSION: 1. Mildly prominent gas-filled small bowel with air-fluid levels 2. Findings may represent ileus or developing obstruction. Follow-up recommended Interpreted and Authenticated by: Terence Quick 03/07/20
[2020-03-07] MEDS: DICYCLOMINE 20 MG TABLET PO SCH ×4 (08:22→21:00)
[2020-03-07] MEDS: HYDROmorphone 1 MG/ML SYRINGE IV PRN ×3 (08:23→18:59)
[2020-03-07] MEDS: SIMETHICONE 80 MG TAB.CHEW CHEWED SCH ×4 (08:29→21:00)
--- NOTE | 2020-03-07 18:53 | General Surgery Progress Note ---
SUBJECTIVE Subjective Patient information: Note initiated : 03/07/20 at 6:52 pm Service Date, if different from initiated Date: [] Patient: Danni Dhillon 79 y/o F admitted on 03/06/20 for abdominal pain. Chief Complaint: [] Principal diagnosis: adynamic ileus; partial intestinal obstruction Interval history: patient states that she is not feeling better however according to the nurses she has refused to take most of the things that have been offered to her. I discussed with her that unless she allows the medicines to be given that she does not want to get better. I still feel strongly that she can get over the adynamic ileus. She cooperates in her treatment. She states that she will make a To be more cooperative in her care. Her status is primarily unchanged from yesterday Constitutional Vitals: Vital Signs Temp Pulse Resp BP Pulse Ox 99.8 F H 63 14 134/60 95 03/07/20 18:48 03/07/20 18:48 03/07/20 18:48 03/07/20 18:48 03/07/20 18:48 Period Temp Pulse Resp BP Sys/Bang Pulse Ox Last 24 Hr 97.9 F-99.8 F 59-68 14-18 102-137/47-63 91-98 Intake and Output 03/07/20 03/07/20 03/07/20 05:59 13:59 21:59 Intake Total 1290 1000 Output Total 900 425 400 Balance 390 575 -400 Weight 160 lb 7 oz Patient Weight 03/08/20 05:59 Weight 160 lb 7 oz Intake & Output: Intake & Output 03/07/20 03/07/20 03/07/20 05:59 13:59 21:59 Intake Total 1290 1000 Output Total 900 425 400 Balance 390 575 -400 Weight 160 lb 7 oz Intake: IV 1000 1000 Sodium Chloride 0.9% 1,000 ml @ 1000 1000 84 mls/hr IV .[id number] [facility] Rx#: [id number] Oral 290 Output: Void Amount 725 425 400 Emesis 175 Other: Urine Appearance Clear Clear Urine Color Pale Pale Head Head exam: Present atraumatic, normal inspection and normocephalic Eye Eye exam: Present EOMI, normal appearance and PERRL Pupils: Present normal accommodation and PERRL ENT ENT exam: Present mucous membranes moist, normal exam and normal oropharynx Neck Neck exam: Present full ROM; Absent tenderness and thyromegaly Respiratory Respiratory exam: Present CTAB; Absent rales, rhonchi and wheezes Cardiovascular Cardiovascular exam: Present normal rate and rhythm, gallop, +S1 and +S2; Absent JVD GI/Abdominal GI/Abdominal exam: Present diminished bowel sounds, distended and tenderness; Absent hernia and mass Extremities Exam Extremities exam: Present full ROM; Absent pedal edema and tenderness Back Exam Back exam: Present full ROM; Absent normal inspection Neurological Exam Neurological exam: Present CN II-XII intact, normal gait, oriented X3 and reflexes normal; Absent motor sensory deficit Psychiatric Psychiatric exam: Present agitated, depressed and flat affect Skin Skin exam: Absent cyanosis, pallor and rash A/P Assessment and plan (1) Partial obstruction of small intestine: Status: Acute Comment: nothing by mouth except for ice chips and popsicles (2) Constipation by delayed colonic transit: Status: Chronic Comment: if patient shows progression of gas in her colon will start on MiraLAX and probably give milk of magnesia to facilitate bowel movement (3) Hypertension, essential, benign: Status: Chronic Comment: add oral medications as needed (4) half-way current use of anticoagulant therapy: Status: Chronic (5) Atrial fibrillation: Status: Chronic Comment: will restart anticoagulant therapy as soon as possible Time Spent With Patient Time: Total time spent is greater than 50% in coordination of care (as documented) at patient's floor/unit and/or counseling patient:
[2020-03-08] MEDS: 0.9 % SODIUM CHLORIDE 1,000 ML IV SCH ×2 (01:16→11:56)
[2020-03-08] MEDS: METOCLOPRAMIDE 10 MG/2 ML VIAL IV SCH ×4 (05:26→23:19)
[2020-03-08] MEDS: PANTOPRAZOLE 40 MG VIAL IV SCH ×2 (06:55→16:43)
[2020-03-08 07:24] LABS: ALT/SGPT 12 U/l (0-40); AST/SGOT 19 U/l (0-37); Albumin 3.8 gm/dL (3.2-5.2); Albumin/Globulin Ratio 2.4 (1.0-2.3); Alkaline Phosphatase 45 U/L (39-117); Bilirubin,Direct < 0.2 mg/dL (0.0-0.3); Bilirubin,Total 0.5 mg/dL (0.0-1.0); Blood Urea Nitrogen 12 mg/dl (8-23); Calcium 8.4 mg/dl (8.6-10.4); Carbon Dioxide 23 mmol/L (22-30); Chloride 107 mmol/L (96-108); Globulin 1.6 gm/dL (2.2-3.7); Glomerular Filtration Rate 54; Glucose 81 mg/dL (70-105); Lactate Dehydrogenase 200 U/L (94-250); Phosphorous 2.2 mg/dL (2.7-4.5); Triglycerides 61 mg/dl (<150); Uric Acid 5.1 mg/dL (2.5-8.0)
[2020-03-08] MEDS: SIMETHICONE 80 MG TAB.CHEW CHEWED SCH ×4 (08:16→20:39)
[2020-03-08] MEDS: DICYCLOMINE 20 MG TABLET PO SCH ×4 (08:16→20:39)
--- NOTE | 2020-03-08 09:42 | XRay Report ---
INDICATION: FOLLOW -UP OF SMALL BOWEL OBSTRUCTION TECHNIQUE: Supine and upright abdomen. COMPARISON: Previous plain film examinations dated 03/07/2020, 03/05/2020, 12/24/2018 FINDINGS:Bowel gas pattern is improved. There is gas within small and large bowel. No significant small bowel dilatation. No significant air-fluid levels. There is no pneumoperitoneum. No biliary or portal venous gas. There is no pneumatosis. IMPRESSION: Improved bowel gas pattern. Interpreted and Authenticated by: Terence Quick 03/08/20
[2020-03-08] MEDS: POLYETHYLENE GLYCOL 3350 17 GM PACKET PO SCH ×3 (10:37→20:39)
[2020-03-08] MEDS ORDERED: POTASSIUM PHOSPHATE 40 MEQ in DEXTROSE 5% IN WATER 500 ML IV ONE (12:23)
--- NOTE | 2020-03-08 12:23 | General Surgery Progress Note ---
SUBJECTIVE Subjective Patient information: Note initiated : 03/08/20 at 12:17 pm Service Date, if different from initiated Date: [] Patient: Danni Dhillon 79 y/o F admitted on 03/07/20 for abdominal pain. Chief Complaint: [] Principal diagnosis: partial obstruction; a dynamic ileus Interval history: patient states that she feels better. She is passing more flatus and she has had at least 3 bowel movements since yesterday.she denies nausea and is tolerating her clear liquids. Abdominal x-ray is significantly improved with decrease in gaseous distention. Potassium 3.9, BUN 12, creatinine 1, phosphorus 2.2, magnesium 1.7. Constitutional Vitals: Vital Signs Temp Pulse Resp BP Pulse Ox 98.7 F 68 16 111/55 95 03/08/20 07:56 03/08/20 07:56 03/08/20 07:56 03/08/20 07:56 03/08/20 07:56 Period Temp Pulse Resp BP Sys/Bang Pulse Ox Last 24 Hr 98.5 F-99.8 F 59-68 14-16 102-134/47-60 90-95 Intake and Output 03/07/20 03/08/20 03/08/20 21:59 05:59 13:59 Intake Total 400 1425 600 Output Total 551 1076 350 Balance -151 349 250 Weight 160 lb 7 oz 160 lb 7 oz Patient Weight 03/09/20 05:59 Weight 160 lb 7 oz Intake & Output: Intake & Output 03/07/20 03/08/20 03/08/20 21:59 05:59 13:59 Intake Total 400 1425 600 Output Total 551 1076 350 Balance -151 349 250 Weight 160 lb 7 oz 160 lb 7 oz Intake: IV 1000 Sodium Chloride 0.9% 1,000 ml @ 1000 84 mls/hr IV .[id number] [facility] Rx#: [id number] Oral 400 425 600 Output: Void Amount 550 1075 350 # of times incontinent of urine 1 1 Other: Meal Breakfast Percent of Meal Consumed 100% Urine Appearance Clear Urine Color Pale Stool Size Moderate Small Stool Color Brown Brown Green Stool Consistency Soft Loose Loose # Bowel Movements 1 1 Head Head exam: Present atraumatic, normal inspection and normocephalic Eye Eye exam: Present EOMI, normal appearance and PERRL Pupils: Present normal accommodation and PERRL ENT ENT exam: Present mucous membranes moist, normal exam and normal oropharynx Neck Neck exam: Present full ROM; Absent tenderness and thyromegaly Respiratory Respiratory exam: Present normal respiratory exam and CTAB; Absent rales, rhonchi and wheezes Cardiovascular Cardiovascular exam: Present normal rate and rhythm, RRR, +S1 and +S2; Absent gallop GI/Abdominal GI/Abdominal exam: Present normal bowel sounds and soft (abdomen is much softer and less distended); Absent rebound and tenderness Extremities Exam Extremities exam: Present full ROM, normal capillary refill and normal inspection; Absent pedal edema and tenderness Back Exam Back exam: Present full ROM and normal inspection Neurological Exam Neurological exam: Present alert, CN II-XII intact, normal gait, oriented X3 and reflexes normal Psychiatric Psychiatric exam: Present normal affect and normal mood Skin Skin exam: Present normal color; Absent cyanosis, pallor and rash A/P Assessment and plan (1) Constipation by delayed colonic transit: Status: Chronic Comment: advanced to full liquid diet Milk of magnesia 30 cc every 4 hours 3 Repeat abdominal x-rays in the morning (2) Hypertension, essential, benign: Status: Chronic Comment: add oral medications as needed Time Spent With Patient Time: Total time spent is greater than 50% in coordination of care (as documented) at patient's floor/unit and/or counseling patient:
[2020-03-08] MEDS: MAGNESIUM HYDROXIDE 30 ML ORAL.SUSP PO SCH ×3 (12:37→20:38)
[2020-03-08] MEDS ORDERED: MAGNESIUM HYDROXIDE 30 ML ORAL.SUSP ONE (12:40)
[2020-03-08] MEDS ORDERED: MAGNESIUM SULFATE 4 GM/100 ML BAG IV ONE (12:45)
[2020-03-09] MEDS: METOCLOPRAMIDE 10 MG/2 ML VIAL IV SCH ×3 (05:14→13:10)
[2020-03-09 07:19] LABS: ALT/SGPT 13 U/l (0-40); AST/SGOT 24 U/l (0-37); Albumin 4.4 gm/dL (3.2-5.2); Albumin/Globulin Ratio 2.4 (1.0-2.3); Alkaline Phosphatase 50 U/L (39-117); Bilirubin,Direct < 0.2 mg/dL (0.0-0.3); Bilirubin,Total 0.5 mg/dL (0.0-1.0); Blood Urea Nitrogen 13 mg/dl (8-23); Calcium 9.1 mg/dl (8.6-10.4); Carbon Dioxide 28 mmol/L (22-30); Chloride 105 mmol/L (96-108); Globulin 1.8 gm/dL (2.2-3.7); Glomerular Filtration Rate 48; Glucose 85 mg/dL (70-105); Lactate Dehydrogenase 239 U/L (94-250); Phosphorous 2.4 mg/dL (2.7-4.5); Triglycerides 59 mg/dl (<150); Uric Acid 4.7 mg/dL (2.5-8.0)
[2020-03-09] MEDS: PANTOPRAZOLE 40 MG VIAL IV SCH (07:41)
--- NOTE | 2020-03-09 09:09 | XRay Report ---
INDICATION: FOLLOW -UP OF SMALL BOWEL OBSTRUCTION TECHNIQUE: Supine and upright abdomen. COMPARISON: Previous examinations dated 02/27/2020, 03/07/2020, 03/05/2020 FINDINGS:There is gas within the colon. No dilated gas-filled small bowel. Bowel gas pattern is unremarkable and nonobstructive. No focal abnormality. There is no biliary or portal venous gas. There is no pneumatosis. IMPRESSION: Nonspecific and nonobstructive bowel gas pattern Interpreted and Authenticated by: Terence Quick 03/09/20
[2020-03-09] MEDS: DICYCLOMINE 20 MG TABLET PO SCH ×2 (09:28→13:05)
[2020-03-09] MEDS: SIMETHICONE 80 MG TAB.CHEW CHEWED SCH (09:28)
[2020-03-09] MEDS: POLYETHYLENE GLYCOL 3350 17 GM PACKET PO SCH (09:28)
--- NOTE | 2020-03-09 13:36 | Discharge Summary ---
Discharge Provider Provider Patient information: Note initiated : 03/09/20 at 1:25 pm Service Date, if different from initiated Date: [] Patient: Danni Dhillon 79 y/o F admitted on 03/07/20 for abdominal pain. 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 She's had multiple episodes of partial incomplete intestinal obstruction. I have followed her in the past but not over the past year. She presents with a history of diffuse abdominal pain involving the entire abdomen but much worse on the left than on the right. She had nausea but no vomiting. Her last bowel movement was the morning of admission. She was evaluated in the emergency room and had a presumptive diagnosis of partial intestinal obstruction. On my review of her x-rays however it appeared that she had more of an adynamic ileus than obstruction. She had gas extending down to her distal sigmoid colon. It was felt that the patient did not need nasogastric decompression. She was admitted started on IV fluids and her pain and nausea were treated medically. After 24 hours she was started on MiraLAX to assist with stool evacuation but she was resistant to some of the therapy. After having a conversation with her she took the medication as she started passing more gas having regular bowel movements. She was given milk of magnesia yesterday and has had more than 7 bowel movement since that time. She is asymptomatic at this time and is tolerating a solid diet. Patient is stable for discharge home. Discharge diagnosis: severe adynamic ileus Secondary discharge diagnosis: partial intestinal obstruction Constipation by delayed colonic transit History of atrial fibrillation, Degenerative disc disease Hypertension Reason for admission: abdominal pain with distention and adynamic ileus Procedures: none Pertinent studies/significant findings: none Complications: none Time Spent with Patient Time attestation: Total time spent providing and/or coordinating discharge services: Physical Examination Vital Signs Vital signs: Temp Pulse Resp BP Pulse Ox 97.3 F 84 18 131/64 95 03/09/20 11:40 03/09/20 11:40 03/09/20 11:40 03/09/20 11:40 03/09/20 11:40 General physical appearance General physical exam: well developed, well nourished, no distress, no pain and chronically ill Eyes Eye exam: PERRL, normal ocular movement and pale ENT ENT exam: normal pinna, normal nares, normal mucosa, no hearing loss, no congestion and decreased hearing Head Head exam IM: Present atraumatic, normal inspection and normocephalic Neck Neck exam: no masses, no bruits, trachea midline, no lymphadenopathy and no venous distension Cardiovascular Cardiovascular exam IM: Present normal rate and rhythm, RRR, +S1, +S2 and systolic murmur; Absent gallop and JVD Respiratory Respiratory exam: normal expansion, normal respiratory effort, clear to percussion and clear to auscultation Abdomen Abdomen: Present soft, tender (mild midabdominal tenderness), bowel sounds (good active bowel sounds) and surgical scars; Absent organomegaly, wound, masses, guarding, rigid, rebound and distended Integumentary Integumentary: Present no rash, no growths and no abnormal pigmentation Neurologic Neurologic: Present normal coordination and normal sensation Musculoskeletal Musculoskeletal: Present normal gait and normal posture Psychiatric Psychiatric: Present oriented to time, oriented to person, oriented to place, speech is normal and memory intact Discharge Plan Patient/Caregiver Discharge Instructions Activity: increase activity as tolerated Diet: Regular Diet Activity Restrictions/Additional Instructions: resume regular activity MiraLAX once or twice daily Prescriptions: New dicyclomine 20 mg Tablet 20 mg PO QID Qty: 60 RF: 5 Continued celecoxib 200 mg capsule 200 mg PO QDAY Qty: 90 RF: 1 levothyroxine 112 mcg tablet 112 mcg PO DAILY Qty: 90 RF: 3 latanoprost [Xalatan] 0.005 % drops 1 drp OPHTHALMIC QDAY RF: 0 rivaroxaban [Xarelto] 15 mg tablet 15 mg PO QDAY Qty: 90 RF: 3 potassium chloride 10 mEq tablet extended release 10 meq PO .COMPLEX RF: 0 brimonidine 0.2 % drops 1 drp OD BID RF: 0 promethazine 25 mg Tablet 25 mg PO Q6H PRN (Reason: Nausea And Vomiting) RF: 0 ipratropium bromide 0.03 % Surprise,Non-Aerosol 1 spray INTRANASAL PRN PRN (Reason: Nasal Congestion) RF: 0 dicyclomine 20 mg tablet 20 mg PO PRN PRN (Reason: Abdominal Discomfort) RF: 0 cetirizine [Aller-Dorene] 10 mg Tablet 10 mg PO QDAY RF: 0 polyethylene glycol 3350 [Miralax] 17 gram/dose Powder See Rx Instructions .ROUTE .COMPLEX RF: 0 magnesium oxide 400 mg magnesium Capsule 400 mg PO QDAY RF: 0 biotin 5,000 mcg Tablet, Sublingual 5,000 mcg SUBLINGUAL QDAY RF: 0 Follow Up Plan Follow up with: Julius Gunter MD [Primary Care Provider] - Benita Oliver MD [Physician] - Patient Disposition: Home, Self-Care Assessment: patient has recovered and is stable for discharge home Prognosis: Fair Rehab Potential: Good I certify that the patient requires SNF services: No Overall status at discharge: patient is progressing back to baseline Discharge Orders: Discharge Order (Routine); Ordered 03/09/20 Ordered By: Benita Oliver Pending Pending Pending: Resuscitation Status Full Code Diet GI Soft/Transitional Start Sat Mar 08 1651 Dicyclomine HCl (Dicyclomine) 20 mg PO QID CONCEPCION Last Admin: 03/09/20 13:05 Dose: 20 mg Documented by: Admin: 03/09/20 09:28 Dose: 20 mg Documented by: Admin: 03/08/20 20:39 Dose: 20 mg Documented by: Admin: 03/08/20 16:43 Dose: 20 mg Documented by: Admin: 03/08/20 12:41 Dose: 20 mg Documented by: Admin: 03/08/20 08:16 Dose: 20 mg Documented by: Admin: 03/07/20 21:00 Dose: 20 mg Documented by: Admin: 03/07/20 17:45 Dose: 20 mg Documented by: Admin: 03/07/20 13:13 Dose: 20 mg Documented by: Admin: 03/07/20 08:22 Dose: 20 mg Documented by: Admin: 03/06/20 21:53 Dose: 20 mg Documented by: Admin: 03/06/20 18:09 Dose: 20 mg Documented by: Admin: 03/06/20 14:18 Dose: 20 mg Documented by: ARON Hydromorphone HCl (Dilaudid) 1 mg IV Q2HP PRN; Protocol PRN Reason: Per Pain Protocol Last Admin: 03/07/20 18:59 Dose: 1 mg Documented by: Admin: 03/07/20 14:31 Dose: 1 mg Documented by: Admin: 03/07/20 08:23 Dose: 1 mg Documented by: VAN Acetaminophen (Ofirmev) 650 mg in 65 mls @ 130 mls/hr IV Q6HP PRN; Protocol PRN Reason: PAIN/FEVER > 101 Last Infusion: 03/06/20 14:47 Dose: 0 mls/hr Documented by: Admin: 03/06/20 14:17 Dose: 130 mls/hr Documented by: ARON Metoclopramide HCl (Reglan) 10 mg IV Q6 [facility]CEPCION Last Admin: 03/09/20 13:10 Dose: Not Given Documented by: Admin: 03/09/20 05:14 Dose: 10 mg Documented by: Admin: 03/08/20 23:19 Dose: 10 mg Documented by: Admin: 03/08/20 17:17 Dose: 10 mg Documented by: Admin: 03/08/20 12:41 Dose: 10 mg Documented by: Admin: 03/08/20 05:26 Dose: 10 mg Documented by: Admin: 03/07/20 23:50 Dose: 10 mg Documented by: Admin: 03/07/20 17:45 Dose: 10 mg Documented by: Admin: 03/07/20 11:45 Dose: 10 mg Documented by: Admin: 03/07/20 06:44 Dose: 10 mg Documented by: Admin: 03/07/20 00:39 Dose: 10 mg Documented by: BRENDA Ondansetron HCl (Zofran) 4 mg IV Q4HP PRN PRN Reason: Nausea And Vomiting Last Admin: 03/07/20 18:59 Dose: 4 mg Documented by: Admin: 03/07/20 08:22 Dose: 4 mg Documented by: Admin: 03/07/20 00:46 Dose: 4 mg Documented by: Admin: 03/06/20 19:10 Dose: 4 mg Documented by: BRENDA Pantoprazole Sodium (Protonix) 40 mg IV BIDAC [facility] Last Admin: 03/09/20 07:41 Dose: 40 mg Documented by: Admin: 03/08/20 16:43 Dose: 40 mg Documented by: Admin: 03/08/20 06:55 Dose: 40 mg Documented by: SILAS Polyethylene Glycol (Miralax) 17 gm PO TID [facility] Last Admin: 03/09/20 09:28 Dose: 17 gm Documented by: Admin: 03/08/20 20:39 Dose: 17 gm Documented by: Admin: 03/08/20 16:44 Dose: 17 gm Documented by: Admin: 03/08/20 10:37 Dose: 17 gm Documented by: SILAS Promethazine HCl (Phenergan) 12.5 mg IV Q4HP PRN PRN Reason: Nausea And Vomiting Last Admin: 03/07/20 11:45 Dose: 12.5 mg Documented by: Admin: 03/07/20 07:35 Dose: 12.5 mg Documented by: Admin: 03/07/20 03:29 Dose: 12.5 mg Documented by: Admin: 03/06/20 22:35 Dose: 12.5 mg Documented by: BRENDA Shift Summary 03/09/20 03:55 Shift Summary by Abigail Wu&Ox4. VSS on ra. Up frequently to BSC with SBA, FWW and GB. 22g IV to R.FA SL. Given replacemant K+Phos and Mg+ rider yesterday for K 3.9, Phos 2.2 and MG 1.7. No pain coverage needed. Passing flatus and numerous BMs. Incontinent of urine at times. On bowel regimen per and received 3 doses of milk of mag yesterday. 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 Progressed to GI soft diet yesterday and tolerated well, no complaints of nausea. Slept well during the night. Lives next door to son and will discharge to home, possibly today. Will update at bedside. Initialized on 03/09/20 03:55 - END OF NOTE
== END 2020-03-09 14:55 | disposition home or self-care (01) | DRG 389 ==
LOC: MEDSUR 21:04 → ED 21:04 → MEDSUR 03-06 00:17
PROVIDERS: ADMIT Family Medicine Adult Medicine; ATTEND Family Medicine Adult Medicine

== ENCOUNTER 2021-07-30 05:56 | Inpatient (IN) ==
[2021-07-30] MEDS ORDERED: IOPAMIDOL 100 ML BOTTLE IV ONE (05:57)
[2021-07-30] MEDS ORDERED: morphine 4 MG/ML VIAL IV ONE ×2 (06:20→09:24)
[2021-07-30] MEDS ORDERED: ONDANSETRON 4 MG/2 ML VIAL IV ONE ×2 (06:20→09:24)
--- NOTE | 2021-07-30 06:49 | Emergency Department Note ---
HPI General Chief complaint: Abdominal Pain Stated complaint: abdominal pain Time Seen by Provider: 07/30/21 06:02 Source: patient Mode of arrival: ambulatory Limitations: no limitations History of Present Illness HPI Narrative: Narrative: Patient is an 80-year-old female who presented with chief complaint of abdominal pain. Patient states over the past day or so she has been having some worsening abdominal pain. She has had decreased bowel movements as well, and then this evening started to have some nausea and vomiting. Patient does have a history of small bowel obstruction, with some significant complications 5 years ago when she was flown up there for surgery in [place]. She otherwise denies any sig nificant symptom such as fever, headache, cough different than normal, chest pain, shortness of breath, hematemesis, changes in urinary habits. Related Data Home Medications Medication Instructions Recorded Confirmed brimonidine 0.2 % eye drops 1 drp OD BID ml 02/07/17 05/15/21 latanoprost 0.005 % eye drops 1 drp OPHTHALMIC QDAY 06/07/17 05/15/21 (Xalatan) potassium chloride 10 mEq 10 meq PO .COMPLEX tab 03/28/18 05/15/21 tablet,extended release promethazine 25 mg tablet 25 mg PO Q6H PRN 03/05/20 05/15/21 magnesium oxide 400 mg PO QDAY 03/06/20 05/15/21 polyethylene glycol 3350 17 See Rx Instructions .ROUTE .COMPLEX 03/06/20 05/15/21 gram/dose oral powder (Miralax) PNV no.165-iron fum-folic acid PO QDAY 02/03/21 05/15/21 diphenhydramine HCl 25 mg capsule 50 mg PO QHS cap 02/03/21 05/15/21 (Benadryl) omeprazole 20 mg capsule,delayed 40 mg PO QDAY cap 02/03/21 05/15/21 release Previous Rx's Medication Instructions Recorded celecoxib 200 mg capsule 200 mg PO QDAY #90 cap 01/25/18 rivaroxaban 15 mg tablet (Xarelto) 15 mg PO QDAY #90 tab 03/02/18 levothyroxine 112 mcg tablet 112 mcg PO DAILY #90 tab 04/25/18 dicyclomine 20 mg tablet 20 mg PO QID 90 Days #360 tab 09/16/20 Allergies Allergy/AdvReac Type Severity Reaction Status Date / Time acetaminophen [From Tylenol] AdvReac Intermediate Hallucinati Verified 02/03/21 09:25 ng ciprofloxacin AdvReac Mild Diarrhea Verified 02/03/21 09:25 Diclofenac AdvReac Mild Nausea Verified 02/03/21 09:25 doxycycline AdvReac Mild Nausea Verified 02/03/21 09:25 Erythromycin Base AdvReac Mild Rash Verified 02/03/21 09:25 [id number] [From Align] AdvReac Mild Diarrhea Verified 02/03/21 09:25 hydrocodone AdvReac Mild Vomiting Verified 02/03/21 09:25 lansoprazole [From Prevacid] AdvReac Mild Confusion Verified 02/03/21 09:25 Review of Systems ROS ROS Narrative: Narrative: All systems ED: reviewed and negative except as stated. PFSH Narrative Patient History Narrative: Narrative: Medical/Surgical/Family History All Active Problems (Updated 07/30/21 @ 06:49 by Cesar Sherwood DO) Abdominal pain (Acute) Contusion of left anterior thigh (Acute) Partial obstruction of small intestine (Acute) USP current use of anticoagulant therapy (Chronic) Atrial fibrillation (Chronic) Hypertension, essential, benign (Chronic) Persistent hoarseness (Chronic) Anemia (Chronic) Constipation by delayed colonic transit (Chronic) Urinary frequency (Chronic) Sciatica of left side (Chronic) Traumatic hematoma of buttock (Acute) Fall from slip, trip, or stumble (Acute) Chronic cough (Chronic) Esophageal ring (Chronic) Gastritis (Chronic) Gastroesophageal reflux disease with esophagitis (Chronic) Allergic arthritis involving hand (Chronic) Hypothyroidism (Chronic) Urinary tract infection, recurrent (Chronic) Rhinitis, allergic (Chronic) Osteoarthritis (Chronic) Hyperlipidemia (Chronic) Degeneration of cervical intervertebral disc (Chronic) Medical History Abdominal pain Allergic arthritis involving hand Anemia Anemia Anemia Atrial fibrillation will restart anticoagulant therapy as soon as possible Bleeding Blepharitis Change in Voice Chest pain Cholecystitis Chronic adrenal insufficiency Chronic cough Community acquired pneumonia Complication of ostomy Constipation by delayed colonic transit if patient shows progression of gas in her colon will start on MiraLAX and probably give milk of magnesia to facilitate bowel movement Degeneration of cervical intervertebral disc DVT (deep venous thrombosis) Dysphagia Elevated troponin 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 - [facility] Enterocutaneous fistula the fistulas have healed but were never surgically addressed so that the site of the fistula origination is not known Esophageal ring Post dilation Fatigue Fecal impaction Gastritis Gastroenteritis Gastroesophageal reflux disease with esophagitis Hyperlipidemia Hypertension, essential, benign add oral medications as needed Hypotension 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 Nuclear sclerosis Osteoarthritis Perforated diverticulum of large intestine with sepsis, respiratory failure, ventilation, colostomy 2014, hospitalized for months, SNF for weeks post hospitalization Peritonitis Persistent hoarseness Pneumonitis Postmenopausal Protein calorie malnutrition Recurrent upper respiratory infection (URI) Rhinitis, allergic Sciatica of left side Seasonal allergies Severe sepsis Small bowel obstruction due to adhesions Syncope Syncope, cardiogenic Thrombus 05/08/2015 - [facility]: RUE nonocclusive thrombus secondary to PICC Line Urinary frequency Urinary tract infection, recurrent Jul 28 - VRE and pseudomonas Surgical History History of bladder repair surgery 1980-A & P repair 1990-Ovarian cyst, Bladder repair History of esophagogastroduodenoscopy 11/03/15, 01/30/16, 10/10/20 History of hysterectomy 1976 History of knee replacement 2009-right History of neck surgery 1999-neck fusion History of oophorectomy History of right knee joint replacement History of rotator cuff surgery 1998 Hx of arthroscopic knee surgery 2008. Meniscal tear and arthritis. Hx of cholecystectomy Hx of hysterectomy Hx of reduction mammoplasty 05/09/2009 Hx of reduction mammoplasty 1999 Hx of shoulder surgery 2001 Status post colostomy Status post colostomy takedown Status post Celina procedure (02/27/15) Family History Unknown Malignant neoplasm of bone Primary malignant neoplasm of bone marrow Cardiac disease Hypertension Malignant neoplasm of lung Malignant neoplasm of pancreas Social History Smoking Status: Former smoker Exam Narrative Narrative: Narrative: Patient is sitting up in bed, talking normally and appropriately. She does not appear to be in acute distress but does appear mildly unco mfortable. General Limitations: no limitations Head Head: Present atraumatic and normocephalic Eye Eye: Present normal appearance, PERRL and EOMI; Absent scleral icterus or conjunctival injection ENT ENT: Present normal oropharynx and mucous membranes moist Neck Neck: Present full ROM and trachea midline; Absent tenderness or lymphadenopathy Chest Chest: Present symmetric chest wall rise Respiratory Respiratory: Present normal lung sounds bilaterally; Absent respiratory distress, rales/crackles, wheezes, stridor or accessory muscle use Cardiovascular Cardiovascular: Present regular rate and normal rhythm; Absent systolic murmur or diastolic murmur Adbominal Abdominal: Present soft, tenderness (Generalized diffuse tenderness.) and guardi ng; Absent rebound, rigidity or mass Extremities Extremities: Absent pedal edema, pretibial edema or calf tenderness Back Back: Absent CVA tenderness (R), CVA tenderness (L) or spinous process tendernes s Neurological Neurological: Present alert and oriented X3 Psychiatric Psychiatric: Present normal affect and normal mood Skin Skin: Present warm (WNL) and dry Course Vital Signs Vital signs: Vital Signs Temperature 98.4 F 07/30/21 05:58 Pulse Rate 93 H 07/30/21 05:58 Respiratory Rate 18 07/30/21 05:58 Blood Pressure 150/118 07/30/21 05:58 Pulse Oximetry (%) 90 07/30/21 05:58 Temperature 98.4 F 07/30/21 05:58 Pulse Rate 69 07/30/21 06:31 Respiratory Rate 18 07/30/21 05:58 Blood Pressure 123/62 07/30/21 06:31 Pulse Oximetry (%) 90 07/30/21 06:31 MDM MDM Narrative Medical decision making narrative: Narrative: Patient is an 80-year-old female who presented with chief complaint of abdominal pain. Patient does have a long history of surgical issues and history of small bowel obstruction. There is high concern for this possibility, though her vital signs are stable. She does have some tenderness on exam with some mild guarding, and thus larger work-up has been performed. Blood work and CT scan are currently pending, however due to shift change patient be signed out to the day physician, Dr. Forrest, to follow-up on the results and disposition appropriately. Patient was given pain and nausea medication here, and I discussed the fact of shift change and both patient and family member at bedside are agreeable to the plan this time have no further concerns or questions. Lab Data Result diagrams: 07/30/21 06:34 07/30/21 06:34 Discharge Plan Patient/Caregiver Discharge Instructions Pt seen by INDEPENDENT FILM MAKER/PA only: No Clinical Impression: Abdominal pain Patient Disposition: Still a Patient Follow up with: Julius Gunter MD [Primary Care Provider] - Prescriptions: No Action celecoxib 200 mg capsule 200 mg PO QDAY Qty: 90 1RF levothyroxine 112 mcg tablet 112 mcg PO DAILY Qty: 90 3RF dicyclomine 20 mg tablet 20 mg PO QID 90 Days Qty: 360 5RF latanoprost [Xalatan] 0.005 % drops 1 drp OPHTHALMIC QDAY 0RF rivaroxaban [Xarelto] 15 mg tablet 15 mg PO QDAY Qty: 90 3RF Rx Instructions: administer with meals potassium chloride 10 mEq tablet extended release 10 meq PO .COMPLEX 0RF Label Comments: 10 mEq PO QHS Rx Instructions: 10 mEq PO QHS omeprazole 20 mg capsule,delayed release(DR/EC) 40 mg PO QDAY 0RF diphenhydramine HCl [Benadryl] 25 mg capsule 50 mg PO QHS 0RF PNV no.165-iron fum-folic acid PO QDAY 0RF brimonidine 0.2 % drops 1 drp OD BID 0RF Label Comments: into right eye promethazine 25 mg Tablet 25 mg PO Q6H PRN (Reason: Nausea And Vomiting) 0RF polyethylene glycol 3350 [Miralax] 17 gram/dose Powder See Rx Instructions .ROUTE .COMPLEX 0RF Rx Instructions: 17 g orally -- or as needed magnesium oxide 400 mg magnesium Capsule 400 mg PO QDAY 0RF
--- NOTE | 2021-07-30 07:35 | Cat Scan Report ---
INDICATION: abd pain COMPARISON: Multiple previous abdominal and pelvic CT scans. Most recent examinations dated 10/09/2018 TECHNIQUE: Axial images were obtained through the abdomen and pelvis. Sagittally and coronally reformatted images. 80 mL Isovue 370 injected intravenously. Oral contrast material was not administered FINDINGS: Lung bases:Negative. No pulmonary parenchymal nodule. No pleural fluid or pericardial fluid Liver:2 cm low-density abnormality in the right lobe of the liver is stable and considered benign. No new intrahepatic abnormalities. Liver contour is smooth. No solid mass. Gallbladder, bilary:Gallbladder is somewhat distended. Gallbladder measures 7.1 x 4.9 cm. There are multiple gallstones in the dependent portion of the gallbladder. No gallbladder wall thickening or pericholecystic fluid. Common bile duct measures 5 mm. Spleen:No splenomegaly. Normal enhancement of splenic and portal veins. Pancreas:No pancreatic mass. No peripancreatic abnormality Adrenal glands:Negative Kidneys,ureters,bladder:No solid renal mass. No hydronephrosis. No obstructing or nonobstructing calculi. No hydroureter. No ureteral calculus. No bladder stone. No detectable bladder mass. Gastrointestinal: Previous gastrointestinal surgery. There is a colonic anastomosis in the pelvis. There is a suture line in the right lower quadrant which is in small bowel. Small bowel is distended and measures approximately 3 cm in diameter. There is small bowel fluid. There is also small bowel feces within the pelvis. Appearance is consistent with mechanical small bowel obstruction. Transition point is in the midline pelvis. There is prominent fecal material throughout the colon consistent with constipation Appendix: The appendix is nonvisualized. No evidence for appendicitis Vascular:Extensive atherosclerotic calcification. No abdominal aortic aneurysm. Celiac trunk and superior mesenteric artery are normal Lymphatic:No retroperitoneal or mesenteric adenopathy Mesentery, peritoneum: No free intraperitoneal fluid. No mesenteric or retroperitoneal mass. No intra-abdominal abscess. Reproductive:Previous hysterectomy. No adnexal mass Musculoskeletal:Multilevel degenerative disc disease. No compression fracture. Sacrum and pelvis are negative. No hip fracture. There is sclerosis in both femoral heads. There is narrowing of both hip joint spaces. CT appearance is not typical of avascular necrosis. No abdominal wall or inguinal hernia IMPRESSION: 1. Mechanical small bowel obstruction within the pelvis 2. Constipation 3. Cholelithiasis and mildly distended gallbladder 4. Low-density lesion in the liver is considered benign and stable 5. Atherosclerotic calcification. No abdominal aortic aneurysm 6. Previous hysterectomy The exam was performed using radiation dose optimization techniques including, but not limited to, automated exposure control, adjustment of the mA and/or kV according to patient size and use of iterative reconstruction technique. Interpreted and Authenticated by: Terence Quick 07/30/21
[2021-07-30 07:56] LABS: Basophils # (Auto) 0.04 K/mcL (0.00-0.30); Basophils % (Auto) 0.4 % (0.0-2.0); Eosinophils # (Auto) 0.01 K/mcL (0.00-0.70); Eosinophils % (Auto) 0.1 % (0.0-7.0); Hematocrit 31.8 % (34.1-44.9); Hemoglobin 10.3 g/dL (11.2-15.7); Lymphocytes % (Auto) 14.3 % (15.5-49.0); Mean Cell Volume 95.8 fL (80.0-100.0); Mean Corpuscular HGB Conc 32.4 g/dL (31.0-36.0); Mean Platelet Volume 10.1 fL (7.4-10.4); Monocytes # (Auto) 0.83 K/mcL (0.10-0.90); Monocytes % (Auto) 8.5 % (1.0-12.0); Neutrophils % (Auto) 76.7 % (38.0-78.0); Platelet Count 415 K/mcL (140-440); RBC 3.32 M/mcL (3.59-5.38); Red Cell Distribution Width 22.4 % (11.5-14.5); WBC 9.8 K/mcL (4.5-11.0)
[2021-07-30 08:21] LABS: ALT/SGPT 15 U/L (<40); AST/SGOT 24 U/L (<32); Albumin 4.9 gm/dL (3.2-5.2); Albumin/Globulin Ratio 2.2 (1.0-2.3); Alkaline Phosphatase 65 U/L (39-117); Bilirubin,Total 0.6 mg/dL (0.1-1.0); Blood Urea Nitrogen 20 mg/dL (8-23); Calcium 9.7 mg/dL (8.6-10.4); Carbon Dioxide 23 mmol/L (22-30); Chloride 102 mmol/L (96-108); Globulin 2.2 gm/dL (2.2-3.7); Glomerular Filtration Rate 42; Glucose 151 mg/dL (70-105)
[2021-07-30 08:26] LABS: POC Creatinine 1.2 mg/dL (0.6-1.2)
--- NOTE | 2021-07-30 08:55 | Emergency Department Note ---
HPI General Chief complaint: Abdominal Pain Stated complaint: abdominal pain Time Seen by Provider: 07/30/21 06:02 Source: patient Mode of arrival: ambulatory Limitations: no limitations History of Present Illness HPI Narrative: Narrative: 80 yo F w/ h/o AF, HTN, and previous SBO p/w abdominal pain and absent BMs for the past few days. Her surgical Hx is somewhat complex - she was seen here in 2014 for an episode of SBO. She was T/F to [facility] for intervention, but subsequently developed perforation, enterocutaneous fistulas, and was intubated in the ICU, ultimately staying hospitalized for about 5 months. She presented here today w/ progressive abdominal pain and absent BMs. She was initially seen by Dr Sherwood, and for full details please see his H&P. He signed her out to me with labs and imaging pending. Currently the patient has minimal abdominal discomfort and o/w has no complaints. Related Data Home Medications Medication Instructions Recorded Confirmed brimonidine 0.2 % eye drops 1 drp OD BID ml 02/07/17 07/30/21 latanoprost 0.005 % eye drops 1 drp OPHTHALMIC BID 06/07/17 07/30/21 (Xalatan) potassium chloride 10 mEq 20 meq PO tab 03/28/18 05/15/21 tablet,extended release promethazine 25 mg tablet 25 mg PO Q6H PRN 03/05/20 07/30/21 magnesium oxide 400 mg PO QDAY 03/06/20 07/30/21 polyethylene glycol 3350 17 See Rx Instructions .ROUTE .COMPLEX 03/06/20 07/30/21 gram/dose oral powder (Miralax) PNV no.165-iron fum-folic acid 1 tab PO QDAY 02/03/21 07/30/21 diphenhydramine HCl 25 mg capsule 50 mg PO QHS cap 02/03/21 07/30/21 (Benadryl) omeprazole 20 mg capsule,delayed 40 mg PO QDAY cap 02/03/21 07/30/21 release amoxicillin 500 mg capsule 500 mg PO 07/30/21 metoclopramide HCl 5 mg tablet 5 mg PO BID 07/30/21 07/30/21 Previous Rx's Medication Instructions Recorded celecoxib 200 mg capsule 200 mg PO QDAY #90 cap 01/25/18 rivaroxaban 15 mg tablet (Xarelto) 15 mg PO QDAY #90 tab 03/02/18 levothyroxine 112 mcg tablet 112 mcg PO DAILY #90 tab 04/25/18 dicyclomine 20 mg tablet 20 mg PO QID 90 Days #360 tab 09/16/20 Allergies Allergy/AdvReac Type Severity Reaction Status Date / Time acetaminophen [From Tylenol] AdvReac Intermediate Hallucinati Verified 02/03/21 09:25 ng ciprofloxacin AdvReac Mild Diarrhea Verified 02/03/21 09:25 Diclofenac AdvReac Mild Nausea Verified 02/03/21 09:25 doxycycline AdvReac Mild Nausea Verified 02/03/21 09:25 Erythromycin Base AdvReac Mild Rash Verified 02/03/21 09:25 [id number] [From Align] AdvReac Mild Diarrhea Verified 02/03/21 09:25 hydrocodone AdvReac Mild Vomiting Verified 02/03/21 09:25 lansoprazole [From Prevacid] AdvReac Mild Confusion Verified 02/03/21 09:25 Review of Systems ROS ROS Narrative: Narrative: All systems ED: reviewed and negative except as stated. 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) Urinary frequency (Chronic) Sciatica of left side (Chronic) Traumatic hematoma of buttock (Acute) Fall from slip, trip, or stumble (Acute) Chronic cough (Chronic) Esophageal ring (Chronic) Gastritis (Chronic) Gastroesophageal reflux disease with esophagitis (Chronic) Allergic arthritis involving hand (Chronic) Hypothyroidism (Chronic) Urinary tract infection, recurrent (Chronic) Rhinitis, allergic (Chronic) Osteoarthritis (Chronic) Hyperlipidemia (Chronic) Degeneration of cervical intervertebral disc (Chronic) Medical History Abdominal pain Allergic arthritis involving hand Anemia Anemia Anemia Atrial fibrillation will restart anticoagulant therapy as soon as possible Bleeding Blepharitis Change in Voice Chest pain Cholecystitis Chronic adrenal insufficiency Chronic cough Community acquired pneumonia Complication of ostomy Constipation by delayed colonic transit if patient shows progression of gas in her colon will start on MiraLAX and probably give milk of magnesia to facilitate bowel movement Degeneration of cervical intervertebral disc DVT (deep venous thrombosis) Dysphagia Elevated troponin 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 - [facility] Enterocutaneous fistula the fistulas have healed but were never surgically addressed so that the site of the fistula origination is not known Esophageal ring Post dilation Fatigue Fecal impaction Gastritis Gastroenteritis Gastroesophageal reflux disease with esophagitis Hyperlipidemia Hypertension, essential, benign add oral medications as needed Hypotension 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 Nuclear sclerosis Osteoarthritis Perforated diverticulum of large intestine with sepsis, respiratory failure, ventilation, colostomy 2014, hospitalized for months, SNF for weeks post hospitalization Peritonitis Persistent hoarseness Pneumonitis Postmenopausal Protein calorie malnutrition Recurrent upper respiratory infection (URI) Rhinitis, allergic Sciatica of left side Seasonal allergies Severe sepsis Small bowel obstruction due to adhesions Syncope Syncope, cardiogenic Thrombus 05/08/2015 - [facility]: RUE nonocclusive thrombus secondary to PICC Line Urinary frequency Urinary tract infection, recurrent Jul 28 - VRE and pseudomonas Surgical History History of bladder repair surgery 1980-A & P repair 1990-Ovarian cyst, Bladder repair History of esophagogastroduodenoscopy 11/03/15, 01/30/16, 10/10/20 History of hysterectomy 1976 History of knee replacement 2009-right History of neck surgery 1999-neck fusion History of oophorectomy History of right knee joint replacement History of rotator cuff surgery 1998 Hx of arthroscopic knee surgery 2008. Meniscal tear and arthritis. Hx of cholecystectomy Hx of hysterectomy Hx of reduction mammoplasty 05/09/2009 Hx of reduction mammoplasty 1999 Hx of shoulder surgery 2001 Status post colostomy Status post colostomy takedown Status post Celina procedure (02/27/15) Family History Unknown Malignant neoplasm of bone Primary malignant neoplasm of bone marrow Cardiac disease Hypertension Malignant neoplasm of lung Malignant neoplasm of pancreas Social History Smoking Status: Former smoker Exam Narrative Narrative: Narrative: General Limitations: no limitations General appearance: Present alert and in no apparent distress Head Head: Present atraumatic and normocephalic ENT ENT: Present normal oropharynx and mucous membranes dry Chest Chest: Present normal inspection and symmetric chest wall rise Respiratory Respiratory: Present normal lung sounds bilaterally; Absent respiratory distress, rales/crackles or wheezes Cardiovascular Cardiovascular: Present regular rate, normal rhythm, +S1, +S2 and other (2+ B/L DP pulses); Absent systolic murmur or diastolic murmur Adbominal Abdominal: Present distention (mild), tenderness (diffuse) and diminished bowel sounds; Absent guarding or rebound Extremities Extremities: Absent pedal edema Neurological Neurological: Present alert and oriented X3 Psychiatric Psychiatric: Present normal affect Skin Skin: Present warm (WNL) and dry Course Vital Signs Vital signs: Vital Signs Temperature 98.4 F 07/30/21 05:58 Pulse Rate 93 H 07/30/21 05:58 Respiratory Rate 18 07/30/21 05:58 Blood Pressure 150/118 07/30/21 05:58 Pulse Oximetry (%) 90 07/30/21 05:58 Temperature 97.8 F 07/30/21 12:46 Pulse Rate 69 07/30/21 12:46 Respiratory Rate 16 07/30/21 12:46 Blood Pressure 113/64 07/30/21 12:46 Pulse Oximetry (%) 96 07/30/21 12:46 MDM MDM Narrative Medical decision making narrative: Narrative: 80 yo F w/ complex PMH including SBO w/ extensive complications p/w abdominal pain, absent BMs. DDx - Peritonitis, aortic pathology, mesenteric ischemia, SBO Patient presented stable, in NAD. She was initially seen by Dr Sherwood who started a workup w/ labs and imaging. Her CT abd/pelvis showed no peritoneal findings, no aortic pathology, but did show SBO. There was no evidence of complication such as perforation. She clinically had no evidence of mesenteric ischemia, and I did not feel that other etiologies such as UTI were the likely source of her Sx. She had no leukocytosis, and no serious metabolic/electrolyte d/o on labs. She was somewhat dehydrated but was o/w stable. I d/w Dr Oliver, her surgeon, who graciously agreed to follow w/ her in hospital, and requested IVF a nd NGT. At this time I am planning to admit to medicine w/ Dr Oliver on board once a bed is available here. Lab Data Result diagrams: 07/30/21 06:34 12/09/21 06:34 Labs: Lab Results 07/30/21 07/30/21 Range/Units 06:34 06:34 WBC 9.8 (4.5-11.0) K/mcL RBC 3.32 L (3.59-5.38) M/mcL Hgb 10.3 L (11.2-15.7) g/dL Hct 31.8 L (34.1-44.9) % MCV 95.8 (80.0-100.0) fL MCH 31.0 (26.0-34.0) pg MCHC 32.4 (31.0-36.0) g/dL RDW 22.4 H (11.5-14.5) % Plt Count 415 (140-440) K/mcL MPV 10.1 (7.4-10.4) fL Neut % (Auto) 76.7 (38.0-78.0) % Lymph % (Auto) 14.3 L (15.5-49.0) % [place] % (Auto) 8.5 (1.0-12.0) % Eos % (Auto) 0.1 (0.0-7.0) % Baso % (Auto) 0.4 (0.0-2.0) % Lymph # (Auto) 1.40 L (1.50-4.80) K/mcL [place] # (Auto) 0.83 (0.10-0.90) K/mcL Eos # (Auto) 0.01 (0.00-0.70) K/mcL Baso # (Auto) 0.04 (0.00-0.30) K/mcL Absolute Neutrophils 7.50 (1.80-8.00) K/mcL Sodium 139 (133-145) mmol/L Potassium 4.1 (3.3-5.1) mmol/L Chloride 102 (96-108) mmol/L Carbon Dioxide 23 (22-30) mmol/L Anion Gap 14.0 (8.0-16.0) BUN 20 (8-23) mg/dL Creatinine 1.2 H (0.6-1.1) mg/dL POC Creatinine 1.2 (0.6-1.2) mg/dL GFR Calculation 42 Glucose 151 H (70-105) mg/dL Calcium 9.7 (8.6-10.4) mg/dL Total Bilirubin 0.6 (0.1-1.0) mg/dL AST 24 (<32) U/L ALT 15 (<40) U/L Alkaline Phosphatase 65 (39-117) U/L Total Protein 7.1 (5.9-8.4) gm/dL Albumin 4.9 (3.2-5.2) gm/dL Globulin 2.2 (2.2-3.7) gm/dL Albumin/Globulin Ratio 2.2 (1.0-2.3) Lipase 27 (7-60) U/L ED POC Tests ED POC Tests: JUMA - SARS Antigen Negative Discharge Plan Patient/Caregiver Discharge Instructions Pt seen by PAY STATION DEPARTMENT MANAGER/PA only: No Clinical Impression: Abdominal pain, Small bowel obstruction, Atrial fibrillation Patient Disposition: Xfer As Inpt ([facility]) Condition: Good Discharge Date/Time: 07/30/21 12:10
[2021-07-30] MEDS ORDERED: DEXTROSE 5%-1/2NS W/40MEQ KCL 1,000 ML IV SCH (09:30)
[2021-07-30] MEDS ORDERED: BENZOCAINE 1 SPRAY BOTTLE TOPICAL ONE (10:45)
[2021-07-30] MEDS ORDERED: LORazepam 2 MG/ML ORAL.SOL PO ONE (10:45)
[2021-07-30] MEDS ORDERED: DEXTROSE 5%-1/2NS 1,000 ML IV SCH (11:00)
[2021-07-30] MEDS ORDERED: LORazepam 1 MG TABLET PO ONE (11:01)
--- NOTE | 2021-07-30 12:01 | XRay Report ---
INDICATION: ng placement TECHNIQUE: Supine abdomen. COMPARISON: None FINDINGS:Esophagogastric tube with its tip in the body of the stomach. Sidehole of the catheter is below the gastroesophageal junction. IMPRESSION: Esophagogastric tube in the stomach Interpreted and Authenticated by: Terence Quick 07/30/21
[2021-07-30] MEDS ORDERED: ONDANSETRON 4 MG/2 ML VIAL IV PRN (13:51)
[2021-07-30] MEDS ORDERED: HYDROmorphone 1 MG/ML SYRINGE IV PRN (13:56)
[2021-07-30] MEDS ORDERED: NA PHOS M B RC PRN (14:02)
[2021-07-30] MEDS ORDERED: NA PHOS DI BA RC PRN (14:02)
--- NOTE | 2021-07-30 14:31 | General Surg History&Physical ---
HPI History of Present Illness Patient information: Note initiated : 07/30/21 at 2:23 pm Service Date, if different from initiated Date: [] Patient: Danni Dhillon 80 y/o F admitted on 07/30/21 for Abdominal Pain . Chief Complaint: [] Chief complaint: Partial small bowel obstruction; intra-abdominal adhesions History of present illness: Ms. Dhillon is a 80 year old F with a long history of intestinal problems dating back to 2014. She has had multiple episodes of partial intestinal obstruction. She presented with decreased flatus and bowel movements. Her last bowel movement was 2 days prior to admission. She developed some abdominal distention and had decreased output of flatus. Her abdominal x-rays are of poor quality and nondiagnostic. CT shows significant fecal burden in the colon extending down to the rectum. Her rectal anastomosis is intact She has a history of colostomy secondary to intestinal perforation in 2014. She had a colostomy takedown in February 2017. At that surgery she was noted extensive intraperitoneal adhesions she also has had a long-term history constipation due to delayed transit. 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) Urinary frequency (Chronic) Sciatica of left side (Chronic) Traumatic hematoma of buttock (Acute) Fall from slip, trip, or stumble (Acute) Chronic cough (Chronic) Esophageal ring (Chronic) Gastritis (Chronic) Gastroesophageal reflux disease with esophagitis (Chronic) Allergic arthritis involving hand (Chronic) Hypothyroidism (Chronic) Urinary tract infection, recurrent (Chronic) Rhinitis, allergic (Chronic) Osteoarthritis (Chronic) Hyperlipidemia (Chronic) Degeneration of cervical intervertebral disc (Chronic) Medical History Abdominal pain Allergic arthritis involving hand Anemia Anemia Anemia Atrial fibrillation will restart anticoagulant therapy as soon as possible Bleeding Blepharitis Change in Voice Chest pain Cholecystitis Chronic adrenal insufficiency Chronic cough Community acquired pneumonia Complication of ostomy Constipation by delayed colonic transit if patient shows progression of gas in her colon will start on MiraLAX and probably give milk of magnesia to facilitate bowel movement Degeneration of cervical intervertebral disc DVT (deep venous thrombosis) Dysphagia Elevated troponin 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 - [facility] Enterocutaneous fistula the fistulas have healed but were never surgically addressed so that the site of the fistula origination is not known Esophageal ring Post dilation Fatigue Fecal impaction Gastritis Gastroenteritis Gastroesophageal reflux disease with esophagitis Hyperlipidemia Hypertension, essential, benign add oral medications as needed Hypotension Hypothyroidism penitentiary current use of anticoagulant therapy Nuclear sclerosis Osteoarthritis Perforated diverticulum of large intestine with sepsis, respiratory failure, ventilation, colostomy 2014, hospitalized for months, SNF for weeks post hospitalization Peritonitis Persistent hoarseness Pneumonitis Postmenopausal Protein calorie malnutrition Recurrent upper respiratory infection (URI) Rhinitis, allergic Sciatica of left side Seasonal allergies Severe sepsis Small bowel obstruction due to adhesions Syncope Syncope, cardiogenic Thrombus 05/08/2015 - [facility]: RUE nonocclusive thro mbus secondary to PICC Line Urinary frequency Urinary tract infection, recurrent Jul 28 - VRE and pseudomonas Surgical History History of bladder repair surgery 1980-A & P repair 1990-Ovarian cyst, Bladder repair History of esophagogastroduodenoscopy 11/03/15, 01/30/16, 10/10/20 History of hysterectomy 1976 History of knee replacement 2009-right History of neck surgery 1999-neck fusion History of oophorectomy History of right knee joint replacement History of rotator cuff surgery 1998 Hx of arthroscopic knee surgery 2008. Meniscal tear and arthritis. Hx of cholecystectomy Hx of hysterectomy Hx of reduction mammoplasty 05/09/2009 Hx of reduction mammoplasty 1999 Hx of shoulder surgery 2001 Status post colostomy Status post colostomy takedown Status post Celina procedure (02/27/15) Family History Unknown Malignant neoplasm of bone Primary malignant neoplasm of bone marrow Cardiac disease Hypertension Malignant neoplasm of lung Malignant neoplasm of pancreas MEDS/ALLERGIES Home Medications and Allergies Home Medications Medication Instructions Recorded Confirmed Type brimonidine 0.2 % eye drops 1 drp OD BID ml 02/07/17 05/15/21 History latanoprost 0.005 % eye drops 1 drp OPHTHALMIC QDAY 06/07/17 05/15/21 History (Xalatan) celecoxib 200 mg capsule 200 mg PO QDAY #90 cap 01/25/18 05/15/21 Rx rivaroxaban 15 mg tablet (Xarelto) 15 mg PO QDAY #90 tab 03/02/18 05/15/21 Rx potassium chloride 10 mEq 10 meq PO .COMPLEX tab 03/28/18 05/15/21 History tablet,extended release levothyroxine 112 mcg tablet 112 mcg PO DAILY #90 tab 04/25/18 05/15/21 Rx promethazine 25 mg tablet 25 mg PO Q6H PRN 03/05/20 05/15/21 History magnesium oxide 400 mg PO QDAY 03/06/20 05/15/21 History polyethylene glycol 3350 17 See Rx Instructions .ROUTE .COMPLEX 03/06/2005/15 History gram/dose oral powder (Miralax) dicyclomine 20 mg tablet 20 mg PO QID 90 Days #360 tab 09/16/20 05/15/21 Rx PNV no.165-iron fum-folic acid PO QDAY 02/03/21 05/15/21 History diphenhydramine HCl 25 mg capsule 50 mg PO QHS cap 02/03/21 05/15/21 History (Benadryl) omeprazole 20 mg capsule,delayed 40 mg PO QDAY cap 02/03/21 05/15/21 History release Allergies Allergy/AdvReac Type Severity Reaction Status Date / Time acetaminophen [From Tylenol] AdvReac Intermediate Hallucinati Verified 02/03/21 09:25 ng ciprofloxacin AdvReac Mild Diarrhea Verified 02/03/21 09:25 Diclofenac AdvReac Mild Nausea Verified 02/03/21 09:25 doxycycline AdvReac Mild Nausea Verified 02/03/21 09:25 Erythromycin Base AdvReac Mild Rash Verified 02/03/21 09:25 [id number] [From Align] AdvReac Mild Diarrhea Verified 02/03/21 09:25 hydrocodone AdvReac Mild Vomiting Verified 02/03/21 09:25 lansoprazole [From Prevacid] AdvReac Mild Confusion Verified 02/03/21 09:25 Physical Examination Vital Signs Vital signs: Temp Pulse Resp BP Pulse Ox 97.8 F 69 16 113/64 96 07/30/21 12:46 07/30/21 12:46 07/30/21 12:46 07/30/21 12:46 07/30/21 12:46 General physical appearance General physical exam: well developed, well nourished, no distress, no pain, chr onically ill and obese Eyes Eye exam: PERRL and normal ocular movement ENT ENT exam: normal mucosa and no congestion Head Head exam IM: Present atraumatic, normal inspection and normocephalic Neck Neck exam: no masses, no bruits, trachea midline, no lymphadenopathy and no venous distension Cardiovascular Cardiovascular exam IM: Present normal rate and rhythm, RRR, +S1 and +S2; Absent JVD Respiratory Respiratory exam: normal expansion, normal respiratory effort and clear to auscultation Abdomen Abdomen: Present soft and tender (Mild diffuse tenderness; no masses; active bowel sounds) Integumentary Integumentary: Present no rash, no growths and no abnormal pigmentation Neurologic Neurologic: Present normal coordination and normal sensation Musculoskeletal Musculoskeletal: Present normal gait and normal posture Psychiatric Psychiatric: Present oriented to time, oriented to person, oriented to place, speech is normal, memory intact and other Results Labs Result diagrams: 07/30/21 06:34 07/30/21 06:34 Labs: Abnormal lab results 07/30/21 07/30/21 Range/Units 06:34 06:34 RBC 3.32 L (3.59-5.38) M/mcL Hgb 10.3 L (11.2-15.7) g/dL Hct 31.8 L (34.1-44.9) % RDW 22.4 H (11.5-14.5) % Lymph % (Auto) 14.3 L (15.5-49.0) % Lymph # (Auto) 1.40 L (1.50-4.80) K/mcL Creatinine 1.2 H (0.6-1.1) mg/dL Glucose 151 H (70-105) mg/dL Diabetes panel 07/30/21 Range/Units 06:34 Sodium 139 (133-145) mmol/L Potassium 4.1 (3.3-5.1) mmol/L Chloride 102 (96-108) mmol/L Carbon Dioxide 23 (22-30) mmol/L BUN 20 (8-23) mg/dL Creatinine 1.2 H (0.6-1.1) mg/dL Glucose 151 H (70-105) mg/dL Calcium 9.7 (8.6-10.4) mg/dL AST 24 (<32) U/L ALT 15 (<40) U/L Alkaline Phosphatase 65 (39-117) U/L Total Protein 7.1 (5.9-8.4) gm/dL Albumin 4.9 (3.2-5.2) gm/dL Calcium panel 07/30/21 Range/Units 06:34 Calcium 9.7 (8.6-10.4) mg/dL Albumin 4.9 (3.2-5.2) gm/dL Pituitary panel 07/30/21 Range/Units 06:34 Sodium 139 (133-145) mmol/L Potassium 4.1 (3.3-5.1) mmol/L Chloride 102 (96-108) mmol/L Carbon Dioxide 23 (22-30) mmol/L BUN 20 (8-23) mg/dL Creatinine 1.2 H (0.6-1.1) mg/dL Glucose 151 H (70-105) mg/dL Calcium 9.7 (8.6-10.4) mg/dL Adrenal panel 07/30/21 Range/Units 06:34 Sodium 139 (133-145) mmol/L Potassium 4.1 (3.3-5.1) mmol/L Chloride 102 (96-108) mmol/L Carbon Dioxide 23 (22-30) mmol/L BUN 20 (8-23) mg/dL Creatinine 1.2 H (0.6-1.1) mg/dL Glucose 151 H (70-105) mg/dL Calcium 9.7 (8.6-10.4) mg/dL Total Bilirubin 0.6 (0.1-1.0) mg/dL AST 24 (<32) U/L ALT 15 (<40) U/L Alkaline Phosphatase 65 (39-117) U/L Total Protein 7.1 (5.9-8.4) gm/dL Albumin 4.9 (3.2-5.2) gm/dL All other labs normal. A/P Assessment and plan (1) Partial obstruction of small intestine: Status: Acute Comment: nothing by mouth except for ice chips and popsicles (2) Hypertension, essential, benign: Status: Chronic Comment: add oral medications as needed (3) Constipation by delayed colonic transit: Status: Chronic Comment: if patient shows progression of gas in her colon will start on MiraLAX and probably give milk of magnesia to facilitate bowel movement (4) Small bowel obstruction due to adhesions: Status: Resolved (5) Gastroesophageal reflux disease with esophagitis: Status: Chronic Narrative A/P Narrative: Nasogastric tube decompression Fleets enema x2; advance to soapsuds enema if they are not effective Metoclopramide every 6 hours the Start MiraLAX after she has evacuated her rectum Serial abdominal x-rays Small bowel follow-through with contrast prior to advancing diet Time Spent With Patient Time: Total time spent is greater than 50% in coordination of care (as documented) at patient's floor/unit and/or counseling patient:
[2021-07-30] MEDS: 0.9 % SODIUM CHLORIDE 10 ML SYRINGE IV SCH ×2 (14:35→21:31)
[2021-07-30] MEDS ORDERED: BENZOCAINE 1 SPRAY BOTTLE TOPICAL PRN (14:42)
[2021-07-30] MEDS: BENZOCAINE/MENTHOL 1 LOZENGE PO PRN (14:54)
[2021-07-30] MEDS: LACTATED RINGERS 1,000 ML IV SCH ×2 (14:54→21:43)
[2021-07-30] MEDS: FLEETS ADULT ENEMA PR PRN ×2 (15:44→18:47)
[2021-07-30] MEDS: METOCLOPRAMIDE 10 MG/2 ML VIAL IV SCH (18:47)
[2021-07-30] MEDS: PANTOPRAZOLE 40 MG VIAL IV SCH (18:47)
[2021-07-31] MEDS: METOCLOPRAMIDE 10 MG/2 ML VIAL IV SCH ×3 (00:29→14:25)
[2021-07-31] MEDS: LACTATED RINGERS 1,000 ML IV SCH ×3 (01:06→10:47)
[2021-07-31] MEDS: BENZOCAINE/MENTHOL 1 LOZENGE PO PRN (02:08)
[2021-07-31] MEDS: 0.9 % SODIUM CHLORIDE 10 ML SYRINGE IV SCH ×2 (05:28→14:30)
--- NOTE | 2021-07-31 07:18 | XRay Report ---
INDICATION: Partial small bowel obstruction TECHNIQUE: Supine and upright abdomen. COMPARISON: Previous CT scan dated 07/30/2021 FINDINGS:Esophagogastric tube in the stomach. There are surgical clips in the pelvis. Bowel gas pattern is significantly improved. Distended gas-filled small bowel in the lower abdomen and pelvis has resolved. There is gas within the colon. Present bowel gas pattern is considered unremarkable. There is no pneumoperitoneum. No biliary or portal venous gas. No pneumatosis IMPRESSION: 1. Improved bowel gas pattern 2. No acute abnormality Interpreted and Authenticated by: Terence Quick 07/31/21
[2021-07-31] MEDS: PANTOPRAZOLE 40 MG VIAL IV SCH ×2 (07:34→16:29)
[2021-07-31 08:07] LABS: Basophils # (Auto) 0.02 K/mcL (0.00-0.30); Basophils % (Auto) 0.3 % (0.0-2.0); Eosinophils # (Auto) 0.14 K/mcL (0.00-0.70); Eosinophils % (Auto) 2.4 % (0.0-7.0); Hematocrit 26.2 % (34.1-44.9); Lymphocytes # (Auto) 1.03 K/mcL (1.50-4.80); Lymphocytes % (Auto) 17.6 % (15.5-49.0); Mean Cell Volume 95.3 fL (80.0-100.0); Mean Corpuscular HGB Conc 34.4 g/dL (31.0-36.0); Mean Platelet Volume 9.8 fL (7.4-10.4); Monocytes # (Auto) 0.93 K/mcL (0.10-0.90); Monocytes % (Auto) 15.9 % (1.0-12.0); Neutrophils % (Auto) 63.8 % (38.0-78.0); Platelet Count 296 K/mcL (140-440); RBC 2.75 M/mcL (3.59-5.38); Red Cell Distribution Width 22.5 % (11.5-14.5); WBC 5.9 K/mcL (4.5-11.0)
[2021-07-31 08:46] LABS: ALT/SGPT 11 U/L (<40); AST/SGOT 17 U/L (<32); Albumin/Globulin Ratio 2.7 (1.0-2.3); Alkaline Phosphatase 52 U/L (39-117); Bilirubin,Direct < 0.2 mg/dL (0-0.3); Bilirubin,Total 0.5 mg/dL (0.1-1.0); Blood Urea Nitrogen 16 mg/dL (8-23); Calcium 8.4 mg/dL (8.6-10.4); Carbon Dioxide 27 mmol/L (22-30); Chloride 108 mmol/L (96-108); Globulin 1.5 gm/dL (2.2-3.7); Glomerular Filtration Rate 60; Glucose 89 mg/dL (70-105); Lactate Dehydrogenase 158 U/L (135-225); Phosphorous 4.6 mg/dL (2.5-4.5); Triglycerides 63 mg/dL (<150); Uric Acid 4.8 mg/dL (2.5-8.0)
--- NOTE | 2021-07-31 10:50 | XRay Report ---
INDICATION: f/u of partial small bowel obstruction TECHNIQUE: Dilute Gastrografin was given through the patient's nasogastric tube. COMPARISON: Previous CT scan dated 07/30/2021 FINDINGS: There is contrast material throughout the small bowel and in the transverse colon by 1 hour 10 minutes post injection. Small bowel is not dilated. Appearance is consistent with resolution of mechanical small bowel obstruction. No biliary or portal venous gas. No pneumatosis. IMPRESSION: Normal appearance of small bowel and large bowel. No evidence for mechanical small bowel obstruction Interpreted and Authenticated by: Terence Quick 07/31/21
[2021-07-31] MEDS ORDERED: DIATRIZOATE MEGLU/DIATRIZO SOD 120 ML BOTTLE PO ONE ×2 (11:07)
--- NOTE | 2021-07-31 16:21 | Discharge Summary ---
Discharge Provider Provider Patient information: Note initiated : 07/31/21 at 4:08 pm Service Date, if different from initiated Date: [] Patient: Danni Dhillon 80 y/o F admitted on 07/30/21 for Abdominal Pain . Chief Complaint: [] Date of admission: 07/30/21 12:12 Discharge date: 07/31/21 Primary care physician: Julius Gunter Admitting clinician: Benita Oliver Attending physician on admission: Benita Oliver Consults: 07/30/21 Consult to Physician [CONS] Stat Comment: Consulting Provider: Benita Oliver Reason For Exam: Physician to Consult Attending physician on discharge: Benita Oliver Discharging clinician: Benita Oliver COURSE Hospital Course Hospital course: 80-year-old female with long history of recurrent partial small bowel obstruction. I have followed her since 2016. 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 She is status post colostomy takedown and has been having some problems with bowel movements. She presented to the emergency room with abdominal pain nausea and vomiting. She had dilated loops of small bowel but large volume of fecal burden extending to her right colon. She was decompressed with a nasogastric tube and was given enemas followed by soapsuds enemas. She tolerated liquids and had a small bowel follow-through which showed transit time of 90 minutes. She is remained stable and is ready for discharge home. Discharge diagnosis: Partial small bowel obstruction due to adhesions Secondary discharge diagnosis: Recurrent constipation Reason for admission: Partial small bowel obstruction Procedures: None Pertinent studies/significant findings: Oral contrast small bowel follow-through Complications: None Time Spent with Patient Time attestation: Total time spent providing and/or coordinating discharge services: Physical Examination Vital Signs Vital signs: Temp Pulse Resp BP Pulse Ox 97.8 F 83 14 132/64 94 07/31/21 15:40 07/31/21 15:40 07/31/21 15:40 07/31/21 15:40 07/31/21 15:40 General physical appearance General physical exam: well developed, well nourished, no distress and no pain Eyes Eye exam: PERRL and normal ocular movement ENT ENT exam: normal nares, normal mucosa and decreased hearing Head Head exam IM: Present atraumatic, normal inspection and normocephalic Neck Neck exam: no masses, no bruits, trachea midline, no lymphadenopathy and no venous distension Cardiovascular Cardiovascular exam IM: Present normal rate and rhythm, RRR, +S1 and +S2; Absent JVD Respiratory Respiratory exam: normal expansion, normal respiratory effort and clear to auscultation Abdomen Abdomen: Present soft, non tender and bowel sounds; Absent guarding or distended Integumentary Integumentary: Present no rash, no growths and no abnormal pigmentation Neurologic Neurologic: Present normal coordination and normal sensation Musculoskeletal Musculoskeletal: Present normal gait and normal posture Psychiatric Psychiatric: Present oriented to time, oriented to person, oriented to place, speech is normal and memory intact Discharge Plan Patient/Caregiver Discharge Instructions Activity: increase activity as tolerated Diet: Regular Diet Prescriptions: Continued celecoxib 200 mg capsule 200 mg PO QDAY Qty: 90 1RF levothyroxine 112 mcg tablet 112 mcg PO DAILY Qty: 90 3RF dicyclomine 20 mg tablet 20 mg PO QID 90 Days Qty: 360 5RF Rx Instructions: 2-4 pills PRN for crampy abdomen latanoprost [Xalatan] 0.005 % drops 1 drp OPHTHALMIC BID 0RF rivaroxaban [Xarelto] 15 mg tablet 15 mg PO QDAY Qty: 90 3RF Rx Instructions: administer with meals potassium chloride 10 mEq tablet extended release 20 meq PO QHS 0RF Label Comments: 20 mEq PO QHS Rx Instructions: 20 mEq PO QHS omeprazole 20 mg capsule,delayed release(DR/EC) 40 mg PO QDAY 0RF diphenhydramine HCl [Benadryl] 25 mg capsule 50 mg PO QHS 0RF PNV no.165-iron fum-folic acid 1 tab PO QDAY 0RF brimonidine 0.2 % drops 1 drp OD BID 0RF Label Comments: into right eye promethazine 25 mg Tablet 25 mg PO Q6H PRN (Reason: Nausea And Vomiting) 0RF polyethylene glycol 3350 [Miralax] 17 gram/dose Powder See Rx Instructions .ROUTE .COMPLEX 0RF Rx Instructions: 17 g orally -- or as needed magnesium oxide 400 mg magnesium Capsule 400 mg PO QDAY 0RF amoxicillin 500 mg capsule See Rx Instructions .ROUTE .COMPLEX 0RF Label Comments: Patient states that she does not take these but has them available if needed prior to oral surgeries/dental procedures. Rx Instructions: 500 mg orally metoclopramide HCl 5 mg tablet 5 mg PO BID 0RF Rx Instructions: before meals ferrous sulfate 47.5 mg iron Tablet Extended Release 45 mg PO QDAY 0RF cholecalciferol (vitamin D3) [Vitamin D3] 25 mcg (1,000 unit) Tablet,Chewable 25 mcg PO QDAY 0RF Follow Up Plan Follow up with: Julius Gunter MD [Primary Care Provider] - Patient Disposition: Home, Self-Care Plan of Treatment: Patient is encouraged to use MiraLAX once or twice a day to facilitate frequent bowel movements Prognosis: Good Rehab Potential: Good I certify that the patient requires SNF services: No Overall status at discharge: patient is back to baseline Discharge Orders: Discharge Order (Routine); Ordered 07/31/21 Ordered By: Benita Oliver Pending Pending Pending: Resuscitation Status Resuscitate (Full Code) Diet Full Liquid Diet Start TueJul 31 1106 Metoclopramide HCl (Metoclopramide 10 Mg/2 Ml Vial) 10 mg IV Q6 [facility] Last Admin: 07/31/21 14:25 Dose: 10 mg Documented by: Admin: 07/31/21 05:40 Dose: 10 mg Documented by: Admin: 07/31/21 00:29 Dose: 10 mg Documented by: Admin: 07/30/21 18:47 Dose: 10 mg Documented by: ANDRÉS Ondansetron HCl (Ondansetron 4 Mg/2 Ml Vial) 4 mg IV Q6HP PRN PRN Reason: Nausea And Vomiting Last Admin: 07/31/21 08:30 Dose: 4 mg Documented by: NAB1 Pantoprazole Sodium (Pantoprazole 40 Mg Vial) 40 mg IV BIDAC [facility] Last Admin: 07/31/21 07:34 Dose: 40 mg Documented by: Admin: 07/30/21 18:47 Dose: 40 mg Documented by: ANDRÉS Sodium Biphosphate/Sodium Phosphate (Fleets Adult Enema) 1 dose LA Q2-3HP PRN PRN Reason: Constipation Last Admin: 07/30/21 18:47 Dose: 1 dose Documented by: Admin: 07/30/21 15:44 Dose: 1 dose Documented by: KIMBERLYW Sodium Chloride (0.9 % Sodium Chloride 10 Ml Syringe) 10 ml IV Q8 [facility] Last Admin: 07/31/21 14:30 Dose: 10 ml Documented by: Admin: 07/31/21 05:28 Dose: Not Given Documented by: Admin: 07/30/21 21:31 Dose: Not Given Documented by: Admin: 07/30/21 14:35 Dose: Not Given Documented by: ANDRÉS Throat Lozenges (Benzocaine/Menthol 1 Lozenge) 1 lozenge PO PRN PRN PRN Reason: Sore Throat Last Admin: 07/31/21 02:08 Dose: 1 lozenge Documented by: Admin: 07/30/21 14:54 Dose: 1 lozenge Documented by: ANDRÉS Shift Summary 07/31/21 03:26 Shift Summary by Iqra Hankins Primary Diagnosis: Partial SBO Registration Status: Day of Hospitalization: Admitted 07/30 Date of Surgery (if applicable): N/A Pertinent Medical Dx/Issues (may be more than one): Afib, HTN, DVT, HLD, anemia, gerd, SBO, fistula Interventions (O2, wounds, diuresis, etc): RA Vital Signs with Trends: Full code. A&Ox4, forgetfull. VSS, occasional cough Meds (abo, pain, BP, etc): reglan, protonix fleets x2 yesterday, order for soap suds if fleets not effective, sore throat, Cepacol lozenge given. Lines/Tubes: LR 125/h in right forearm, NG medium intermittent suction. Oxygen needs (home use vs. current use): RA Lab/Rad results: Xray ordered for this morning Cardiac Rhythm (if applicable), alarms, trends: Bed alarm on Date of last BM: 07/31, multiple BMs this shift Elimination: Commode moved next to bed for convenience after enema, attends in place for incontinence, Recommendations/questions for MD (DC Lin? DC CM? PICC needed?): Trends (is the patient improving?): starting to have bowel movements Activity: SBA Expected date of discharge: TBD Discharge Plan (needs, disposition, etc): Initialized on 07/31/21 03:26 - END OF NOTE
--- NOTE | 2021-07-31 22:15 | EKG ---
[facility] Test Date: 2021-07-30 Pat Name: Danni Dhillon Department: [facility] Room: 126 Gender: Female Career Resource Specialist: : 1940 Requested By: Benita Oliver Order Number: [id number] Reading MD: Gerard Moulton Measurements Intervals [place] Rate: 63 P: 62 FL: 235 QRS: -27 QRSD: 151 T: 144 QT: 444 QTc: 455 Interpretive Statements Sinus rhythm Prolonged FL interval Left bundle branch block Baseline wander in lead(s) II,aVR,aVF Electronically Signed On 07-31-2021 22:15:05 PST by Gerard Moulton /store/M0/[id number]
== END 2021-07-31 16:50 | disposition home or self-care (01) | DRG 389 ==
LOC: ED 05:56 → MEDSUR 12:12
PROVIDERS: ADMIT Family Medicine Adult Medicine; ATTEND Family Medicine Adult Medicine

== ENCOUNTER 2023-05-26 04:38 | Inpatient (IN) ==
[2023-05-26] MEDS ORDERED: PANTOPRAZOLE 40 MG VIAL IV ONE (04:56)
[2023-05-26] MEDS ORDERED: 0.9 % SODIUM CHLORIDE 1,000 ML IV ONE (04:56)
[2023-05-26] MEDS ORDERED: ONDANSETRON 4 MG/2 ML VIAL IV ONE (04:56)
[2023-05-26 05:19] LABS: POC Calcium, Ionized 1.23 (1.16-1.32); POC Creatinine 1.2 (0.6-1.2); POC Potassium 4.4 (3.3-5.1)
[2023-05-26] MEDS ORDERED: morphine 4 MG/ML VIAL IV ONE (05:54)
[2023-05-26 07:32] LABS: Basophils # (Auto) 0.05 K/mcL (0.00-0.30); Basophils % (Auto) 0.7 % (0.0-2.0); Eosinophils # (Auto) 0 K/mcL (0.00-0.70); Eosinophils % (Auto) 0 % (0.0-7.0); Hematocrit 40.4 % (34.1-44.9); Hemoglobin 12.1 g/dL (11.2-15.7); Lymphocytes # (Auto) 0.41 K/mcL (1.50-4.80); Lymphocytes % (Auto) 5.9 % (15.5-49.0); Mean Cell Volume 104.1 fL (80.0-100.0); Mean Platelet Volume 11.3 fL (8.8-12.5); Monocytes # (Auto) 0.47 K/mcL (0.10-0.90); Monocytes % (Auto) 6.7 % (1.0-12.0); Neutrophils % (Auto) 86.4 % (38.0-78.0); Platelet Count 264 K/mcL (140-440); RBC 3.88 M/mcL (3.59-5.38); Red Cell Distribution Width 22.7 % (11.5-14.5)
[2023-05-26] MEDS: 0.9 % SODIUM CHLORIDE 1,000 ML IV SCH ×2 (07:51→19:44)
[2023-05-26] MEDS: morphine 2 MG/ML VIAL IV PRN ×3 (08:12→17:10)
[2023-05-26] MEDS: ONDANSETRON 4 MG/2 ML VIAL IV PRN ×3 (08:16→17:09)
[2023-05-26] MEDS ORDERED: IOPAMIDOL 100 ML BOTTLE IV ONE (09:16)
[2023-05-26] MEDS: METOCLOPRAMIDE 10 MG/2 ML VIAL IV SCH ×3 (12:02→17:09)
[2023-05-26] MEDS ORDERED: morphine 4 MG/ML VIAL IV PRN (19:20)
[2023-05-26] MEDS ORDERED: morphine 4 MG/ML VIAL ONE (19:41)
[2023-05-27] MEDS: METOCLOPRAMIDE 10 MG/2 ML VIAL IV SCH ×5 (00:17→23:40)
[2023-05-27 06:23] LABS: Basophils # (Auto) 0.06 K/mcL (0.00-0.30); Basophils % (Auto) 0.2 % (0.0-2.0); Eosinophils # (Auto) 0.01 K/mcL (0.00-0.70); Eosinophils % (Auto) 0 % (0.0-7.0); Hematocrit 37.8 % (34.1-44.9); Hemoglobin 11.7 g/dL (11.2-15.7); Lymphocytes # (Auto) 0.48 K/mcL (1.50-4.80); Lymphocytes % (Auto) 1.9 % (15.5-49.0); Mean Cell Volume 99.5 fL (80.0-100.0); Mean Platelet Volume 9.7 fL (8.8-12.5); Monocytes # (Auto) 1.54 K/mcL (0.10-0.90); Monocytes % (Auto) 6.1 % (1.0-12.0); Neutrophils % (Auto) 91.2 % (38.0-78.0); Platelet Count 344 K/mcL (140-440); Red Cell Distribution Width 22.5 % (11.5-14.5); WBC 25.1 K/mcL (4.5-11.0)
[2023-05-27 06:52] LABS: ALT/SGPT 12 U/L (<40); AST/SGOT 16 U/L (<32); Alkaline Phosphatase 68 U/L (39-117); Bilirubin,Direct < 0.2 mg/dL (0-0.3); Bilirubin,Total 0.8 mg/dL (0.1-1.0); Blood Urea Nitrogen 24 mg/dL (8-23); Calcium 9.6 mg/dL (8.6-10.4); Carbon Dioxide 26 mmol/L (22-30); Chloride 111 mmol/L (96-108); Glomerular Filtration Rate 52; Glucose 135 mg/dL (70-105); Lactate Dehydrogenase 236 U/L (135-225); Phosphorous 3.4 mg/dL (2.5-4.5); Triglycerides 43 mg/dL (<150); Uric Acid 5.6 mg/dL (2.5-8.0)
[2023-05-27] MEDS ORDERED: MEROPENEM 2 GM in 0.9 % SODIUM CHLORIDE 50 ML IV SCH (08:15)
[2023-05-27] MEDS: PANTOPRAZOLE 40 MG VIAL IV SCH ×2 (08:45→18:03)
[2023-05-27] MEDS: MEROPENEM 2 GM in 0.9 % SODIUM CHLORIDE 100 ML IV SCH ×2 (09:16→20:26)
[2023-05-27] MEDS: 0.9 % SODIUM CHLORIDE 1,000 ML IV SCH ×2 (10:36→20:52)
[2023-05-27] MEDS: IPRATROPIUM/ALBUTEROL 3 ML AMPUL.NEB NEB SCH ×4 (10:51→23:37)
[2023-05-27] MEDS: POLYETHYLENE GLYCOL 3350 17 GM PACKET PO SCH ×4 (12:01→22:52)
[2023-05-28] MEDS: IPRATROPIUM/ALBUTEROL 3 ML AMPUL.NEB NEB SCH ×6 (03:18→22:54)
[2023-05-28 05:20] LABS: Appearance,Urine HAZY (Clear); Bacteria,Urine FEW /hpf (0); Bilirubin,Urine Negative (Negative); Color,Urine YELLOW; Culture Indicated,Urine Yes; Glucose,Urine (UA) Negative (Negative); Ketones,Urine Negative (Negative); Leukocyte Esterase,Urine Negative /uL (Negative); Mucus,Urine FEW /hpf; Nitrate,Urine Negative (Negative); Protein,Urine 100 mg/dL (Negative); Urine Blood 0.03 mg/dL (Negative); Urine Hyaline Cast 3 /lph (0-2); Urine RBC 1 /hpf (0-3); Urine Squamous Epithelial Cell 1 /hpf (0-4); Urine WBC 4 /hpf (0-4); Urobilinogen,Urine Negative
[2023-05-28] MEDS: METOCLOPRAMIDE 10 MG/2 ML VIAL IV SCH ×3 (05:39→16:54)
[2023-05-28] MEDS: 0.9 % SODIUM CHLORIDE 1,000 ML IV SCH ×2 (06:46→08:50)
[2023-05-28] MEDS: PANTOPRAZOLE 40 MG VIAL IV SCH ×2 (07:33→16:54)
[2023-05-28 07:42] LABS: Basophils # (Auto) 0.04 K/mcL (0.00-0.30); Basophils % (Auto) 0.3 % (0.0-2.0); Eosinophils # (Auto) 0.26 K/mcL (0.00-0.70); Eosinophils % (Auto) 1.7 % (0.0-7.0); Hematocrit 34.8 % (34.1-44.9); Hemoglobin 10.8 g/dL (11.2-15.7); Lymphocytes # (Auto) 0.57 K/mcL (1.50-4.80); Lymphocytes % (Auto) 3.6 % (15.5-49.0); Mean Cell Volume 98.9 fL (80.0-100.0); Mean Platelet Volume 10.1 fL (8.8-12.5); Monocytes # (Auto) 1.21 K/mcL (0.10-0.90); Monocytes % (Auto) 7.7 % (1.0-12.0); Neutrophils % (Auto) 86.3 % (38.0-78.0); Platelet Count 309 K/mcL (140-440); RBC 3.52 M/mcL (3.59-5.38); Red Cell Distribution Width 22.5 % (11.5-14.5); WBC 15.7 K/mcL (4.5-11.0)
[2023-05-28 08:03] LABS: ALT/SGPT 13 U/L (<40); AST/SGOT 18 U/L (<32); Albumin 4.1 gm/dL (3.2-5.2); Alkaline Phosphatase 73 U/L (39-117); Bilirubin,Direct < 0.2 mg/dL (0-0.3); Bilirubin,Total 0.6 mg/dL (0.1-1.0); Blood Urea Nitrogen 15 mg/dL (8-23); Calcium 9.2 mg/dL (8.6-10.4); Carbon Dioxide 27 mmol/L (22-30); Chloride 105 mmol/L (96-108); Globulin 2.1 gm/dL (2.2-3.7); Glomerular Filtration Rate 59; Glucose 113 mg/dL (70-105); Lactate Dehydrogenase 240 U/L (135-225); Phosphorous 1.4 mg/dL (2.5-4.5); Triglycerides 60 mg/dL (<150); Uric Acid 4.7 mg/dL (2.5-8.0)
[2023-05-28] MEDS: MEROPENEM 2 GM in 0.9 % SODIUM CHLORIDE 100 ML IV SCH ×2 (08:50→23:00)
[2023-05-28] MEDS: POTASSIUM PHOSPHATE 40 MEQ in DEXTROSE 5% IN WATER 500 ML IV SCH (15:09)
[2023-05-29] MEDS: METOCLOPRAMIDE 10 MG/2 ML VIAL IV SCH ×4 (01:06→17:14)
[2023-05-29] MEDS: POTASSIUM PHOSPHATE 40 MEQ in DEXTROSE 5% IN WATER 500 ML IV SCH (01:09)
[2023-05-29] MEDS: IPRATROPIUM/ALBUTEROL 3 ML AMPUL.NEB NEB SCH ×6 (03:00→23:08)
[2023-05-29 07:00] LABS: Basophils # (Auto) 0.04 K/mcL (0.00-0.30); Basophils % (Auto) 0.4 % (0.0-2.0); Eosinophils # (Auto) 0.19 K/mcL (0.00-0.70); Eosinophils % (Auto) 1.8 % (0.0-7.0); Hematocrit 35.1 % (34.1-44.9); Lymphocytes # (Auto) 0.41 K/mcL (1.50-4.80); Lymphocytes % (Auto) 3.9 % (15.5-49.0); Mean Corpuscular HGB Conc 31.3 g/dL (31.0-36.0); Mean Platelet Volume 10.3 fL (8.8-12.5); Monocytes # (Auto) 0.92 K/mcL (0.10-0.90); Monocytes % (Auto) 8.9 % (1.0-12.0); Neutrophils % (Auto) 84.4 % (38.0-78.0); Platelet Count 272 K/mcL (140-440); RBC 3.58 M/mcL (3.59-5.38); Red Cell Distribution Width 22.1 % (11.5-14.5); WBC 10.4 K/mcL (4.5-11.0)
[2023-05-29] MEDS: PANTOPRAZOLE 40 MG VIAL IV SCH ×2 (07:06→17:14)
[2023-05-29] MEDS: 0.9 % SODIUM CHLORIDE 1,000 ML IV SCH ×4 (07:06→20:09)
[2023-05-29 07:29] LABS: Carbon Dioxide 24 mmol/L (22-30); Chloride 102 mmol/L (96-108)
[2023-05-29 07:30] LABS: ALT/SGPT 13 U/L (<40); AST/SGOT 24 U/L (<32); Albumin 3.6 gm/dL (3.2-5.2); Albumin/Globulin Ratio 1.6 (1.0-2.3); Alkaline Phosphatase 74 U/L (39-117); Bilirubin,Direct < 0.2 mg/dL (0-0.3); Bilirubin,Total 0.9 mg/dL (0.1-1.0); Blood Urea Nitrogen 10 mg/dL (8-23); Calcium 9.3 mg/dL (8.6-10.4); Globulin 2.3 gm/dL (2.2-3.7); Glomerular Filtration Rate 68; Glucose 117 mg/dL (70-105); Lactate Dehydrogenase 330 U/L (135-225); Phosphorous 2.8 mg/dL (2.5-4.5); Triglycerides 57 mg/dL (<150); Uric Acid 3.7 mg/dL (2.5-8.0)
[2023-05-29 08:55] LABS: Basophils # (Auto) 0.02 K/mcL (0.00-0.30); Basophils % (Auto) 0.2 % (0.0-2.0); Eosinophils # (Auto) 0.11 K/mcL (0.00-0.70); Hematocrit 35.6 % (34.1-44.9); Hemoglobin 11.3 g/dL (11.2-15.7); Lymphocytes # (Auto) 0.25 K/mcL (1.50-4.80); Lymphocytes % (Auto) 2.3 % (15.5-49.0); Mean Cell Volume 96.7 fL (80.0-100.0); Mean Corpuscular HGB Conc 31.7 g/dL (31.0-36.0); Mean Platelet Volume 9.9 fL (8.8-12.5); Monocytes % (Auto) 9.2 % (1.0-12.0); Neutrophils % (Auto) 86.7 % (38.0-78.0); Platelet Count 322 K/mcL (140-440); RBC 3.68 M/mcL (3.59-5.38); WBC 10.9 K/mcL (4.5-11.0)
[2023-05-29] MEDS: MEROPENEM 2 GM in 0.9 % SODIUM CHLORIDE 100 ML IV SCH ×2 (09:44→20:12)
[2023-05-29] MEDS: BRIMONIDINE OPHTH DROPS 1 GTT BOTTLE 5ML OS SCH (20:08)
[2023-05-29] MEDS: IPRATROPIUM 0.03% NASAL SPRAY BOTTLE 30ML NAS SCH (20:08)
[2023-05-29] MEDS: MEMANTINE 10 MG TABLET PO SCH (20:09)
[2023-05-29] MEDS: GABAPENTIN 100 MG CAPSULE PO SCH (20:09)
[2023-05-29] MEDS: LATANOPROST OPHTH DROPS 2.5ML BOTTLE OS SCH (20:12)
[2023-05-30] MEDS: METOCLOPRAMIDE 10 MG/2 ML VIAL IV SCH ×4 (00:26→17:42)
[2023-05-30] MEDS: IPRATROPIUM/ALBUTEROL 3 ML AMPUL.NEB NEB SCH ×6 (03:07→23:00)
[2023-05-30] MEDS: 0.9 % SODIUM CHLORIDE 1,000 ML IV SCH ×3 (03:55→13:48)
[2023-05-30 06:40] LABS: Basophils # (Auto) 0.03 K/mcL (0.00-0.30); Basophils % (Auto) 0.5 % (0.0-2.0); Eosinophils # (Auto) 0.52 K/mcL (0.00-0.70); Eosinophils % (Auto) 7.9 % (0.0-7.0); Hematocrit 33.8 % (34.1-44.9); Hemoglobin 10.6 g/dL (11.2-15.7); Lymphocytes # (Auto) 0.32 K/mcL (1.50-4.80); Lymphocytes % (Auto) 4.9 % (15.5-49.0); Mean Cell Volume 98.3 fL (80.0-100.0); Mean Corpuscular HGB Conc 31.4 g/dL (31.0-36.0); Mean Platelet Volume 9.7 fL (8.8-12.5); Monocytes # (Auto) 0.75 K/mcL (0.10-0.90); Monocytes % (Auto) 11.4 % (1.0-12.0); Neutrophils % (Auto) 74.8 % (38.0-78.0); Platelet Count 308 K/mcL (140-440); RBC 3.44 M/mcL (3.59-5.38); Red Cell Distribution Width 21.9 % (11.5-14.5); WBC 6.6 K/mcL (4.5-11.0)
[2023-05-30 06:58] LABS: ALT/SGPT 13 U/L (<40); AST/SGOT 18 U/L (<32); Albumin 3.2 gm/dL (3.2-5.2); Albumin/Globulin Ratio 1.5 (1.0-2.3); Alkaline Phosphatase 62 U/L (39-117); Bilirubin,Direct < 0.2 mg/dL (0-0.3); Bilirubin,Total 0.5 mg/dL (0.1-1.0); Blood Urea Nitrogen 8 mg/dL (8-23); Calcium 8.9 mg/dL (8.6-10.4); Carbon Dioxide 28 mmol/L (22-30); Chloride 108 mmol/L (96-108); Globulin 2.2 gm/dL (2.2-3.7); Glomerular Filtration Rate 68; Glucose 100 mg/dL (70-105); Lactate Dehydrogenase 253 U/L (135-225); Phosphorous 1.8 mg/dL (2.5-4.5); Triglycerides 59 mg/dL (<150); Uric Acid 3.5 mg/dL (2.5-8.0)
[2023-05-30] MEDS: LEVOTHYROXINE SODIUM 112 MCG TABLET PO SCH (07:26)
[2023-05-30] MEDS: PANTOPRAZOLE 40 MG VIAL IV SCH (07:27)
[2023-05-30] MEDS: PANTOPRAZOLE 40 MG PACKET PO SCH (07:27)
[2023-05-30] MEDS: MEROPENEM 2 GM in 0.9 % SODIUM CHLORIDE 100 ML IV SCH ×2 (08:43→21:22)
[2023-05-30] MEDS: GABAPENTIN 100 MG CAPSULE PO SCH ×2 (08:43→21:24)
[2023-05-30] MEDS: MEMANTINE 10 MG TABLET PO SCH ×2 (08:43→21:24)
[2023-05-30] MEDS: DONEPEZIL 23MG PO SCH (16:26)
[2023-05-30] MEDS: POTASSIUM PHOSPHATE 40 MEQ in DEXTROSE 5% IN WATER 500 ML IV SCH ×2 (16:27→21:31)
[2023-05-30] MEDS: IPRATROPIUM 0.03% NASAL SPRAY BOTTLE 30ML NAS SCH ×2 (16:27→21:21)
[2023-05-30] MEDS: BRIMONIDINE OPHTH DROPS 1 GTT BOTTLE 5ML OS SCH ×2 (16:47→21:22)
[2023-05-30] MEDS: LATANOPROST OPHTH DROPS 2.5ML BOTTLE OS SCH (21:25)
[2023-05-31] MEDS: METOCLOPRAMIDE 10 MG/2 ML VIAL IV SCH ×3 (00:08→11:59)
[2023-05-31] MEDS: IPRATROPIUM/ALBUTEROL 3 ML AMPUL.NEB NEB SCH ×2 (03:06→07:29)
[2023-05-31] MEDS: 0.9 % SODIUM CHLORIDE 1,000 ML IV SCH ×2 (04:53→13:13)
[2023-05-31] MEDS: PANTOPRAZOLE 40 MG PACKET PO SCH (07:29)
[2023-05-31] MEDS: LEVOTHYROXINE SODIUM 112 MCG TABLET PO SCH (07:29)
[2023-05-31 08:26] VITALS: TEMP 98.6
[2023-05-31 08:27] VITALS: O2SAT 90
[2023-05-31] MEDS: IPRATROPIUM 0.03% NASAL SPRAY BOTTLE 30ML NAS SCH (10:02)
[2023-05-31] MEDS: DONEPEZIL 23MG PO SCH (10:02)
[2023-05-31] MEDS: BRIMONIDINE OPHTH DROPS 1 GTT BOTTLE 5ML OS SCH (10:03)
[2023-05-31] MEDS: MEMANTINE 10 MG TABLET PO SCH (10:03)
[2023-05-31] MEDS: GABAPENTIN 100 MG CAPSULE PO SCH (10:03)
[2023-05-31] MEDS: MEROPENEM 2 GM in 0.9 % SODIUM CHLORIDE 100 ML IV SCH (10:04)
== END 2023-05-31 13:35 | DRG 388 ==
LOC: ED 04:38 → MEDSUR 04:38
PROVIDERS: ADMIT Family Medicine Adult Medicine; ATTEND Family Medicine Adult Medicine